=== PATIENT | female | born 1940 | race Caucasian/White ===

== ENCOUNTER → 2023-06-25 13:58 | Outpatient (REF) | payer OTHER, SELFPAY | LOC: WOUND 13:58 | PROVIDERS: ATTENDING PHYSICIAN Surgery; REFERRING PHYSICIAN Family Medicine | DX: L97.822 Non-pressure chronic ulcer of other part of left lower leg with fat layer exposed (principal); S81.812A Laceration without foreign body, left lower leg, initial encounter; Z79.52 Long term (current) use of systemic steroids; J45.40 Moderate persistent asthma, uncomplicated; N20.0 Calculus of kidney; N13.2 Hydronephrosis with renal and ureteral calculous obstruction; X58.XXXA Exposure to other specified factors, initial encounter | CPT/HCPCS: 11042; 99213 ==

== ENCOUNTER → 2023-07-10 13:32 | Outpatient (REF) | payer OTHER, SELFPAY | LOC: WOUND 13:32 | PROVIDERS: ATTENDING PHYSICIAN Surgery; REFERRING PHYSICIAN Internal Medicine Geriatric Medicine | DX: S81.812A Laceration without foreign body, left lower leg, initial encounter (principal); L97.822 Non-pressure chronic ulcer of other part of left lower leg with fat layer exposed; Z79.52 Long term (current) use of systemic steroids; J45.40 Moderate persistent asthma, uncomplicated; N13.2 Hydronephrosis with renal and ureteral calculous obstruction; X58.XXXA Exposure to other specified factors, initial encounter | CPT/HCPCS: 11042 ==

== ENCOUNTER → 2023-07-16 15:08 | Outpatient (REF) | payer OTHER, SELFPAY | LOC: WOUND 15:08 | PROVIDERS: ATTENDING PHYSICIAN Surgery; REFERRING PHYSICIAN Family Medicine | DX: S81.812A Laceration without foreign body, left lower leg, initial encounter (principal); L97.822 Non-pressure chronic ulcer of other part of left lower leg with fat layer exposed; Z79.52 Long term (current) use of systemic steroids; J45.40 Moderate persistent asthma, uncomplicated; N20.0 Calculus of kidney; N13.2 Hydronephrosis with renal and ureteral calculous obstruction; X58.XXXA Exposure to other specified factors, initial encounter | CPT/HCPCS: 11042 ==

== ENCOUNTER → 2023-07-27 13:58 | Outpatient (REF) | payer OTHER, SELFPAY | LOC: WOUND 13:58 | PROVIDERS: ATTENDING PHYSICIAN Surgery; FAMILY PHYSICIAN Family Medicine | DX: S81.812A Laceration without foreign body, left lower leg, initial encounter (principal); L97.822 Non-pressure chronic ulcer of other part of left lower leg with fat layer exposed; Z79.52 Long term (current) use of systemic steroids; J45.40 Moderate persistent asthma, uncomplicated; N13.2 Hydronephrosis with renal and ureteral calculous obstruction | CPT/HCPCS: 11042; 97607 ==

== ENCOUNTER 2023-07-28 07:08 | Inpatient (IN) | payer OTHER, SELFPAY ==
[2023-07-28] VITALS (8 sets, daily range): BP systolic 99–166; BP diastolic 43–64
[2023-07-28 02:59] LABS: % Basophils 0.3 % (0-2); % Eosinophils 0.9 % (0-6); % Immature Granulocytes 0.7 % (0-0.5); % Lymphocytes 5.5 % (20.5-51.1); % Monocytes 1.5 % (1.7-9.3); % Neutrophils 91.1 % (42.2-75.2); Absolute Eosinophils 0.1 10^3/uL (0-0.7); Absolute Immature Granulocytes 0.1 10^3/uL (0-0.05); Absolute Lymphocytes 0.7 10^3/uL (1.2-3.4); Absolute Monocytes 0.2 10^3/uL (0.1-0.6); Hemoglobin 12.2 g/dL (12.0-16.0); Mean Corpuscular Hgb 29.3 pg (27.0-31.0); Mean Corpuscular Volume 88.9 fL (81.0-99.0); Mean Platelet Volume 9.2 fL (7.4-10.4); Nucleated Red Blood Cells % 0 %; Platelet Count 248 10^3/uL (130-400); Red Blood Cell Count 4.16 10^6/uL (4.20-5.40); Red Cell Dist. Width 15.8 % (11.5-14.5); White Blood Cell Count 12.1 10^3/uL (4.8-10.8)
[2023-07-28 03:13] LABS: ALT (SGPT) 20 U/L (0-35); AST (SGOT) 29 U/L (14-36); Albumin 3.9 g/dl (3.5-5.0); Alkaline Phosphatase 70 U/L (38-126); Blood Urea Nitrogen 38 mg/dl (7-17); Calcium 9.2 mg/dl (8.4-10.2); Carbon Dioxide 27 mmol/L (22-30); Chloride 109 mmol/L (98-107); Estimated Creatinine Clearance 49 ml/min; Glucose 107 mg/dl (70-99); Potassium 3.4 mmol/L (3.5-5.1); Sodium 144 mmol/L (135-145); Total Bilirubin 0.6 mg/dl (0.2-1.3); Total Protein 6.6 g/dl (6.3-8.2); eGFR > 60.00
--- NOTE | 2023-07-28 04:01 | ED.GENMED ---
History of Present Illness
<JASMIN Beal - Last Filed: 07/28/23 05:16>
General
Chief Complaint: Back Pain
Source: patient and family
Exam Limitations: none
Time Seen by Provider: 07/28/23 03:47
Nursing documentation reviewed up to this point in time: agreed with
Travel History
Have you had any contact with someone who has COVID-19?: No
Do you have any symptoms of coronavirus? Fever > 100 degrees, chills, cough, shortness of breath, sore throat, loss of taste or smell, muscle aches, or headache?: No
History of Present Illness
History of Present Illness:
This is an 82 year old female, with a PMH of HTN, DVT, cellulitis right lower extremity and chronic wounds on bilateral lower extremity, who presents to the ED c/o back pain x 2 hours. Pt states she awoke with sudden onset lower back pain that has
been worsening. She states she has had kidney stones twice in the past and this pain feels very similar to that. Pt's daughter took her temperature and it was 100.6F. Pt is also having associated nausea but has not vomited. Pt also saw her wound
care doctor this morning where her left leg was debrided and a wound vac was put into place. Since the appointment, she has had increasing warmth and redness to her right upper leg. She denies any CP, SOB, dysuria, urinary frequency, or abdominal
pain.
Past History
<JASMIN Beal - Last Filed: 07/28/23 05:16>
Past History
ED Past Medical History: Asthma, Cancer (Squamous cell CA), HTN, Hypercholesterolemia, Other (Kidney stones, recurrent UTI, Cellulitis, DVT) and Other (kidney stone)
ED Past Surgical History: Tonsilectomy, Urological (Renal stent) and Other (Sinus surgery)
Social History
Tobacco: Smoker
Alcohol: None
Personal:
Living: with family
Family History
Family History: Other (Noncontributory)
Review of Systems
<Liliy[place]ill JASMIN Kamara - Last Filed: 07/28/23 05:16>
Review of Systems
Allergies reviewed?: Yes
Other source history: family
All Other Systems: ROS reviewed and negative except as documented in HPI and ROS
Constitutional: Reports fever
EENT: Reports no symptoms
Respiratory: Reports no symptoms; Denies trouble breathing
Cardiac: Reports no symptoms; Denies chest pain
ABD/GI: Reports nausea; Denies abdominal pain or vomiting
: Reports flank pain; Denies dysuria or frequency
Musculoskeletal: Reports back pain
Skin: Reports no symptoms
Neurological: Reports no symptoms
Psychiatric: Reports no symptoms
Phy Exam
<JASMIN Beal - Last Filed: 07/28/23 05:16>
General Physical Exam
General Presentation: moderate distress (uncomfortable)
General age: appears stated age
General Skin: warm and dry
General Habitus: elderly
General Mental: alert
General Hydration: appears well hydrated
ENT Exam
ENT Exam: EOMI, neck supple, normocephalic and swallowing well
Eye Exam
Eye Exam: PERRL and EOMI
Cardiovascular Exam
Cardiovascular Exam: regular rate/rhythm, no murmur and normal peripheral pulses
Pulmonary Exam
Pulmonary Exam: lungs clear, no respiratory distress, no rales, no crackles, no rhonchi and no wheezing
Gastrointestinal Exam
Gastrointestinal Exam: normal bowel sounds, non tender, soft, non distended and other (unable to assess CVA tenderness due to pt's condition)
Neurological Exam
Neurological Exam: alert and oriented x3
Musculoskeletal Exam
Musculoskeletal Exam: back pain and edema (RLE > LLE)
Skin Exam
Skin Exam: erythema, warmth and other (right leg edema and erythema. tenderness along right calf and thigh. left leg in wound vac)
Psychiatric Exam
Psychiatric Exam: normal mood/affect
Course
<JASMIN Beal - Last Filed: 07/28/23 05:16>
Orders/Labs/Results
Orders:
Orders
07/28/23 02:52
CMP [Comprehensive Metabolic Panel] Urgent
Complete Blood Count/With Diff Urgent
07/28/23 04:17
HYDROmorphone [Dilaudid] 0.5 mg IV NOW STA
Ketorolac [Toradol] 30 mg IV NOW STA
US Periph Venous LOWER Ext RT Urgent
Comment:
Reason For Exam: R leg swelling
07/28/23 04:18
CT Abd/pel Without Iv Or Oral Urgent
Comment:
Reason For Exam: R flank pain
07/28/23 04:40
Urinalysis Reflex To Culture Urgent
Date Specimen was Collected: 07/28/23
Time Specimen was Collected: 04:38
Urine Microscopic Reflex Cult Urgent
07/28/23 04:59
Vancomycin [Vancocin] 1,500 mg 0.9% Sodium Chloride [Nss] 20 ml 0.9% Sodium Chloride 250 ml [Nss] 250 ml IV NOW
Abnormal Lab Results
07/28/23 07/28/23
02:52 04:40
WBC 12.1 H 10^3/uL
(4.8-10.8)
RBC 4.16 L 10^6/uL
(4.20-5.40)
RDW 15.8 H %
(11.5-14.5)
Abs Immat Gran (auto) 0.1 H 10^3/uL
(0-0.05)
Absolute Neuts (auto) 11.0 H 10^3/uL
(1.4-6.5)
Absolute Lymphs (auto) 0.7 L 10^3/uL
(1.2-3.4)
Immature Gran % 0.7 H %
(0-0.5)
Neutrophils % 91.1 H %
(42.2-75.2)
Lymphocytes % 5.5 L %
(20.5-51.1)
Monocytes % 1.5 L %
(1.7-9.3)
Potassium 3.4 L mmol/L
(3.5-5.1)
Chloride 109 H mmol/L
(98-107)
BUN 38 H mg/dl
(7-17)
Glucose 107 H mg/dl
(70-99)
Ur Occult Blood Reflex 1+ A
(Negative)
Leukocyte Esterase Rfl Trace A
(Negative)
Urine RBC 16-20 A /HPF
(0-2)
07/28/23 02:52
07/28/23 02:52
Vital Signs
Initial and Last Documented VS:
Initial Vital Signs
Pulse Resp Pulse Ox
84 20 96
07/28/23 02:30 07/28/23 02:30 07/28/23 02:30
Last Documented Vital Signs
Temp Pulse Resp BP Pulse Ox
98.7 F 80 18 134/43 95
07/28/23 02:33 07/28/23 03:45 07/28/23 03:45 07/28/23 03:00 07/28/23 03:30
<Joshua Anne, DO - Last Filed: 07/28/23 05:57>
Orders/Labs/Results
Orders:
Orders
07/28/23 02:52
CMP [Comprehensive Metabolic Panel] Urgent
Complete Blood Count/With Diff Urgent
07/28/23 04:17
HYDROmorphone [Dilaudid] 0.5 mg IV NOW STA
Ketorolac [Toradol] 30 mg IV NOW STA
US Periph Venous LOWER Ext RT Urgent
Comment:
Reason For Exam: R leg swelling
07/28/23 04:18
CT Abd/pel Without Iv Or Oral Urgent
Comment:
Reason For Exam: R flank pain
07/28/23 04:40
Urinalysis Reflex To Culture Urgent
Date Specimen was Collected: 07/28/23
Time Specimen was Collected: 04:38
Urine Microscopic Reflex Cult Urgent
07/28/23 04:59
Vancomycin [Vancocin] 1,500 mg 0.9% Sodium Chloride [Nss] 20 ml 0.9% Sodium Chloride 250 ml [Nss] 250 ml IV NOW
Abnormal Lab Results
07/28/23 07/28/23
02:52 04:40
WBC 12.1 H 10^3/uL
(4.8-10.8)
RBC 4.16 L 10^6/uL
(4.20-5.40)
RDW 15.8 H %
(11.5-14.5)
Abs Immat Gran (auto) 0.1 H 10^3/uL
(0-0.05)
Absolute Neuts (auto) 11.0 H 10^3/uL
(1.4-6.5)
Absolute Lymphs (auto) 0.7 L 10^3/uL
(1.2-3.4)
Immature Gran % 0.7 H %
(0-0.5)
Neutrophils % 91.1 H %
(42.2-75.2)
Lymphocytes % 5.5 L %
(20.5-51.1)
Monocytes % 1.5 L %
(1.7-9.3)
Potassium 3.4 L mmol/L
(3.5-5.1)
Chloride 109 H mmol/L
(98-107)
BUN 38 H mg/dl
(7-17)
Glucose 107 H mg/dl
(70-99)
Ur Occult Blood Reflex 1+ A
(Negative)
Leukocyte Esterase Rfl Trace A
(Negative)
Urine RBC 16-20 A /HPF
(0-2)
07/28/23 02:52
07/28/23 02:52
Vital Signs
Initial and Last Documented VS:
Initial Vital Signs
Pulse Resp Pulse Ox
84 20 96
07/28/23 02:30 07/28/23 02:30 07/28/23 02:30
Last Documented Vital Signs
Temp Pulse Resp BP Pulse Ox
98.7 F 80 18 134/43 95
07/28/23 02:33 07/28/23 03:45 07/28/23 03:45 07/28/23 03:00 07/28/23 03:30
<JASMIN Beal - Last Filed: 07/28/23 05:16>
*Critical Care Note
Total Time (30-74mins, 75-104mins- exclusive of procedures): Not Applicable
ED Attending Note
<JASMIN Beal - Last Filed: 07/28/23 05:16>
-
Portions of this chart may have been created with voice recognition software.� Occasional wrong word or��sound alike� substitutions may have occurred due to the inherent limitations of voice recognition software.
<Joshua Anne DO - Last Filed: 07/28/23 05:57>
ED Attending Note
Patient seen and examined by attending physician: Yes
I performed the substantive portion of visit, reviewed & personally made and approve the management plan that is documented in note by myself or SHAUNA.: Yes
ED Attending Note:
I have seen and evaluated the patient with a [id number] encounter. I have spoken to the advance practicer provider and involved in the medical history, the physical exam, medical decision making.
Evaluation and management service: agree unless noted differently below.
Results interpretation: agree unless noted differently below.
Focused HPI: 82-year-old female presenting with daughter for evaluation of right flank pain and worsening right leg swelling and redness. Patient has chronic leg wounds and she has a wound VAC on her left leg. Daughter noticed that the right leg
became swollen, red and tender over the past 24 hours. She has a history of cellulitis requiring IV antibiotics and history of DVT. Patient also can and has a history of kidney stones. Daughter states that she is admitted to the hospital when her
leg looks like this
Physical exam: Patient uncomfortable. Mild right CVA tenderness. Right leg edema and erythema. Tenderness to calf and thigh. Left leg is wrapped with wound VAC.
Medical Decision Making: Given her red and swollen leg, will obtain ultrasound to rule out DVT. Will empirically start vancomycin given concern for cellulitis with evidence of leukocytosis and fevers described at home. Given the flank pain, will
obtain CT to rule out kidney stone pathology and will obtain urinalysis. Will ultimately admit
Update 5:55 AM: CT negative for kidney stone. There is evidence of questionable cellulitis on CT findings of the thigh which correlate to physical exam
Discharge Plan
Departure
Patient Disposition: Admit
Date of Disposition: 07/28/23
Time of Disposition: 05:57
Admit to: Med/Surg
Presentation/result/management discussed w/ accepting MD/DO: Hospitalist
Discharge Problem:
Bilateral cellulitis of lower leg
Prescriptions:
No Action
methylprednisolone 4 MG tablet
4 mg PO DAILY
cranberry extract [Ellura] 200 mg Capsule
36 mg PO DAILY Qty: 0
carvedilol 12.5 MG tablet
12.5 mg PO BID
albuterol sulfate 2.5 mg /3 mL (0.083 %) Solution For Nebulization
2.5 mg INHALATION R Q4HPRN PRN (Reason: sob)
therapeutic multivitamin Tablet
1 tab PO DAILY
olmesartan-hydrochlorothiazide [Benicar HCT] 40-25 mg Tablet
1 tab PO DAILY
amlodipine 5 mg tablet
5 mg PO DAILY Qty: 30 0RF
fluticasone propion-salmeterol [Wixela Inhub] 500-50 mcg/dose Blister With Device
1 inh INHALATION R BID
acetaminophen [Tylenol] 325 mg Tablet
650 mg PO Q4HPRN PRN (Reason: mild pain)
linezolid 600 mg Tablet
600 mg PO BID Qty: 9 0RF
Referrals:
Roberto Carlos Almanza, DO [Family Provider] -
Interventions
Interventions:
*Risk Screen - Suicide Last Done: 07/28/23 02:24
*General Assessment Last Done: 07/28/23 02:24
*Neglect/Abuse Screening Last Done: 07/28/23 02:24
ED- Fall Risk Assessment Last Done: 07/28/23 02:28
*ED COVID-19 Vaccine History Last Done: 07/28/23 02:24
ED-Musculoskeletal Assessment Last Done: 07/28/23 02:31
[2023-07-28] MEDS: DILAUDID 0.5 MG IV (04:23)
[2023-07-28] MEDS: TORADOL 30 MG IV (04:23)
[2023-07-28 05:07] LABS: Urine Albumin Negative (Neg - Trace); Urine Bilirubin Negative (Negative); Urine Character Clear (Clear); Urine Color Yellow; Urine Glucose Negative (Negative); Urine Ketone Negative (Negative); Urine Leukocyte Trace (Negative); Urine Nitrite Negative (Negative); Urine Occult Blood 1+ (Negative); Urine Urobilinogen Negative (Neg - 1+)
[2023-07-28] MEDS: VANCOCIN 300 ML IV (05:14)
[2023-07-28] MEDS: VANCOCIN 300 MG IV (05:14)
[2023-07-28 05:35] LABS: Urine Squamous Cell >30 /LPF (Few)
[2023-07-28 05:36] LABS: Urine Red Blood Cell 16-20 /HPF (0-2)
--- NOTE | 2023-07-28 06:54 | HPS.HSE ---
Family Physician
-
Family Physician: Roberto Carlos Almanza
Chief Complaint
-
Back Pain
History of Present Illness
Patient is an 82y F with PMH significant for PAD, chronic LE skin changes / cellulitis, prior DVT and squamous cell skin cancer who presents to ED complaining of back pain and hip pain. Patient states that she had some lower back discomfort last
PM when going to bed. She slpet poorly and noted worsening low back and bilateral hip pain overnight. Early this AM, she called her daughter for assistance and noted that she was unable to get out of bed due to her pain. Patient denies any N/V,
chills, diaphoresis, etc. She denies any recent injury, fall or trauma.
Patient [facility] and on 07/27 she underwent debridement and wound vac change to the E. Wound Vac has been in place overall since June.
Patient presented to the ED this AM concerned that she might have a kidney stone. She has had these in the past and symptoms seemed similar. CT scan in the ED revealed no ureteral / obstructing stones.
Patient was noted to have redness and swelling of the RLE > LLE in the ED and was referred for admission for recurrent RLE cellulitis.
US done in the ED was negative for DVT.
Medical History
Past Medical History
Past Medical History: Reports Other
Additional Past Medical History:
Asthma
GERD
Hypertension
Chronic bilateral lower extremity wounds
History of DVT
Squamous cell carcinoma (LLE)
Actinic Keratoses
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
Past Surgical History: Reports Other
Additional Past Surgical History:
Skin Cancer Excision / Skin Grafting LLE
Tonsillectomy
Sinus surgery
Social History
Tobacco: Former Smoker (Quit smoking 40 years ago.)
Alcohol: None
Drug: Marijuana
Personal: Single
Living: With Family
Family History
Family History: Not pertinent
Allergies / Home Medications
Allergies reflects when Allergies were last updated in [facility].
Home Medications with original date entered in [facility]
Allergy/Medication List:
Allergies
Allergy/AdvReac Type Severity Reaction Status Date / Time
doxycycline Allergy Unknown Verified 07/28/23 02:34
morphine Allergy Unknown Verified 07/28/23 02:34
ofloxacin [From Floxin] Allergy TOLERATED Verified 07/28/23 02:34
CIPRO
oxycodone Allergy Nausea / Verified 07/28/23 02:34
Vomiting
sulfamethoxazole Allergy Swelling Verified 07/28/23 02:34
[From Bactrim]
trimethoprim [From Bactrim] Allergy Swelling Verified 07/28/23 02:34
Home Medications
methylprednisolone 4 mg tablet 4 mg PO DAILY inflammation 03/18/20
carvedilol 12.5 mg tablet 12.5 mg PO BID Blood pressure 05/10/22
cranberry extract 200 mg capsule (Ellura) 36 mg PO DAILY Supplement ##0 05/10/22
albuterol sulfate 2.5 mg/3 mL (0.083 %) solution for nebulization 2.5 mg inhalation R Q4HPRN PRN sob 10/31/22
olmesartan 40 mg-hydrochlorothiazide 25 mg tablet (Benicar HCT) 1 tab PO DAILY Blood Pressure 10/31/22
therapeutic multivitamin 1 tab PO DAILY Supplement 10/31/22
amlodipine 5 mg tablet 5 mg PO DAILY Blood pressure #30 tabs 11/03/22
fluticasone 500 mcg-salmeterol 50 mcg/dose blistr powdr for inhalation (Wixela Inhub) 1 inh inhalation R BID Lung/Breathing Issues 03/03/23
acetaminophen 325 mg tablet (Tylenol) 650 mg PO Q4HPRN PRN mild pain 03/31/23
Review of Systems
-
History Source: Patient
A 12 point ROS was completed and negative except as noted: Yes
Constitutional: Reports Fever and Fatigue; Denies Chills
EENT: Denies Sore Throat
Respiratory: Denies Cough or Trouble Breathing
Cardiac: Denies Chest Pain or Palpitations
Abdomen/GI: Denies Abdominal Pain, Nausea, Vomiting or Diarrhea
: Reports Flank Pain; Denies Dysuria or Frequency
Musculoskeletal: Reports Joint Pain and Edema
Skin: Reports Other (Redness)
Neurological: Denies Dizzy or Headache
Physical Exam
Vital Signs
Vital Signs
Temp Pulse Resp BP Pulse Ox
98.7 F 82 21 114/46 99
07/28/23 02:33 07/28/23 06:30 07/28/23 06:30 07/28/23 06:28 07/28/23 06:30
Physical Exam
General: Other (82y F in no acute distress.)
HEENT: Moist mucous membranes and PERRLA
Respiratory: Clear; No Wheezes, Rales or Rhonchi
Cardiac: S1/S2 and Regular Rhythm; No Murmur
GI: Soft, Non Tender, Non Distended and Normal Bowel Sounds
Musculoskeletal: Other (Lacy erythema R medial thigh with more confluent erythema and associated tenderness in the lower leg. Small superficial laceration superior to the R knee without discharge. Wound Vac in place L lower leg.)
Skin: Other (Scattered actinic keratoses / chronic skin changes.)
Neuro: AO x 3
Laboratory Results
-
07/28/23 02:52
07/28/23 02:52
Laboratory Results
Total Bilirubin 0.6 mg/dl (0.2-1.3) 07/28/23 02:52
AST 29 U/L (14-36) 07/28/23 02:52
ALT 20 U/L (0-35) 07/28/23 02:52
Alkaline Phosphatase 70 U/L (38-126) 07/28/23 02:52
Impression/Plan
-
A/P: Patient is an 82y F with PMH significant for ASCVD / PAD, chronic LE wounds and squamous cell skin cancer who presents to ED complaining of low back pain / hip pain / leg pain.
Back Pain
Cellulitis
- Admit for further evaluation and treatment.
- Back pain is now resolved - ? related to RLE cellulitis - though not certain how this would correlate with her area of complaint.
- Increased swelling, pain and redness in the RLE per patient. Recent incidental skin puncture / laceration (with her fingernail) may be source.
- IV abx with Vanco for now.
- Wound Care evaluation for RLE as well as chronic / LLE wound vac management.
- Follow for clinical improvement.
- PT / OT evaluations.
- Monitor for any new / recurrent symptoms.
- Consider spine imaging in this chronically immunocompromised patient if back pain recurs.
ASCVD / PAD
- Established LE PAD. Non-invasive studies done during prior admission (04/2023).
- Follow-up with Vascular Surgery as an outpatient.
Benign Hypertension
- Stable. Continue outpatient regimen with holding parameters.
Possible Adrenal Insufficiency
- Continue chronic methylprednisolone with no changes.
Asthma without Acute Exacerbation
- Stable. Follow for any new dyspna, wheezing, etc.
- Albuterol PRN.
History of DVT
DVT Prophylaxis
- US today is negative for DVT
- Subcut Heparin
Code Status: Full
--- NOTE | 2023-07-28 08:00 | W.PN.HOSP.TC ---
Today's Communication/Plan
-
see A/P
Assessment / Plan
Assessment / Plan
82y F with PMH significant for PAD, chronic LE skin changes / cellulitis, prior DVT and squamous cell skin cancer who presented to ED complaining of back pain and hip pain.�Patient stated that she had some lower back discomfort when going to
bed.� She slept poorly and noted worsening low back and bilateral hip pain overnight.�Early in the morning, she called her daughter for assistance and noted that she was unable to get out of bed due to her pain.�Patient denies any N/V, chills,
diaphoresis, etc.� She denies any recent injury, fall or trauma.
Patient is followed by [facility] and on 07/27 she underwent debridement and wound vac change to the LLE.� Wound Vac has been in place overall since June.
Patient presented to the ED with concern that she might have a kidney stone.� She has had these in the past and symptoms seemed similar.�
CT scan in the ED revealed no ureteral / obstructing stones.
Patient was noted to have redness and swelling of the RLE > LLE in the ED and was referred for admission for recurrent RLE cellulitis.
US done in the ED was negative for DVT.
A/P:
# Back Pain- resolved
# Possible cellulitis
Back pain is now resolved - ? related to RLE cellulitis - though not certain how this would correlate with her area of complaint.
Increased swelling, pain and redness in the RLE per patient.�Recent incidental skin puncture / laceration (with her fingernail) may be source.
Unclear if pt is on linezolid at home or not (pt states that she is not, linezolid is currently unverified). She was started with IV abx Vanco.
Wound Care evaluation for RLE as well as chronic / LLE wound vac management.
ID CS
Follow for clinical improvement.
PT / OT evaluations.
Consider spine imaging in this chronically immunocompromised patient if back pain recurs.
# ASCVD / PAD
Established LE PAD.�Non-invasive studies done during prior admission (04/2023).
Follow-up with Vascular Surgery as an outpatient.
# Benign Hypertension- Stable.�
Continue outpatient regimen with holding parameters.
# Possible Adrenal Insufficiency
Continue chronic methylprednisolone with no changes.
# Asthma without Acute Exacerbation- Stable.�
Follow for any new dyspna, wheezing, etc.
Albuterol PRN.
# History of DVT
US on admission negative for DVT
# Hypokalemia
Replete K
DVT Prophylaxis: Lovenox SQ
Code Status:� Full
Pending proper med recc
updated daughter on the phone
Anticipated Discharge: 24 - 48 hours
Subjective/Interval History
-
Date of Service: July 28, 2023
Objective Data
-
Labs:
Laboratory Results
07/28/23
02:52
WBC 12.1 H
Hgb 12.2
Hct 37.0
Plt Count 248
Sodium 144
Potassium 3.4 L
Chloride 109 H
Carbon Dioxide 27
BUN 38 H
Creatinine 0.8
Glucose 107 H
Calcium 9.2
Total Bilirubin 0.6
AST 29
ALT 20
Alkaline Phosphatase 70
Vital Signs:
Vital Signs
Temp Pulse Resp BP Pulse Ox
37.4 C 78 22 99/64 99
07/28/23 07:51 07/28/23 07:51 07/28/23 07:51 07/28/23 07:51 07/28/23 07:51
Review of Systems
-
All other systems: Reviewed and negative
Physical Exam
-
General: Well Developed, Well Nourished, Comfortable and Appears Chronically Ill
HEENT: Normocephalic
Respiratory: Clear to Auscultation and Non Labored Respirations; Negative Accessory Resp Muscle Use
Cardiac: Regular Rhythm and S1/S2
GI: Soft and Nontender
Skin: Other (R leg with wound vac )
Neuro: Awake and Alert
Psych: Calm and Intact Judgement/Insight
Data Reviewed
-
Ultrasound: Report Reviewed by me
Labs: Labs Reviewed by me
[2023-07-28] MEDS: KCL 40 MEQ PO (08:22)
--- NOTE | 2023-07-28 10:57 | PHA.VAN.IN ---
Assessment
- Assessment
Renal Function: Appears similar to baseline
Renal Function may be Overestimated due to: age
Historical Micro: History of MRSA infection
- Previous Dosing Experience
Previous Regimen: 1000mg q24h
Date of Regimen: 04/2023
Provided Trough of: 9.6
Patient's SCR is: Similar to previous dosing experience
Patient's weight is: Elevated compared to previous dosing experience (69kg now vs 59kg (04/2023))
AUC Dosing Plan
- Dosing Variables
Dosing Weight (kg): 69
Dosing CrCl (ml/min): 49
Vd coefficient (L/kg): 0.7
- Empiric Dosing
Initial / Loading Dose: 1500mg
Maintenance Regimen: 1000mg q24h
Estimated AUC (mcg*h/mL): 470
Estimated Peak (mcg*h/mL): 31.3
Estimated Trough (mcg/ml): 11.1
Estimated Half Life (H): 15.4
- Monitoring
No levels ordered at this time: consider at steady state
Pharmacokinetics Vancomycin I
- -
Patient Age: 82
Patient Sex: Female
Vancomycin Day #: 1
Indication: Skin And Soft Tissue
Requesting Provider: Dr. Terrell
Pertinent Antimicrobial Allergies:
doxycycline=unknown
bactrim=swelling
Height / Weight:
Height 5 ft 2 in
Actual Weight 69 kg
IBW in k.1
- Vital Signs / Lab Results
Temp Pulse Resp BP Pulse Ox
99.4 F 78 22 99/64 99
07/28/23 07:51 07/28/23 07:51 07/28/23 07:51 07/28/23 07:51 07/28/23 07:51
Lab Results - Hematology
07/28/23
02:52
WBC 12.1 H
Lab Results - Chemistry
07/28/23
02:52
BUN 38 H
Creatinine 0.8
Estimated Creat Clear 49
Albumin 3.9
Lab Results - Urine
07/28/23
04:40
Urine Nitrite (Reflex) Negative
Leukocyte Esterase Rfl Trace A
Urine WBC (Reflex) 6-10
Ur Squamous Epith Cells >30
[2023-07-28] MEDS: NORVASC 5 MG PO (12:18)
[2023-07-28] MEDS: MEDROL 4 MG PO (12:18)
[2023-07-28] MEDS: THERAGRAN 1 TABLET PO (12:18)
--- NOTE | 2023-07-28 13:17 | CON.ID ---
Consultation
-
Date/Time Consultation Requested: 07/28/21 8:22
Date/Time Consultation Performed: 07/28/23 13:17
Requesting Provider: Dr Romero
Performing Provider: Dr Lemon
Reason for Consultation: cellulitis
Chief Complaint / Past History
Chief Complaint
back pain
History of Present Illness
Ms Teixeira is an 82 year old female with history of PAD, SCC of the LEFT LE, chronic wound on the LEFT distal lateral leg who presented here today for back and hip pain x24 hours and 24 hours of RIGHT leg redness, tenderness swelling. Hip pain is
bilateral and progressed over the day to the point that she couldnt get out of bed. No nasuea, vomiting chills, sweats, injury to the area. On 07/27 she underwent debridement and wound vac change of the LLE. A photo is available in the ecw wound
care note and was without erythema, warmth, tenderness or drainage. There was concern for renal stone per patient and she has a history of renal stones
Since arrival here tmax 100.5 orally, bp stable, wbc 12, hgb 12, plt 248, a L shift is noted, cr 0.8, CT a/p: possible ileus, severe DJD lumbar spine, severe right lateral recess stenosis, possible cellulitis vs scarring prox L fischer. She is
currently on vancomycin. ID is consulted for assistance with management.
Past History
Additional Past Medical History:
Asthma
GERD
Hypertension
Chronic bilateral lower extremity wounds
History of DVT
Squamous cell carcinoma (LLE)
Actinic Keratoses
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
Additional Past Surgical History:
Skin Cancer Excision / Skin Grafting LLE
Tonsillectomy
Sinus surgery
Allergy History:
doxycycline Allergy (Verified 07/28/23 02:34)
Unknown
morphine Allergy (Verified 07/28/23 02:34)
Unknown
ofloxacin [From Floxin] Allergy (Verified 07/28/23 02:34)
TOLERATED CIPRO
oxycodone Allergy (Verified 07/28/23 02:34)
Nausea / Vomiting
sulfamethoxazole [From Bactrim] Allergy (Verified 07/28/23 02:34)
Swelling
trimethoprim [From Bactrim] Allergy (Verified 07/28/23 02:34)
Swelling
Medications Reviewed: Yes
Social History
Tobacco: Former Smoker
Alcohol: None
Drug: Marijuana
Family History
Family History: Not Pertinent
Review of Systems
Review of Systems
General: Fever
All systems: All other systems were reviewed and were negative
Vital Signs
Temp Pulse Resp BP Pulse Ox
100.5 F H 86 16 114/54 99
07/28/23 12:17 07/28/23 12:18 07/28/23 12:17 07/28/23 12:18 07/28/23 12:17
Physical Exam
Physical Exam
Constitutional: No Acute Distress
Cardiovascular: Regular Rate and S1/S2; Negative Murmur or Rub
Pulmonary: Clear and Symmetric; Negative Wheezes, Rales or Rhonchi
Gastrointestinal: Soft, Non Tender, Non Distended and Normal Bowel Sounds
Extremities: Other (R LE: red, swollen, hot tender, LLE: wound vac in place, functional)
Skin: Warm and Dry; Negative Rash or Jaundice
Lab / Diagnostic Study Results
07/28/23 02:52
07/28/23 02:52
Abs Immat Gran (auto) 0.1 10^3/uL (0-0.05) H 07/28/23 02:52
Absolute Neuts (auto) 11.0 10^3/uL (1.4-6.5) H 07/28/23 02:52
Absolute Lymphs (auto) 0.7 10^3/uL (1.2-3.4) L 07/28/23 02:52
Absolute Monos (auto) 0.2 10^3/uL (0.1-0.6) 07/28/23 02:52
Absolute Basos (auto) 0.0 10^3/uL (0-0.2) 07/28/23 02:52
Immature Gran % 0.7 % (0-0.5) H 07/28/23 02:52
Neutrophils % 91.1 % (42.2-75.2) H 07/28/23 02:52
Lymphocytes % 5.5 % (20.5-51.1) L 07/28/23 02:52
Monocytes % 1.5 % (1.7-9.3) L 07/28/23 02:52
Eosinophils % 0.9 % (0-6) 07/28/23 02:52
Basophils % 0.3 % (0-2) 07/28/23 02:52
Ur Squamous Epith Cells >30 /LPF (Few) 07/28/23 04:40
Microbiology Results
Micro:
07/28/23 12:27 Blood Culture - Pending
Blood/Venous
07/28/23 12:27 Blood Culture - Pending
Blood/Venous
Assessment / Plan
RIGHT Lower Extremity Nonpurulent Cellulitis
Chronic Wound of the Left lower extremity with wound vac
SCC of the L lower extremity
- blood cultures x2
- start cefazolin stop vancomycin
- too tender for compression
- elevate at tolerated
- follow clinically
[2023-07-28 13:26] LABS: TSH Reflex To Free T4 2.77 uIU/ml (0.47-4.68)
[2023-07-28] MEDS: ANCEF 10 IV (16:17)
[2023-07-28] MEDS: TORADOL 15 MG IV (16:24)
--- NOTE | 2023-07-28 17:39 | PTCARENOTE ---
Pt. received from ED around 1400. Pt. was a pulling unit floorhand from the stretcher to the bed. VS taken, wounds assessed, and pt. oriented to room. Pt. daughter given update about medicine and plan of care. Will continue to maintain a safe environment and
call stewart within reach.
[2023-07-28] MEDS: ADVAIR HFA 230/21 MCG INHALER 2 PUFF INH (19:38)
[2023-07-28] MEDS: COREG 12.5 MG PO (22:01)
[2023-07-29] MEDS: ANCEF 10 IV ×3 (00:05→16:48)
[2023-07-29] MEDS: FLUSH (NSS) 1 FLUSH IV (00:07)
[2023-07-29 05:28] VITALS: BMI 26.2
[2023-07-29 06:32] LABS: Hematocrit 30.3 % (37.0-47.0); Hemoglobin 9.9 g/dL (12.0-16.0); Mean Corp Hgb Conc. 32.7 g/dL (33.0-37.0); Mean Corpuscular Hgb 29.1 pg (27.0-31.0); Mean Corpuscular Volume 89.1 fL (81.0-99.0); Mean Platelet Volume 9.6 fL (7.4-10.4); Platelet Count 187 10^3/uL (130-400); Red Cell Dist. Width 15.9 % (11.5-14.5); White Blood Cell Count 18.7 10^3/uL (4.8-10.8)
[2023-07-29 06:52] LABS: Blood Urea Nitrogen 33 mg/dl (7-17); Calcium 8.4 mg/dl (8.4-10.2); Carbon Dioxide 28 mmol/L (22-30); Chloride 107 mmol/L (98-107); Estimated Creatinine Clearance 38 ml/min; Glucose 84 mg/dl (70-99); Magnesium 2.1 mg/dl (1.6-2.3); Sodium 136 mmol/L (135-145); eGFR > 60.00
[2023-07-29] MEDS: ADVAIR HFA 230/21 MCG INHALER 2 PUFF INH ×2 (08:03→19:54)
[2023-07-29 08:05] VITALS: BP 125/48
[2023-07-29] MEDS: COREG 12.5 MG PO ×2 (08:41→20:34)
[2023-07-29] MEDS: THERAGRAN 1 TABLET PO (08:43)
[2023-07-29] MEDS: NORVASC 5 MG PO (08:44)
[2023-07-29] MEDS: MEDROL 4 MG PO (08:44)
[2023-07-29] MEDS: TORADOL 15 MG IV (08:50)
--- NOTE | 2023-07-29 10:15 | CM ---
CM following re: discharge planning.
Reviewed pt's chart, met with pt.
Pt is an 82 year old female, admitted with primary dx of Cellulitis.
Pt reports she lives with daughter in a 2SH, 3 steps to enter, has 3 supportive children. Pt reports she ambulates with a walker, has a wheelchair and uses it for a long distance. Pt reports she is known VN. Pt reports she was at [facility] and
[facility] in the past. Pt reports she is enrolled in [facility] waiver community based services, receives 3-5 hours of home health aide provided by [facility]. Pt stated she did not like going to a SNF and she preferred to return
back home at discharge with VN and caregiver services.
PT and OT will evaluate the pt to determine a level of care at discharge.
PCP: Roberto Carlos Almanza
pharmacy: [facility]
D/C plan: per pt's request, home with VN, resumptions of caregiver services and family support.
CM will follow with discharge plan updates as hospitalization progresses
--- NOTE | 2023-07-29 10:32 | W.PN.ID1 ---
Date of Service
Date of Service: July 29, 2023
Today's Communication
continue cefazolin
Assessment / Plan
RIGHT Lower Extremity Nonpurulent Cellulitis
Chronic Wound of the Left lower extremity with wound vac
SCC of the L lower extremity
Leukocytosis on steroids
On chronic steroids outpatient
- increasing leukocytosis on steroids - clinical exam is much better
- blood cultures x2 no growth to date
- continue cefazolin
- still too tender for compression
- elevate at tolerated
- follow clinically
Chief Complaint
-: Cellulitis
Subjective / Review of Systems
tmax 100.5
bp stable
increasing leukocytosis on steroids
leg much less red
is on medrol at home for asthma
Vital Signs / Physical Exam
Vital Signs
Vital Signs
Temp Pulse Resp BP Pulse Ox
99.6 F 71 19 125/48 95
07/29/23 08:05 07/29/23 08:07 07/29/23 08:07 07/29/23 08:05 07/29/23 08:07
Physical Exam
Constitutional: No Acute Distress
Cardiovascular: Regular Rate and S1/S2; Negative Murmur or Rub
Pulmonary: Clear and Symmetric; Negative Wheezes or Rales
Gastrointestinal: Soft, Non Tender, Non Distended and Normal Bowel Sounds
Skin: Warm, Dry and Rash (much less erythema of the left leg, remains quite ); Negative Jaundice
Objective Data
Lab Data
Lab Results
07/29/23 06:17
07/29/23 06:17
Estimated Creat Clear 38 ml/min 07/29/23 06:17
Total Bilirubin 0.6 mg/dl (0.2-1.3) 07/28/23 02:52
AST 29 U/L (14-36) 07/28/23 02:52
ALT 20 U/L (0-35) 07/28/23 02:52
Alkaline Phosphatase 70 U/L (38-126) 07/28/23 02:52
Most recent labs reviewed.
Micro Results:
07/28/23 12:27 Blood Culture - Pending
Blood/Venous
07/28/23 12:27 Blood Culture - Pending
Blood/Venous
--- NOTE | 2023-07-29 11:12 | PTCARENOTE ---
stated she had not moved her bowels since , her normal is EOD. At home she would take a senna and or a ducolox. notified. Pt appears dehydrated to me with poor tenting on arms and chest, yet pitting edema in BLE. Yest H/H and BUn
Creat was 12.2/37 and 38/0.8 and today was 9.9 30.3 and 33. 0.9 respectively. She is drinking great and ate 100% of her breakfast. aware. Pt found on 1.5 liers 95%. Pt placed on room air and i will re check and monitor over next half hour.
continuous pulse ox is on. at 955 on room air
[2023-07-29] MEDS: SENOKOT-S 1 TABLET PO ×2 (12:24→20:35)
--- NOTE | 2023-07-29 13:06 | W.PN.HOSP.TC ---
Today's Communication/Plan
-
see A/P
Assessment / Plan
Assessment / Plan
82y F with PMH significant for PAD, chronic LE skin changes / cellulitis, prior DVT and squamous cell skin cancer who presented to ED complaining of back pain and hip pain.�Patient stated that she had some lower back discomfort when going to
bed.� She slept poorly and noted worsening low back and bilateral hip pain overnight.�Early in the morning, she called her daughter for assistance and noted that she was unable to get out of bed due to her pain.�Patient denies any N/V, chills,
diaphoresis, etc.� She denies any recent injury, fall or trauma.
[facility] and on 07/27 she underwent debridement and wound vac change to the LLE.� Wound Vac has been in place overall since June.
Patient presented to the ED with concern that she might have a kidney stone.� She has had these in the past and symptoms seemed similar.�
CT scan in the ED revealed no ureteral / obstructing stones.
Patient was noted to have redness and swelling of the RLE > LLE in the ED and was referred for admission for recurrent RLE cellulitis.
US done in the ED was negative for DVT.
A/P:
# Back Pain- resolved
# RLE cellulitis
Back pain is now resolved. Consider spine imaging if back pain recurs.
Increased swelling, pain and redness in the RLE per patient.�Recent incidental skin puncture / laceration (with her fingernail) may be source.
ID on board, started cefazolin off vancomycin
Wound Care evaluation for RLE as well as chronic / LLE wound vac management.
Follow for clinical improvement.
PT / OT recc home PT vs SNF
# ASCVD / PAD
Established LE PAD.�Non-invasive studies done during prior admission (04/2023).
Follow-up with Vascular Surgery as an outpatient.
# Benign Hypertension- Stable.�
Continue outpatient Coreg
DCed Norvasc due to leg swelling
monitor BP and consider adding a second agent if BP starts to increase
# Possible Adrenal Insufficiency
Continue chronic methylprednisolone with no changes.
# Asthma without Acute Exacerbation- Stable.�
Follow for any new dyspna, wheezing, etc.
Albuterol PRN.
# History of DVT
US on admission negative for DVT
# Hypokalemia
Replete K
DVT Prophylaxis: Lovenox SQ
Code Status:� Full
Anticipated Discharge: 24 - 48 hours
Subjective/Interval History
-
Date of Service: July 29, 2023
Objective Data
-
Labs:
Laboratory Results
07/29/23
06:17
WBC 18.7 H
Hgb 9.9 L
Hct 30.3 L
Plt Count 187 D
Sodium 136 D
Potassium 4.0
Chloride 107
Carbon Dioxide 28
BUN 33 H
Creatinine 0.9
Glucose 84
Calcium 8.4
Vital Signs:
Vital Signs
Temp Pulse Resp BP Pulse Ox
37.6 C 71 19 125/48 95
07/29/23 08:05 07/29/23 08:07 07/29/23 08:07 07/29/23 08:05 07/29/23 08:07
I&O
07/28/23 07/29/23 07/30/23
06:59 06:59 06:59
Intake Total 980 / 980
Output Total 150 / 150
Balance 830 / 830
Review of Systems
-
All other systems: Reviewed and negative
Physical Exam
-
General: Well Developed, Well Nourished, Comfortable and Appears Chronically Ill
HEENT: Normocephalic and Oxygen (2L NC)
Respiratory: Clear to Auscultation and Non Labored Respirations; Negative Accessory Resp Muscle Use
Cardiac: Regular Rhythm and S1/S2
GI: Soft and Nontender
Skin: Other (R leg with wound vac )
Neuro: Awake and Alert
Psych: Calm
Data Reviewed
-
Ultrasound: Report Reviewed by me
Labs: Labs Reviewed by me
[2023-07-29 13:09] VITALS: BP 103/37; PULSE 78; O2SAT 96
[2023-07-29 15:00] VITALS: BP 115/61
[2023-07-30] MEDS: ANCEF 10 IV ×4 (00:16→23:05)
[2023-07-30 00:22] VITALS: BP 131/45
[2023-07-30 05:59] LABS: Hematocrit 30.6 % (37.0-47.0); Hemoglobin 9.8 g/dL (12.0-16.0); Mean Corpuscular Hgb 29.4 pg (27.0-31.0); Mean Corpuscular Volume 91.9 fL (81.0-99.0); Mean Platelet Volume 10.2 fL (7.4-10.4); Platelet Count 192 10^3/uL (130-400); Red Blood Cell Count 3.33 10^6/uL (4.20-5.40); Red Cell Dist. Width 15.4 % (11.5-14.5); White Blood Cell Count 18.7 10^3/uL (4.8-10.8)
[2023-07-30 06:00] VITALS: BMI 26.0
[2023-07-30 06:27] LABS: Blood Urea Nitrogen 32 mg/dl (7-17); Calcium 8.6 mg/dl (8.4-10.2); Carbon Dioxide 29 mmol/L (22-30); Chloride 103 mmol/L (98-107); Estimated Creatinine Clearance 37 ml/min; Glucose 91 mg/dl (70-99); Sodium 138 mmol/L (135-145); eGFR > 60.00
[2023-07-30] MEDS: SENOKOT-S 1 TABLET PO ×2 (07:45→20:16)
[2023-07-30] MEDS: THERAGRAN 1 TABLET PO (07:45)
[2023-07-30] MEDS: MEDROL 4 MG PO (07:45)
[2023-07-30] MEDS: COREG 12.5 MG PO ×2 (07:45→20:16)
[2023-07-30 07:46] VITALS: BP 139/51
[2023-07-30] MEDS: ADVAIR HFA 230/21 MCG INHALER 2 PUFF INH ×2 (07:55→19:45)
--- NOTE | 2023-07-30 10:22 | W.PN.HOSP.TC ---
Today's Communication/Plan
-
see A/P
Assessment / Plan
Assessment / Plan
82y F with PMH significant for PAD, chronic LE skin changes / cellulitis, prior DVT and squamous cell skin cancer who presented to ED complaining of back pain and hip pain.�Patient stated that she had some lower back discomfort when going to
bed.� She slept poorly and noted worsening low back and bilateral hip pain overnight.�Early in the morning, she called her daughter for assistance and noted that she was unable to get out of bed due to her pain.�Patient denies any N/V, chills,
diaphoresis, etc.� She denies any recent injury, fall or trauma.
[facility] and on 07/27 she underwent debridement and wound vac change to the LLE.� Wound Vac has been in place overall since June.
Patient presented to the ED with concern that she might have a kidney stone.� She has had these in the past and symptoms seemed similar.�
CT scan in the ED revealed no ureteral / obstructing stones.
Patient was noted to have redness and swelling of the RLE > LLE in the ED and was referred for admission for recurrent RLE cellulitis.
US done in the ED was negative for DVT.
A/P:
# Back Pain- resolved
# RLE cellulitis
Back pain has resolved. Consider spine imaging if back pain recurs.
Increased swelling, pain and redness in the RLE per patient.�Recent incidental skin puncture / laceration (with her fingernail) may be source.
ID on board, started cefazolin off vancomycin
Wound Care evaluation for RLE as well as chronic / LLE wound vac management.
Follow for clinical improvement.
PT / OT recc home PT vs SNF
# ASCVD / PAD
Established LE PAD.�Non-invasive studies done during prior admission (04/2023).
Follow-up with Vascular Surgery as an outpatient.
# Benign Hypertension- Stable.�
Continue outpatient Coreg
DCed Norvasc due to leg swelling
monitor BP and consider adding a second agent if BP starts to increase
# Possible Adrenal Insufficiency
Continue chronic methylprednisolone with no changes.
# Asthma without Acute Exacerbation- Stable.�
Follow for any new dyspna, wheezing, etc.
Albuterol PRN.
# History of DVT
US on admission negative for DVT
# Hypokalemia
Repleted K
DVT Prophylaxis: Lovenox SQ
Code Status:� Full
DW RN
Anticipated Discharge: Within 24 hours
Subjective/Interval History
-
Date of Service: July 30, 2023
Objective Data
-
Labs:
Laboratory Results
07/30/23
05:29
WBC 18.7 H
Hgb 9.8 L
Hct 30.6 L
Plt Count 192
Sodium 138
Potassium 4.0
Chloride 103
Carbon Dioxide 29
BUN 32 H
Creatinine 0.9
Glucose 91
Calcium 8.6
Vital Signs:
Vital Signs
Temp Pulse Resp BP Pulse Ox
36.6 C 74 16 139/51 95
07/30/23 07:46 07/30/23 07:58 07/30/23 07:58 07/30/23 07:46 07/30/23 07:58
I&O
07/29/23 07/30/23 07/31/23
06:59 06:59 06:59
Intake Total 980 / 980 2400 / 2400
Output Total 150 / 150 350 / 350
Balance 830 / 830 2049
Review of Systems
-
All other systems: Reviewed and negative
Physical Exam
-
General: Well Developed, Well Nourished, Comfortable and Appears Chronically Ill
HEENT: Normocephalic and Oxygen (1L NC)
Respiratory: Clear to Auscultation and Non Labored Respirations; Negative Accessory Resp Muscle Use
Cardiac: Regular Rhythm and S1/S2
GI: Soft and Nontender
Skin: Other (left leg with wound vac )
Neuro: Awake and Alert
Psych: Calm
Data Reviewed
-
Ultrasound: Report Reviewed by me
Labs: Labs Reviewed by me
--- NOTE | 2023-07-30 12:29 | WOUNDNOTE ---
R ANKLE L MEDIAL ANKLE
--- NOTE | 2023-07-30 12:31 | WOUNDNOTE ---
WON RN note: Patient admitted with cellulitis of legs. Patient lives with her daughter and is current with VN. She follows [facility].
See H&P for complete history.
PMH: squamous cell ca LLE with XRT, recent biopsy L medial ankle she is following [facility] (next appt 04/17/23), skin tear from getting a CT scan 03/03/23 as per patient, asthma, nephrolithiasis, UTI's, LE cellulitis, PAD seen by Dr.
Helms, DVT R femoral vein 01/2022, venous stasis, back pain.L leg trauma wound I&D vac unit applied 07/23/23.
Wound Location and type/assessment: Patient known to service last seen 04/02/23. Most recently has been going to [facility] for L lateral leg trauma wound, banged leg on w/c. Spoke with Dr. Roberts who confirmed can remove Medela wound vac and apply
saline WTD dressing, marcus wraps for compression. legs with Chronic lymphedema/ bruising and chronic scattered hyperkeratotic raised areas of skin. RLE venous Doppler negative for DVT. Arterial Doppler done last admission, R toe pressure .44, L toe
pressure .67. L sacrum with healed PI, now pink and intact.
Asked patient to have daughter take home vac unit home when visits today.
Appetite: poor. Ate 25% of breakfast today.
Pressure redistribution devices in place: [employer] Accumax. Patient turns to side with minimal assistance. She is able to lift heels off bed, needs assist with lifting R leg. Pillow placed under calves.
Plan: LLE dressing changed. Silicone border foam change on sacrum. Heels off bed with pillow. Instructed patient importance of eating for wound healing and pressure injury prevention measures. Patient stated she wears knee high Marcus wraps at home.
B/L Marcus wraps applied and tolerating.
Will confirm orders with hospitalist and discussed with RIO Carreno.
Care plan to be updated and will follow as needed. Patient to follow up with [facility] as scheduled.
--- NOTE | 2023-07-30 14:05 | VNURNOTE ---
Patient is current with [facility] since 06/26 w/SN, will monitor progress and plan at discharge.
--- NOTE | 2023-07-30 14:22 | W.PN.ID1 ---
Date of Service
Date of Service: July 30, 2023
Today's Communication
follow clinically on cefazolin another day
Assessment / Plan
RIGHT Lower Extremity Nonpurulent Cellulitis
Chronic Wound of the Left lower extremity with wound vac
SCC of the L lower extremity
Leukocytosis on steroids
On chronic steroids outpatient
- much less erythema of the RLE but still markedly tender which is different from her baseline - continue IV therapy at this time
- blood cultures x2 no growth to date
- continue cefazolin another day
- elevate at tolerated, continue compression
- follow clinically
Chief Complaint
-: Cellulitis
Subjective / Review of Systems
today is patients birthday
afebrile
bp stable
much less erythema of the RLE but still markedly tender which is different from her baseline
stable leukocytosis, cr stable, blood cultures no growth
Vital Signs / Physical Exam
Vital Signs
Vital Signs
Temp Pulse Resp BP Pulse Ox
97.9 F 74 16 139/51 95
07/30/23 07:46 07/30/23 07:58 07/30/23 07:58 07/30/23 07:46 07/30/23 07:58
Physical Exam
Constitutional: No Acute Distress
Cardiovascular: Regular Rate and S1/S2; Negative Murmur or Rub
Pulmonary: Clear and Symmetric; Negative Wheezes or Rales
Gastrointestinal: Soft, Non Tender, Non Distended and Normal Bowel Sounds
Extremities: Other (minimal erythema of the RLE, still markedly tender, no purulence)
Skin: Warm and Dry; Negative Rash or Jaundice
Objective Data
Lab Data
Lab Results
07/30/23 05:29
07/30/23 05:29
Estimated Creat Clear 37 ml/min 07/30/23 05:29
Total Bilirubin 0.6 mg/dl (0.2-1.3) 07/28/23 02:52
AST 29 U/L (14-36) 07/28/23 02:52
ALT 20 U/L (0-35) 07/28/23 02:52
Alkaline Phosphatase 70 U/L (38-126) 07/28/23 02:52
Most recent labs reviewed.
Micro Results:
07/28/23 12:27 Blood Culture - Preliminary
Blood/Venous No Growth in 48 hours- Final report to follow
07/28/23 12:27 Blood Culture - Preliminary
Blood/Venous No Growth in 48 hours- Final report to follow
[2023-07-30 15:39] VITALS: BP 136/59
[2023-07-30 16:35] VITALS: BP 136/59; PULSE 71; O2SAT 95
[2023-07-30 16:46] LABS: Urine Albumin Trace (Neg - Trace); Urine Bilirubin Negative (Negative); Urine Character Clear (Clear); Urine Color Yellow; Urine Glucose Negative (Negative); Urine Ketone Negative (Negative); Urine Leukocyte Trace (Negative); Urine Nitrite Negative (Negative); Urine Occult Blood Negative (Negative); Urine Urobilinogen Negative (Neg - 1+)
[2023-07-30 17:01] LABS: Urine Red Blood Cell None Seen /HPF (0-2); Urine Squamous Cell >30 /LPF (Few)
[2023-07-30 17:02] LABS: Urine Yeast Few (Negative)
[2023-07-30] MEDS: DULCOLAX 10 MG PO (18:16)
[2023-07-30 23:00] VITALS: BP 132/50
[2023-07-30] MEDS: FLUSH (NSS) 2 FLUSH IV (23:05)
[2023-07-31 06:00] VITALS: BMI 25.7
[2023-07-31 07:00] VITALS: BP 148/59
[2023-07-31] MEDS: ADVAIR HFA 230/21 MCG INHALER 2 PUFF INH ×2 (07:46→19:19)
[2023-07-31] MEDS: MEDROL 4 MG PO (07:50)
[2023-07-31] MEDS: SENOKOT-S 1 TABLET PO ×2 (07:50→21:28)
[2023-07-31] MEDS: THERAGRAN 1 TABLET PO (07:50)
[2023-07-31] MEDS: ANCEF 10 IV ×2 (07:50→16:40)
[2023-07-31] MEDS: COREG 12.5 MG PO ×2 (07:52→21:28)
--- NOTE | 2023-07-31 12:31 | W.PN.HOSP.TC ---
Today's Communication/Plan
-
see A/P
Assessment / Plan
Assessment / Plan
82y F with PMH significant for PAD, chronic LE skin changes / cellulitis, prior DVT and squamous cell skin cancer who presented to ED complaining of back pain and hip pain.�Patient stated that she had some lower back discomfort when going to
bed.� She slept poorly and noted worsening low back and bilateral hip pain overnight.�Early in the morning, she called her daughter for assistance and noted that she was unable to get out of bed due to her pain.�Patient denies any N/V, chills,
diaphoresis, etc.� She denies any recent injury, fall or trauma.
[facility] is [facility] and on 07/27 she underwent debridement and wound vac change to the LLE.� Wound Vac has been in place overall since June.
Patient presented to the ED with concern that she might have a kidney stone.� She has had these in the past and symptoms seemed similar.�
CT scan in the ED revealed no ureteral / obstructing stones.
Patient was noted to have redness and swelling of the RLE > LLE in the ED and was referred for admission for recurrent RLE cellulitis.
US done in the ED was negative for DVT.
A/P:
# Back Pain- resolved
# RLE cellulitis
Back pain has resolved. Consider spine imaging if back pain recurs.
Increased swelling, pain and redness in the RLE per patient.�Recent incidental skin puncture / laceration (with her fingernail) may be source.
ID on board, started cefazolin, off vancomycin
Wound Care on board for RLE as well as chronic LLE wound vac management.
Follow for clinical improvement.
PT / OT recc SNF. Pt declined SNF.
# ASCVD / PAD
Established LE PAD.�Non-invasive studies done during prior admission (04/2023).
Follow-up with Vascular Surgery as an outpatient.
# Benign Hypertension- Stable.�
Continue outpatient Coreg
resumed [employer] Benicar
DCed Norvasc due to leg swelling
monitor BP and consider adding an additional agent if BP starts to increase
# Possible Adrenal Insufficiency
Continue chronic methylprednisolone with no changes.
# Asthma without Acute Exacerbation- Stable.�
Follow for any new dyspna, wheezing, etc.
Albuterol PRN.
# History of DVT
US on admission negative for DVT
# Hypokalemia
Repleted K
DVT Prophylaxis: Lovenox SQ
Code Status:�Full
updated daughter on the phone.
Anticipated Discharge: Within 24 hours
Subjective/Interval History
-
Date of Service: July 31, 2023
Objective Data
-
Vital Signs:
Vital Signs
Temp Pulse Resp BP Pulse Ox
36.9 C 68 16 148/59 95
07/31/23 07:00 07/31/23 07:52 07/31/23 07:50 07/31/23 07:52 07/31/23 07:50
I&O
07/30/23 07/31/23 08/01/23
06:59 06:59 06:59
Intake Total 2400 / 2400 1320 / 1320
Output Total 350 / 350
Balance 2049 1320 / 1320
Review of Systems
-
All other systems: Reviewed and negative
Physical Exam
-
General: Well Developed, Well Nourished, Comfortable and Appears Chronically Ill
HEENT: Normocephalic
Respiratory: Clear to Auscultation and Non Labored Respirations; Negative Accessory Resp Muscle Use
Cardiac: Regular Rhythm and S1/S2
GI: Soft and Nontender
Skin: Other (left leg wound vac removed )
Neuro: Awake and Alert
Psych: Calm and Intact Judgement/Insight
Data Reviewed
-
Ultrasound: Report Reviewed by me
Labs: Labs Reviewed by me
[2023-07-31] MEDS: BENICAR 40 MG PO (12:51)
[2023-07-31] MEDS: ORETIC 25 MG PO (12:52)
--- NOTE | 2023-07-31 14:37 | PN.CDI ---
CDI
- -
CDI:
Physician Documentation Request
Admit Date: 07/28/23 07:08
Dear Doctor Nick,
Please review the following and provide your response in the progress notes.
Clinical Indicators:
Pt admitted with RLE cellulitis on cefazolin per ID
On admit Tmax 100.5, HR 93, RR 27, WBC 12.1
WBC 07/29 & 07/30,' WBC 18.7
Please clarify which of the following most accurately describes the status of the patient's infection:
Sepsis-POA
- Systemic manifestations of infection, with 2 or more SIRS criteria which include:
- Fever >100.4 degrees F or hypothermia < 96.8 degrees F
- Leukocytosis - WBC > 12,000 or leukopenia - WBC < 4,000 or > 10% bands
- Tachycardia > 90 beats per minute
- Tachypnea - RR > 20 breaths per minute or PaCO2 , 32mmHg
Source: Merck Manual 2013
RLE cellulitis , Without Systemic Illness
Other
Use of terms such as suspected, likely, concern for, or probable (associated with a specific diagnosis that is being evaluated, monitored, or treated as if it exists) are acceptable and can be coded in the inpatient setting, when documented at the
time of discharge.
Thank you,
Margarita Marcos RN
CDI Specialist
[facility]
Please use your independent medical judgment in providing your response.
[2023-07-31 15:00] VITALS: BP 135/57
--- NOTE | 2023-07-31 15:26 | W.PN.ID1 ---
Date of Service
Date of Service: July 31, 2023
Today's Communication
continue cefazolin today, switch to keflex in the AM to complete 7 more days of keflex
Assessment / Plan
RIGHT Lower Extremity Nonpurulent Cellulitis
Chronic Wound of the Left lower extremity with wound vac
SCC of the L lower extremity
Leukocytosis on steroids
On chronic steroids outpatient
- continue cefazolin today, switch to keflex in the AM to complete 7 more days of keflex
- elevate at tolerated, continue compression PRN
- follow up with PCP
Chief Complaint
-: Cellulitis
Subjective / Review of Systems
afebrile
bp stable
UA with minimal pyuria
much less erythema and tenderness
edema persists
Vital Signs / Physical Exam
Vital Signs
Vital Signs
Temp Pulse Resp BP Pulse Ox
98.4 F 70 16 128/51 95
07/31/23 07:00 07/31/23 12:52 07/31/23 07:50 07/31/23 12:52 07/31/23 07:50
Physical Exam
Constitutional: No Acute Distress
Cardiovascular: Regular Rate and S1/S2; Negative Murmur or Rub
Pulmonary: Clear and Symmetric; Negative Wheezes or Rales
Gastrointestinal: Soft, Non Tender, Non Distended and Normal Bowel Sounds
Skin: Warm, Dry and Rash (much less tenderness and erythema); Negative Jaundice
Objective Data
Lab Data
Lab Results
07/30/23 05:29
07/30/23 05:29
Estimated Creat Clear 37 ml/min 07/30/23 05:29
Total Bilirubin 0.6 mg/dl (0.2-1.3) 07/28/23 02:52
AST 29 U/L (14-36) 07/28/23 02:52
ALT 20 U/L (0-35) 07/28/23 02:52
Alkaline Phosphatase 70 U/L (38-126) 07/28/23 02:52
Most recent labs reviewed.
Micro Results:
07/28/23 12:27 Blood Culture - Preliminary
Blood/Venous No Growth in 72 hours- Final report to follow
07/28/23 12:27 Blood Culture - Preliminary
Blood/Venous No Growth in 72 hours- Final report to follow
--- NOTE | 2023-07-31 15:56 | CM ---
manager laundry reviewed patient's chart and physical therapy are recommending skilled placement however patient wants home with [facility], [facility] liaison contacted.
Plan; Home when stable, with [facility].
[2023-07-31 23:40] VITALS: BP 148/61
[2023-08-01 06:00] VITALS: BMI 25.1
[2023-08-01 06:16] LABS: Hematocrit 32.2 % (37.0-47.0); Hemoglobin 10.5 g/dL (12.0-16.0); Mean Corp Hgb Conc. 32.6 g/dL (33.0-37.0); Mean Corpuscular Hgb 28.7 pg (27.0-31.0); Mean Platelet Volume 9.6 fL (7.4-10.4); Platelet Count 260 10^3/uL (130-400); Red Blood Cell Count 3.66 10^6/uL (4.20-5.40); Red Cell Dist. Width 14.8 % (11.5-14.5); White Blood Cell Count 10.7 10^3/uL (4.8-10.8)
[2023-08-01 06:38] LABS: Blood Urea Nitrogen 27 mg/dl (7-17); Calcium 8.5 mg/dl (8.4-10.2); Carbon Dioxide 30 mmol/L (22-30); Chloride 104 mmol/L (98-107); Estimated Creatinine Clearance 48 ml/min; Glucose 77 mg/dl (70-99); Potassium 4.1 mmol/L (3.5-5.1); Sodium 136 mmol/L (135-145); eGFR > 60.00
[2023-08-01 07:00] VITALS: BP 149/64
[2023-08-01] MEDS: SENOKOT-S 1 TABLET PO (07:44)
[2023-08-01] MEDS: THERAGRAN 1 TABLET PO (07:44)
[2023-08-01] MEDS: COREG 12.5 MG PO (07:45)
[2023-08-01] MEDS: KEFLEX 500 MG PO ×2 (07:45→12:08)
[2023-08-01] MEDS: ORETIC 25 MG PO (07:45)
[2023-08-01] MEDS: MEDROL 4 MG PO (07:45)
[2023-08-01] MEDS: BENICAR 40 MG PO (07:45)
[2023-08-01] MEDS: ADVAIR HFA 230/21 MCG INHALER 2 PUFF INH (08:05)
--- NOTE | 2023-08-01 10:47 | W.PN.HOSP.TC ---
Addendum entered and electronically signed by Tara Romero MD 08/06/23 14:25:
# Sepsis-POA
Original Note:
Today's Communication/Plan
-
Monitor vitals
See plan
Discharge today on p.o. Keflex
Patient refusing SNF
Time of discharge 36 minutes
Assessment / Plan
Assessment / Plan
82y F with PMH significant for PAD, chronic LE skin changes / cellulitis, prior DVT and squamous cell skin cancer who presented to ED complaining of back pain and hip pain.�Patient stated that she had some lower back discomfort when going to
bed.� She slept poorly and noted worsening low back and bilateral hip pain overnight.�Early in the morning, she called her daughter for assistance and noted that she was unable to get out of bed due to her pain.�Patient denies any N/V, chills,
diaphoresis, etc.� She denies any recent injury, fall or trauma.
Patient is followed by [facility] and on 07/27 she underwent debridement and wound vac change to the LLE.� Wound Vac has been in place overall since June.
Patient presented to the ED with concern that she might have a kidney stone.� She has had these in the past and symptoms seemed similar.�
CT scan in the ED revealed no ureteral / obstructing stones.
Patient was noted to have redness and swelling of the RLE > LLE in the ED and was referred for admission for recurrent RLE cellulitis.
US done in the ED was negative for DVT.
A/P:
# Back Pain- resolved
# RLE cellulitis
Back pain has resolved. Consider spine imaging if back pain recurs.
Increased swelling, pain and redness in the RLE per patient.�Recent incidental skin puncture / laceration (with her fingernail) may be source.
ID on board, now on p.o. Keflex
Wound Care on board for RLE as well as chronic LLE wound vac management.
Follow for clinical improvement.
PT / OT recc SNF. Pt declined SNF.
# ASCVD / PAD
Established LE PAD.�Non-invasive studies done during prior admission (04/2023).
Follow-up with Vascular Surgery as an outpatient.
# Benign Hypertension- Stable.�
Continue outpatient Coreg
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
DCed Norvasc due to leg swelling
monitor BP and consider adding an additional agent if BP starts to increase
# Possible Adrenal Insufficiency
Continue chronic methylprednisolone with no changes.
# Asthma without Acute Exacerbation- Stable.�
Follow for any new dyspna, wheezing, etc.
Albuterol PRN.
# History of DVT
US on admission negative for DVT
# Hypokalemia
Repleted K
DVT Prophylaxis: Lovenox SQ
Code Status:�Full
updated daughter on the phone.
General: Well Developed, Well Nourished
HEENT: Normocephalic
Respiratory: Clear to Auscultation and Non Labored Respirations
Cardiac: Regular Rhythm and S1/S2
GI: Soft and Nontender
Skin: Other (left leg wound vac removed )
Neuro: Awake and Alert
Psych: Calm and Intact Judgement/Insight
Anticipated Discharge: Today
Subjective/Interval History
-
Date of Service: August 01, 2023
Denies pain
Objective Data
-
Labs:
Laboratory Results
08/01/23
05:34
WBC 10.7
Hgb 10.5 L
Hct 32.2 L
Plt Count 260 D
Sodium 136
Potassium 4.1
Chloride 104
Carbon Dioxide 30
BUN 27 H
Creatinine 0.7
Glucose 77
Calcium 8.5
Vital Signs:
Vital Signs
Temp Pulse Resp BP Pulse Ox
98.6 F 71 18 149/64 95
08/01/23 07:00 08/01/23 08:06 08/01/23 08:06 08/01/23 07:45 08/01/23 08:06
I&O
07/31/23 08/01/23 08/02/23
06:59 06:59 06:59
Intake Total 1320 / 1320 960 / 960
Balance 1320 / 1320 960 / 960
--- NOTE | 2023-08-01 10:51 | W.DCSUMMARY ---
Discharge Summary
Discharge Data
Date of Admission: 07/28/23
Date of Discharge: 08/01/23
-
Pending Results: No
Hospital Course
82-year-old female with past medical history of PAD, chronic lower extremity skin changes/cellulitis, prior DVT, squamous cell skin cancer, hypertension, possible adrenal insufficiency came to the hospital with back pain and hip pain. Over time
patient pain improved on its own. Patient was also seen at wound care center on 07/27 and she underwent debridement and wound VAC change on left lower extremity. Given patient lower extremity redness and swelling patient was admitted for
cellulitis. Ultrasound was done which was negative for DVT. Patient was seen by infectious disease throughout hospitalization and was initially on IV antibiotics which were later transitioned to oral antibiotics prior to the discharge. Patient
was also seen by physical therapy who recommended SNF however patient declined SNF. On this hospitalization patient Norvasc was stopped due to lower extremity swelling. Once patient symptoms improved, she was then discharged home with instructions
to follow-up with all her physicians outpatient.
Discharge Plan
-
Patient Disposition: Home with Home Care
Discharge Diagnosis/Procedures: Cellulitis
Essential hypertension
Diet: As tolerated
Activity: With assistance and As tolerated
Driving Restrictions: Not until seen by your Dr
Bathing Restrictions: None
Stop these medications:: Amlodipine
Activity Restrictions/Additional Instructions:
Wound Care Instructions
L lateral leg: clean with saline, skin prep periwound, saline moistened 2x2 gauze packing, leave tail end out, cover with silicone foam or dry dressing, change daily and prn drainage.
Marcus wraps to both legs as tolerated, can remove at bedtime
leg elevation when sitting
Follow up at wound care center call for an appointment.
Referrals:
Roberto Carlos Almanza, [Family Provider] - in less than 1 week
Randee Lemon MD [Active] -
Prescriptions:
New
sennosides-docusate sodium [Stool Softener-Stimulant Laxat] 8.6-50 mg Tablet
1 tab PO BID Qty: 60 0RF
cephalexin 500 mg Capsule
500 mg PO QID 7 Days Qty: 28 0RF
Continued
methylprednisolone 4 MG tablet
4 mg PO DAILY
cranberry extract [Ellura] 200 mg Capsule
36 mg PO DAILY Qty: 0
carvedilol 12.5 MG tablet
12.5 mg PO BID
albuterol sulfate 2.5 mg /3 mL (0.083 %) Solution For Nebulization
2.5 mg INHALATION R Q4HPRN PRN (Reason: sob)
therapeutic multivitamin Tablet
1 tab PO DAILY
olmesartan-hydrochlorothiazide [Benicar HCT] 40-25 mg Tablet
1 tab PO DAILY
fluticasone propion-salmeterol [Wixela Inhub] 500-50 mcg/dose Blister With Device
1 inh INHALATION R BID
acetaminophen [Tylenol] 325 mg Tablet
650 mg PO Q4HPRN PRN (Reason: mild pain)
garlic 300 mg Capsule
300 mg PO DAILY
Discontinued
amlodipine 5 mg tablet
5 mg PO DAILY Qty: 30 0RF
Discharge Orders:
Discharge Patient (As Directed); Ordered 08/01/23
Ordered By: Chalo mEerson
--- NOTE | 2023-08-01 12:12 | CM ---
Chart reviewed and patient to return to home home today, daughter to transport.
Plan; Home with daughter and [facility].
--- NOTE | 2023-08-01 13:05 | W.PN.ID1 ---
Date of Service
Date of Service: August 01, 2023
Today's Communication
- continue keflex in the AM to complete 7 more days
Assessment / Plan
RIGHT Lower Extremity Nonpurulent Cellulitis
Chronic Wound of the Left lower extremity with wound vac
SCC of the L lower extremity
Leukocytosis on steroids
On chronic steroids outpatient
- continue keflex in the AM to complete 7 more days
- elevate at tolerated, continue compression PRN
- follow up with PCP
Chief Complaint
-: Cellulitis
Subjective / Review of Systems
afebrile
bp stable
resolved leukocytosis
cr stable
blood cultures no growth to date
complaining of urinary frequency - had negative ua yesterday, no suprapubic tenderness; for bladder scan
Vital Signs / Physical Exam
Vital Signs
Vital Signs
Temp Pulse Resp BP Pulse Ox
98.6 F 71 18 149/64 95
08/01/23 07:00 08/01/23 08:06 08/01/23 08:06 08/01/23 07:45 08/01/23 08:06
Physical Exam
Constitutional: No Acute Distress
Cardiovascular: Regular Rate and S1/S2; Negative Murmur or Rub
Pulmonary: Clear and Symmetric; Negative Wheezes or Rales
Gastrointestinal: Soft, Non Tender, Non Distended and Normal Bowel Sounds
Genito-Urinary: Negative Suprapubic Tenderness
Skin: Warm and Dry; Negative Rash or Jaundice
Objective Data
Lab Data
Lab Results
08/01/23 05:34
08/01/23 05:34
Estimated Creat Clear 48 ml/min 08/01/23 05:34
Total Bilirubin 0.6 mg/dl (0.2-1.3) 07/28/23 02:52
AST 29 U/L (14-36) 07/28/23 02:52
ALT 20 U/L (0-35) 07/28/23 02:52
Alkaline Phosphatase 70 U/L (38-126) 07/28/23 02:52
Most recent labs reviewed.
Micro Results:
07/28/23 12:27 Blood Culture - Preliminary
Blood/Venous No Growth in 4 days- Final report to follow
07/28/23 12:27 Blood Culture - Preliminary
Blood/Venous No Growth in 4 days- Final report to follow
--- NOTE | 2023-08-01 16:05 | VNURNOTE ---
[facility] resumption of care completed in [facility] after review of chart and discussion with patient. Patient confirmed having [facility] contact number.
== END 2023-08-01 15:54 | disposition home health service (06) | DRG 872 ==
LOC: 3 WEST ACU 07:08
PROVIDERS: Emergency Medicine; Internal Medicine; ADMITTING PHYSICIAN Hospitalist; ATTENDING PHYSICIAN Internal Medicine; CONSULT PHYSICIAN Student in an Organized Health Care Education/Training Program; EMERGENCY PHYSICIAN Student in an Organized Health Care Education/Training Program; FAMILY PHYSICIAN Family Medicine
DX: A41.9 Sepsis, unspecified organism (principal); L03.115 Cellulitis of right lower limb; D84.9 Immunodeficiency, unspecified; E27.40 Unspecified adrenocortical insufficiency; L97.929 Non-pressure chronic ulcer of unspecified part of left lower leg with unspecified severity; I73.9 Peripheral vascular disease, unspecified; M54.9 Dorsalgia, unspecified; I10 Essential (primary) hypertension; F17.200 Nicotine dependence, unspecified, uncomplicated; C44.92 Squamous cell carcinoma of skin, unspecified; M25.551 Pain in right hip; M25.552 Pain in left hip; K21.9 Gastro-esophageal reflux disease without esophagitis; I25.10 Atherosclerotic heart disease of native coronary artery without angina pectoris; E87.6 Hypokalemia; R35.0 Frequency of micturition; E78.00 Pure hypercholesterolemia, unspecified; J45.909 Unspecified asthma, uncomplicated; Z86.718 Personal history of other venous thrombosis and embolism; Z87.442 Personal history of urinary calculi; Z87.440 Personal history of urinary (tract) infections; Z79.51 Long term (current) use of inhaled steroids; Z88.1 Allergy status to other antibiotic agents; Z88.5 Allergy status to narcotic agent; Z88.2 Allergy status to sulfonamides; Z79.52 Long term (current) use of systemic steroids
CPT/HCPCS: 74176; 80048; 80053; 81003; 81015; 83735; 84443; 85025; 85027; 87040; 93971; 94640; 96365; 96375; 97162; 97167; 97530; 99285

== ENCOUNTER → 2023-08-10 11:11 | Outpatient (REF) | payer OTHER, SELFPAY | LOC: WOUND 11:11 | PROVIDERS: ATTENDING PHYSICIAN Surgery; FAMILY PHYSICIAN Family Medicine | DX: S81.812A Laceration without foreign body, left lower leg, initial encounter (principal); L97.822 Non-pressure chronic ulcer of other part of left lower leg with fat layer exposed; J45.40 Moderate persistent asthma, uncomplicated; N13.2 Hydronephrosis with renal and ureteral calculous obstruction; W22.8XXA Striking against or struck by other objects, initial encounter; Z79.52 Long term (current) use of systemic steroids | CPT/HCPCS: 11042 ==

== ENCOUNTER → 2023-08-16 11:27 | Outpatient (REF) | payer OTHER, SELFPAY | LOC: WOUND 11:27 | PROVIDERS: ATTENDING PHYSICIAN Surgery; FAMILY PHYSICIAN Family Medicine | DX: L97.822 Non-pressure chronic ulcer of other part of left lower leg with fat layer exposed (principal); S81.812A Laceration without foreign body, left lower leg, initial encounter; Z79.52 Long term (current) use of systemic steroids; J45.40 Moderate persistent asthma, uncomplicated; N13.2 Hydronephrosis with renal and ureteral calculous obstruction; W22.8XXA Striking against or struck by other objects, initial encounter | CPT/HCPCS: 11042 ==

== ENCOUNTER → 2023-08-30 14:29 | Outpatient (REF) | payer OTHER, SELFPAY | LOC: WOUND 14:29 | PROVIDERS: ATTENDING PHYSICIAN Surgery; FAMILY PHYSICIAN Family Medicine | DX: S81.812A Laceration without foreign body, left lower leg, initial encounter (principal); L97.822 Non-pressure chronic ulcer of other part of left lower leg with fat layer exposed; N13.2 Hydronephrosis with renal and ureteral calculous obstruction; J45.40 Moderate persistent asthma, uncomplicated; Z79.52 Long term (current) use of systemic steroids; W22.8XXA Striking against or struck by other objects, initial encounter | CPT/HCPCS: 11042 ==

== ENCOUNTER → 2023-10-16 12:42 | Outpatient (REF) | payer OTHER, SELFPAY | LOC: RAD 12:42 | PROVIDERS: ATTENDING PHYSICIAN Physician Assistant; FAMILY PHYSICIAN Family Medicine | DX: I73.9 Peripheral vascular disease, unspecified (principal) | CPT/HCPCS: 93922; 93925 ==

== ENCOUNTER 2024-02-12 18:11 | Emergency (ER) | payer OTHER, SELFPAY ==
[2024-02-12 19:29] VITALS: BP 188/52
[2024-02-12 20:00] VITALS: BP 182/58
[2024-02-12 21:00] VITALS: BP 152/40
--- NOTE | 2024-02-12 21:29 | ED.MUSCINJ ---
HPI-Injury
General
Chief Complaint: Musculo-Skeletal Complaint
Source: patient and family
Exam Limitations: none
Time Seen by Provider: 02/12/24 19:28
Nursing documentation reviewed up to this point in time: agreed with
History of Present Illness-Injury
Is this injury a work related problem?: No
Is pt an associate of [facility]/[place]?: No
Initial Injury comments:
Patient was walking up steps and hear a loud pop from left knee. Now with pain, unable to ambulate due to pain. Brought to ED by daughter for eval.
Past History
Past History
ED Past Medical History: Asthma, Cancer (Squamous cell CA), HTN, Hypercholesterolemia, Other (Kidney stones, recurrent UTI, Cellulitis, DVT) and Other (kidney stone)
ED Past Surgical History: Tonsilectomy, Urological (Renal stent) and Other (Sinus surgery)
Social History
Tobacco: Smoker
Alcohol: None
Personal:
Living: with family
Family History
Family History: Other (Noncontributory)
Review of Systems
Review of Systems
Allergies reviewed?: Yes
All Other Systems: ROS reviewed and negative except as documented in HPI and ROS
Constitutional: Reports no symptoms
Musculoskeletal: Reports joint pain (left knee pain)
Skin: Reports no symptoms
Neurological: Reports no symptoms
Psychiatric: Reports no symptoms
Musculoskeletal Injury Exam
Musculoskeletal Injury Exam
Left Knee:
Pain with Movement?: Moderate
Tender to palpation?: None
Soft tissue swelling?: None
External deformity and angulation?: None
Joint effusion?: None
Contusion?: None
Hematoma-local bleeding into tissue?: None
Strain- Sprain- Tear (Connective tissue injury)?: Moderate
Crepitus with movement?: No
Joint instability?: No
Malalignment/deformity?: No
Range of motion: Limited
Distal skin color and temperature: normal-warm & good color
Capillary Refill: normal
Normal distal neurovascular exam?: Yes
Peripheral Pulses: posterior tibial (left): 3+ and dorsalis pedis (left): 3+
Phy Exam
General Physical Exam
General Presentation: moderate distress
General age: appears stated age
General Skin: warm and dry
General Habitus: normal
General Mental: alert
General Hydration: appears well hydrated
Musculoskeletal Exam
Musculoskeletal Exam: neuro vasc intact
Skin Exam
Skin Exam: normal color, warm/dry and no rash
Psychiatric Exam
Psychiatric Exam: normal mood/affect
Injury Course
Orders/Labs/Results
Orders:
Orders
02/12/24 20:02
Knee, Left 4 or More Views [CR Knee - Left 4 Or More View*] Urgent
Comment:
Reason For Exam: pain
02/12/24 21:43
Knee Immobilizer Left-Treatmen ONCE
02/12/24 21:44
Tramadol HCl [Ultram] 25 mg PO NOW STA
*Radiology
Radiology exam reviewed: radiology read reviewed
*Pulse Oximetry
Patient hypoxic: no
*Critical Care Note
Total Time (30-74mins, 75-104mins- exclusive of procedures): Not Applicable
ED Attending Note
-
Portions of this chart may have been created with voice recognition software.� Occasional wrong word or��sound alike� substitutions may have occurred due to the inherent limitations of voice recognition software.
Discharge Plan
Departure
Patient Disposition: Home (Routine Discharge)
Date of Disposition: 02/12/24
Time of Disposition: 21:45
Patient with high blood pressure during this ER visit?: No
Condition: Good
Covid-19: Not Applicable
Discharge Problem:
Knee sprain
Instructions: Knee Immobilizer (DC), Knee Sprain (DC), Using Cold for Pain
Prescriptions:
New
tramadol 25 mg tablet
25 mg PO Q6H PRN (Reason: Pain) Qty: 10 0RF
No Action
methylprednisolone 4 MG tablet
4 mg PO DAILY
cranberry extract [Ellura] 200 mg Capsule
36 mg PO DAILY Qty: 0
carvedilol 12.5 MG tablet
12.5 mg PO BID
albuterol sulfate 2.5 mg /3 mL (0.083 %) Solution For Nebulization
2.5 mg INHALATION R Q4HPRN PRN (Reason: sob)
therapeutic multivitamin Tablet
1 tab PO DAILY
olmesartan-hydrochlorothiazide [Benicar HCT] 40-25 mg Tablet
1 tab PO DAILY
fluticasone propion-salmeterol [Wixela Inhub] 500-50 mcg/dose Blister With Device
1 inh INHALATION R BID
acetaminophen [Tylenol] 325 mg Tablet
650 mg PO Q4HPRN PRN (Reason: mild pain)
garlic 300 mg Capsule
300 mg PO DAILY
sennosides-docusate sodium [Stool Softener-Stimulant Laxat] 8.6-50 mg Tablet
1 tab PO BID Qty: 60 0RF
cephalexin 500 mg Capsule
500 mg PO QID 7 Days Qty: 28 0RF
Referrals:
Justin Rudolph MD [Active] - Call in 1-3 days for appt
Roberto Carlos Almanza DO [Family Provider] -
Interventions
Interventions:
*Risk Screen - Suicide Last Done: 02/12/24 19:31
*General Assessment Last Done: 02/12/24 19:31
*Neglect/Abuse Screening Last Done: 02/12/24 19:31
ED- Fall Risk Assessment Last Done: 02/12/24 19:30
*ED COVID-19 Vaccine History Last Done: 02/12/24 19:31
*Nursing Disposition Last Done: 02/12/24 22:38
ED-Musculoskeletal Assessment Last Done: 02/12/24 19:30
Discharge Date and Time
Discharge Date/Time: 02/12/24 22:35
Print Language: TELUGU
[2024-02-12 21:47] VITALS: BP 165/51
[2024-02-12] MEDS: ULTRAM 25 MG PO (21:50)
== END 2024-02-12 22:35 | disposition home or self-care (01) ==
LOC: EMR 18:11
PROVIDERS: EMERGENCY PHYSICIAN Emergency Medicine; FAMILY PHYSICIAN Family Medicine
DX: S83.92XA Sprain of unspecified site of left knee, initial encounter (principal); X50.1XXA Overexertion from prolonged static or awkward postures, initial encounter
CPT/HCPCS: 99283; 29505; 73564; 99284

== ENCOUNTER 2024-03-02 02:53 | Inpatient (IN) | payer OTHER, SELFPAY ==
[2024-03-02] VITALS (21 sets, daily range): BP systolic 113–203; BP diastolic 37–69; BMI 24.3; BMI 24.6
[2024-03-02 01:04] LABS: % Basophils 0.3 % (0-2); % Eosinophils 0.1 % (0-6); % Immature Granulocytes 1.3 % (0-0.5); % Lymphocytes 9.8 % (20.5-51.1); % Monocytes 11.2 % (1.7-9.3); % Neutrophils 77.3 % (42.2-75.2); Absolute Basophils 0.1 10^3/uL (0-0.2); Absolute Immature Granulocytes 0.2 10^3/uL (0-0.05); Absolute Lymphocytes 1.7 10^3/uL (1.2-3.4); Absolute Neutrophils 13.7 10^3/uL (1.4-6.5); Hematocrit 37.7 % (37.0-47.0); Hemoglobin 12.6 g/dL (12.0-16.0); Mean Corp Hgb Conc. 33.4 g/dL (33.0-37.0); Mean Corpuscular Hgb 30.3 pg (27.0-31.0); Mean Corpuscular Volume 90.6 fL (81.0-99.0); Mean Platelet Volume 8.5 fL (7.4-10.4); Nucleated Red Blood Cells % 0 %; Platelet Count 246 10^3/uL (130-400); Red Blood Cell Count 4.16 10^6/uL (4.20-5.40); Red Cell Dist. Width 15.5 % (11.5-14.5); White Blood Cell Count 17.7 10^3/uL (4.8-10.8)
[2024-03-02 01:19] LABS: Lactic Acid 1.5 mmol/L (0.7-2.0)
[2024-03-02 01:26] LABS: ALT (SGPT) 20 U/L (0-35); AST (SGOT) 24 U/L (14-36); Albumin 3.9 g/dl (3.5-5.0); Alkaline Phosphatase 62 U/L (38-126); Blood Urea Nitrogen 35 mg/dl (7-17); Carbon Dioxide 28 mmol/L (22-30); Chloride 103 mmol/L (98-107); Estimated Creatinine Clearance 39 ml/min; Glucose 117 mg/dl (70-99); Potassium 3.7 mmol/L (3.5-5.1); Sodium 144 mmol/L (135-145); Total Bilirubin 0.5 mg/dl (0.2-1.3); Total Protein 6.2 g/dl (6.3-8.2); eGFR > 60.00
--- NOTE | 2024-03-02 01:38 | ED.GENMED ---
History of Present Illness
<Mars Diaz MD, Resident - Last Filed: 03/02/24 02:52>
General
Chief Complaint: Skin Problem
Source: patient and family
Time Seen by Provider: 03/02/24 00:46
Travel History
Have you traveled to any high risk areas for coronavirus over the past 14 days?: No
Have you had any contact with someone who has COVID-19?: No
Do you have any symptoms of coronavirus? Fever > 100 degrees, chills, cough, shortness of breath, sore throat, loss of taste or smell, muscle aches, or headache?: No
History of Present Illness
History of Present Illness:
Jocelynn Teixeira, age 83, is here with fevers, chills and left knee abscess. She felt a 'pop' in her left knee earlier this month and had been in a brace since then. She noticed increased pain and noticed that she had developed a rash a few days ago,
which subsequently turned into an abscess. She has been experiencing restricted range of motion due to tenderness from the abscess. A few hours before coming to the emergency, the abscess 'popped open' and drained clear fluid at home, per the
patient. An I&D was performed in the ED with pus drainage sent for culture.
Past History
<Mars Diaz MD, Resident - Last Filed: 03/02/24 02:52>
Past History
ED Past Medical History: Asthma, Cancer (Squamous cell CA), HTN, Hypercholesterolemia, Other (Kidney stones, recurrent UTI, Cellulitis, DVT) and Other (kidney stone)
ED Past Surgical History: Tonsilectomy, Urological (Renal stent) and Other (Sinus surgery)
Social History
Tobacco: Smoker
Alcohol: None
Personal:
Living: with family
Family History
Family History: Other (Noncontributory)
Review of Systems
<Mars Diaz MD, Resident - Last Filed: 03/02/24 02:52>
Review of Systems
All Other Systems: Not applicable
Constitutional: Reports fever and chills
EENT: Reports no symptoms
Respiratory: Reports no symptoms
Cardiac: Reports no symptoms
ABD/GI: Reports no symptoms
: Reports no symptoms
Musculoskeletal: Reports joint pain and joint swelling
Skin: Reports no symptoms
Neurological: Reports no symptoms
Endocrine: Reports no symptoms
Hematologic/Lymphatic: Reports no symptoms
Psychiatric: Reports no symptoms
Phy Exam
<Mars Diaz MD, Resident - Last Filed: 03/02/24 02:52>
General Physical Exam
General Presentation: well appearing and no apparent distress
General Skin: warm and dry
General Habitus: normal
General Mental: alert
General Hydration: appears well hydrated
ENT Exam
ENT Exam: EOMI, pharynx normal, neck supple and normocephalic
Eye Exam
Eye Exam: PERRL, cornea clear and conjunctiva normal
Cardiovascular Exam
Cardiovascular Exam: regular rate/rhythm, no edema, no murmur and normal peripheral pulses
Pulmonary Exam
Pulmonary Exam: lungs clear, no respiratory distress, no rales, no crackles, no rhonchi, no stridor, no wheezing and no cough
Gastrointestinal Exam
Gastrointestinal Exam: normal bowel sounds, non tender, soft, no organomegaly, no pulsatile mass and non distended
Neurological Exam
Neurological Exam: alert, oriented x3, no motor deficits and speech normal
Musculoskeletal Exam
Musculoskeletal Exam: other (erythema, tenderness, swelling and warmth over the LEFT knee; restricted range of motion)
Skin Exam
Skin Exam: normal color, warm/dry, no rash and no petechia
Psychiatric Exam
Psychiatric Exam: normal mood/affect
Sepsis
<Mars Diaz MD, Resident - Last Filed: 03/02/24 02:52>
Sepsis Screening
Sepsis Assessment: Sepsis
Sepsis Screen
Sepsis Screen: Sepsis
Date: 03/02/24
Time: 02:52
Course
<Mars Diaz MD, Resident - Last Filed: 03/02/24 02:52>
Orders/Labs/Results
Orders:
Orders
03/02/24
Wound Culture [Wound/Abscess/Other Culture] Urgent
MELINDA Source: Abscess
Specimen Description:
Date Specimen was Collected: 03/02/24
Time Specimen was Collected: 01:58
Comment: LEFT knee abscess
03/02/24 00:52
Cardiac Monitoring- Treatment ONCE
IV Insert/Care/Rem.- Treatment PRN
O2 Therapy [RESP] Urgent
Titrate/Wean O2 to maintain O2 sat greater than (%): 93
Special Instructions: TO MAINTAIN CONTINUOUS O2 SATS > OR = 93%
Pulse Ox/cont/shift [RESP] Urgent
Quantity: 1
Special Instructions: CONTINUOUS
03/02/24 00:56
Complete Blood Count/With Diff Urgent
Comprehensive Metabolic Panel Urgent
Lactic Acid Q4H
Comment: ON ICE, CANCEL 2ND ORDER IF FIRST LACTIC ACID LEVEL <2
03/02/24 01:34
0.9% Sodium Chloride 1000 ml [Nss] 1,900 ml IV NOW STA
Acetaminophen [Tylenol] 650 mg PO NOW STA
Piperacillin/Tazo 4.5 Gram [Zosyn] 4.5 gram in 100 ml IV NOW
03/02/24 01:49
Vancomycin 1 Gram/200 ml [Vancocin] 1 gram in 200 ml IV NOW
03/02/24 01:51
Blood Culture Urgent
MELINDA Source: Blood/Venous
Specimen Description:
03/02/24 02:00
Labetalol HCl [Trandate] 10 mg IV NOW STA
03/02/24 02:20
Albuterol Nebs [Ventolin Nebules] 2.5 mg INH R Q4HPRN PRN
03/02/24 02:22
Admit/Transfer Patient As Directed
Co-Sign Provider:
Level of Care: Inpatient admission
Assign to:: Medical/Surgical
Physician / Group: hospitalist
Diagnosis: purulent cellulitis
Reason for Hospitalization: severe cellulitis
Expected length of stay greater than two midnights?: Yes
ELOS- Estimated Length of Stay in days: 2
I certify the patient meets the requirements for IP care: Yes
PRN Pain Medication Management As Directed
May give lesser potent ordered pain med per pt: Yes
preference::
Protocol:: Medication orders for pain may be administered in a
manner that supports deferring to patient preference
when the pt is:
- Requesting an ordered lesser potent pain medication.
Least to most potent pain medications are defined
as: acetaminophen < NSAID < tramadol < opioids
(morphine, oxycodone, hydromorphone).
- Requesting a lesser dose of the same medication IF
ORDERED.
- Requesting a less intrusive route of administration
if both routes are prescribed by the provider (PO <
IV).
03/02/24 02:23
Code Status As Directed
Resuscitation Status: Limited DNR
Limited DNR: -No CPR
03/02/24 03:00
Flush (0.9% Sodium Chloride) [Flush (Nss)] See Dose Instructions IV PER PROTOCOL
03/02/24 05:00
Lactic Acid Q4H
Comment: ON ICE, CANCEL 2ND ORDER IF FIRST LACTIC ACID LEVEL <2
03/02/24 08:00
Carvedilol [Coreg] 6.25 mg PO BID
Fluticasone/Salmeterol 230/21 [Advair Hfa 230/21 Mcg Inhaler] 2 puff INH R BID
Hydrochlorothiazide [Oretic] 25 mg PO DAILY
MethylPREDNISolone [Medrol] 4 mg PO DAILY
Olmesartan Medoxomil [Benicar] 40 mg PO DAILY
Abnormal Lab Results
03/02/24
00:56
WBC 17.7 H 10^3/uL
(4.8-10.8)
RBC 4.16 L 10^6/uL
(4.20-5.40)
RDW 15.5 H %
(11.5-14.5)
Abs Immat Gran (auto) 0.2 H 10^3/uL
(0-0.05)
Absolute Neuts (auto) 13.7 H 10^3/uL
(1.4-6.5)
Absolute Monos (auto) 2.0 H 10^3/uL
(0.1-0.6)
Immature Gran % 1.3 H %
(0-0.5)
Neutrophils % 77.3 H %
(42.2-75.2)
Lymphocytes % 9.8 L %
(20.5-51.1)
Monocytes % 11.2 H %
(1.7-9.3)
BUN 35 H mg/dl
(7-17)
Glucose 117 H mg/dl
(70-99)
Total Protein 6.2 L g/dl
(6.3-8.2)
03/02/24 00:56
03/02/24 00:56
Vital Signs
Initial and Last Documented VS:
Initial Vital Signs
Temp
100.5 F H
03/02/24 00:47
Last Documented Vital Signs
Temp Pulse Resp BP Pulse Ox
100.5 F H 75 24 142/50 92
03/02/24 00:47 03/02/24 02:45 03/02/24 02:45 03/02/24 02:20 03/02/24 02:45
<Jeff Alexander DO - Last Filed: 03/02/24 01:51>
Orders/Labs/Results
Orders:
Orders
03/02/24
Wound Culture [Wound/Abscess/Other Culture] Urgent
MELINDA Source: Abscess
Specimen Description:
Date Specimen was Collected: 03/02/24
Time Specimen was Collected: 01:58
Comment: LEFT knee abscess
03/02/24 00:52
Cardiac Monitoring- Treatment ONCE
IV Insert/Care/Rem.- Treatment PRN
O2 Therapy [RESP] Urgent
Titrate/Wean O2 to maintain O2 sat greater than (%): 93
Special Instructions: TO MAINTAIN CONTINUOUS O2 SATS > OR = 93%
Pulse Ox/cont/shift [RESP] Urgent
Quantity: 1
Special Instructions: CONTINUOUS
03/02/24 00:56
Complete Blood Count/With Diff Urgent
Comprehensive Metabolic Panel Urgent
Lactic Acid Q4H
Comment: ON ICE, CANCEL 2ND ORDER IF FIRST LACTIC ACID LEVEL <2
03/02/24 01:34
0.9% Sodium Chloride 1000 ml [Nss] 1,900 ml IV NOW STA
Acetaminophen [Tylenol] 650 mg PO NOW STA
Piperacillin/Tazo 4.5 Gram [Zosyn] 4.5 gram in 100 ml IV NOW
03/02/24 01:49
Vancomycin 1 Gram/200 ml [Vancocin] 1 gram in 200 ml IV NOW
03/02/24 01:51
Blood Culture Urgent
MELINDA Source: Blood/Venous
Specimen Description:
03/02/24 02:00
Labetalol HCl [Trandate] 10 mg IV NOW STA
03/02/24 02:20
Albuterol Nebs [Ventolin Nebules] 2.5 mg INH R Q4HPRN PRN
03/02/24 02:22
Admit/Transfer Patient As Directed
Co-Sign Provider:
Level of Care: Inpatient admission
Assign to:: Medical/Surgical
Physician / Group: hospitalist
Diagnosis: purulent cellulitis
Reason for Hospitalization: severe cellulitis
Expected length of stay greater than two midnights?: Yes
ELOS- Estimated Length of Stay in days: 2
I certify the patient meets the requirements for IP care: Yes
PRN Pain Medication Management As Directed
May give lesser potent ordered pain med per pt: Yes
preference::
Protocol:: Medication orders for pain may be administered in a
manner that supports deferring to patient preference
when the pt is:
- Requesting an ordered lesser potent pain medication.
Least to most potent pain medications are defined
as: acetaminophen < NSAID < tramadol < opioids
(morphine, oxycodone, hydromorphone).
- Requesting a lesser dose of the same medication IF
ORDERED.
- Requesting a less intrusive route of administration
if both routes are prescribed by the provider (PO <
IV).
03/02/24 02:23
Code Status As Directed
Resuscitation Status: Limited DNR
Limited DNR: -No CPR
03/02/24 03:00
Flush (0.9% Sodium Chloride) [Flush (Nss)] See Dose Instructions IV PER PROTOCOL
03/02/24 05:00
Lactic Acid Q4H
Comment: ON ICE, CANCEL 2ND ORDER IF FIRST LACTIC ACID LEVEL <2
03/02/24 08:00
Carvedilol [Coreg] 6.25 mg PO BID
Fluticasone/Salmeterol 230/21 [Advair Hfa 230/21 Mcg Inhaler] 2 puff INH R BID
Hydrochlorothiazide [Oretic] 25 mg PO DAILY
MethylPREDNISolone [Medrol] 4 mg PO DAILY
Olmesartan Medoxomil [Benicar] 40 mg PO DAILY
Abnormal Lab Results
03/02/24
00:56
WBC 17.7 H 10^3/uL
(4.8-10.8)
RBC 4.16 L 10^6/uL
(4.20-5.40)
RDW 15.5 H %
(11.5-14.5)
Abs Immat Gran (auto) 0.2 H 10^3/uL
(0-0.05)
Absolute Neuts (auto) 13.7 H 10^3/uL
(1.4-6.5)
Absolute Monos (auto) 2.0 H 10^3/uL
(0.1-0.6)
Immature Gran % 1.3 H %
(0-0.5)
Neutrophils % 77.3 H %
(42.2-75.2)
Lymphocytes % 9.8 L %
(20.5-51.1)
Monocytes % 11.2 H %
(1.7-9.3)
BUN 35 H mg/dl
(7-17)
Glucose 117 H mg/dl
(70-99)
Total Protein 6.2 L g/dl
(6.3-8.2)
03/02/24 00:56
03/02/24 00:56
Vital Signs
Initial and Last Documented VS:
Initial Vital Signs
Temp
100.5 F H
03/02/24 00:47
Last Documented Vital Signs
Temp Pulse Resp BP Pulse Ox
100.5 F H 75 24 142/50 92
03/02/24 00:47 03/02/24 02:45 03/02/24 02:45 03/02/24 02:20 03/02/24 02:45
Procedures
<Jeff Alexander DO - Last Filed: 03/02/24 01:51>
Incision/Drainage/Joint Aspiration
Right Anterior Knee:
Anethesia: 1% Lidocaine with Epi and Added Na bicarb to local
Preparation: cleaned with Betadine
Type of procedure: incise and drain
Nature of site: abscess
Description of abscess: less than 3cm
Loculations broken up: Yes
How much fluid was obtained?: small amount
Fluid description: purulent and blood tinged
Treatment: left open for drainage and antibiotics started
<Mras Diaz MD, Resident - Last Filed: 03/02/24 02:52>
*Critical Care Note
Total Time (30-74mins, 75-104mins- exclusive of procedures): Not Applicable
ED Attending Note
<Mars Diaz MD, Resident - Last Filed: 03/02/24 02:52>
-
Portions of this chart may have been created with voice recognition software.� Occasional wrong word or��sound alike� substitutions may have occurred due to the inherent limitations of voice recognition software.
<Jeff Alexander, DO - Last Filed: 03/02/24 01:51>
ED Attending Note
Patient seen and examined by attending physician: Yes
I performed the substantive portion of visit, reviewed & personally made and approve the management plan that is documented in note by myself or SHAUNA.: Yes
ED Attending Note:
Patient 83-year-old female who presents to the emergency department for swelling, redness and pain over the left knee. Patient has a long history of cellulitis and peripheral vascular disease. Patient was noted a fever. Patient's appetite is
diminished. Patient denies any nasal congestion, sore throat or cough. Patient denies shortness of breath. Patient denies any GI or symptoms although she does state that her appetite is diminished. Patient denies any trauma to the leg. This
started spontaneously. On physical exam the patient is mildly uncomfortable secondary to pain and swelling of the left knee. Heart is regular lungs are clear and abdomen soft nontender. Patient has an approximately 3 to 4 cm abscess that is
pointing on the anterior prepatellar region of the left knee. I&D was done with local anesthesia and a wound culture was done. Wound is left open. The skin and tissue are very friable and is difficult to pack the wound. We will admit.
Discharge Plan
Departure
Patient Disposition: Admit
Date of Disposition: 03/02/24
Time of Disposition: 01:56
Presentation/result/management discussed w/ accepting MD/DO: Hospitalist
Discharge Problem:
Abscess of left knee
Prescriptions:
No Action
methylprednisolone 4 MG tablet
4 mg PO DAILY
cranberry extract [Ellura] 200 mg Capsule
36 mg PO DAILY Qty: 0
carvedilol 12.5 MG tablet
12.5 mg PO BID
albuterol sulfate 2.5 mg /3 mL (0.083 %) Solution For Nebulization
2.5 mg INHALATION R Q4HPRN PRN (Reason: sob)
therapeutic multivitamin Tablet
1 tab PO DAILY
olmesartan-hydrochlorothiazide [Benicar HCT] 40-25 mg Tablet
1 tab PO DAILY
fluticasone propion-salmeterol [Wixela Inhub] 500-50 mcg/dose Blister With Device
1 inh INHALATION R BID
acetaminophen [Tylenol] 325 mg Tablet
650 mg PO Q4HPRN PRN (Reason: mild pain)
sennosides-docusate sodium [Stool Softener-Stimulant Laxat] 8.6-50 mg Tablet
1 tab PO BID Qty: 60 0RF
cephalexin 500 mg Capsule
500 mg PO QID 7 Days Qty: 28 0RF
tramadol 25 mg tablet
25 mg PO Q6H PRN (Reason: Pain) Qty: 10 0RF
multivitamin [One A Day Vitamin] Tablet
1 tab PO DAILY
garlic 1,000 mg Capsule
1,000 mg PO DAILY
magnesium 250 mg Tablet
250 mg PO DAILY
Referrals:
Roberot Carlos Almanza, [Family Provider] -
Interventions
Interventions:
*Risk Screen - Suicide Last Done: 03/02/24 00:47
*General Assessment Last Done: 03/02/24 00:47
*Neglect/Abuse Screening Last Done: 03/02/24 00:47
*ED COVID-19 Vaccine History Last Done: 03/02/24 00:47
ED-Skin Assessment Last Done: 03/02/24 01:13
Discharge Date and Time
Print Language: BULGARIAN
[2024-03-02] MEDS: ZOSYN 100 IV (01:53)
[2024-03-02] MEDS: TYLENOL 650 MG PO (01:55)
[2024-03-02] MEDS: VANCOCIN 200 IV (02:25)
--- NOTE | 2024-03-02 02:30 | HPS.HSE ---
Family Physician
-
Family Physician: Roberto Carlos Almanza
Chief Complaint
-
Left knee pain redness and swelling
History of Present Illness
This is an 83-year-old female with past medical history of recurrent cellulitis and abscess, chronic stasis dermatitis, hypertension, asthma on standing steroids, presenting to the emergency department with left knee swelling redness and pain.
Patient reported that she was seen in the emergency department on February 11 following injury to her left knee at home. At the time she had an x-ray and braces were applied. She followed up with orthopedics and they noted that she developed skin
changes over the braces. This then developed into blisters. Nurses have been coming to the home to evaluate the blisters for some time. The wound appears to be clearing and she has been asymptomatic up until the day of admission today. She
suddenly had redness and pain in that knee today. She could not bend the knee and she was brought to the emergency department.
In the ED she was febrile to 1.5, she was hypertensive initially 2-3/60 pulse was 81 with oxygen saturation 93% on room air. She had a white count of 17,000 with normal hemoglobin and platelets. Chemistries were normal with a BUN of 35. She is
status post I&D with purulent drainage which was sent for cultures.
Medical History
Past Medical History
Past Medical History: Reports Asthma, GERD and HTN
Additional Past Medical History:
DVT
Nephrolithiasis
Venous Insufficiency
Past Surgical History: Reports Tonsilectomy
Social History
Tobacco: Non-smoker
Alcohol: None
Drug: None
Personal: Single
Living: With Family
Employment: Retired
Family History
Family History: Not pertinent
Allergies / Home Medications
Allergies reflects when Allergies were last updated in [facility].
Home Medications with original date entered in [facility]
Allergy/Medication List:
Allergies
Allergy/AdvReac Type Severity Reaction Status Date / Time
doxycycline Allergy Unknown Verified 03/02/24 00:46
morphine Allergy Unknown Verified 03/02/24 00:46
ofloxacin [From Floxin] Allergy TOLERATED Verified 03/02/24 00:46
CIPRO
oxycodone Allergy Nausea / Verified 03/02/24 00:46
Vomiting
sulfamethoxazole Allergy Swelling Verified 03/02/24 00:46
[From Bactrim]
trimethoprim [From Bactrim] Allergy Swelling Verified 03/02/24 00:46
Home Medications
methylprednisolone 4 mg tablet 4 mg PO DAILY inflammation 03/18/20
carvedilol 12.5 mg tablet 12.5 mg PO BID Blood pressure 05/10/22
cranberry extract 200 mg capsule (Ellura) 36 mg PO DAILY Supplement ##0 05/10/22
albuterol sulfate 2.5 mg/3 mL (0.083 %) solution for nebulization 2.5 mg inhalation R Q4HPRN PRN sob 10/31/22
olmesartan 40 mg-hydrochlorothiazide 25 mg tablet (Benicar HCT) 1 tab PO DAILY Blood Pressure 10/31/22
therapeutic multivitamin 1 tab PO DAILY Supplement 10/31/22
fluticasone 500 mcg-salmeterol 50 mcg/dose blistr powdr for inhalation (Wixela Inhub) 1 inh inhalation R BID Lung/Breathing Issues 03/03/23
acetaminophen 325 mg tablet (Tylenol) 650 mg PO Q4HPRN PRN mild pain 03/31/23
cephalexin 500 mg capsule 500 mg PO QID 7 days #28 caps 08/01/23
sennosides 8.6 mg-docusate sodium 50 mg tablet (Stool Softener-Stimulant Laxative) 1 tab PO BID #60 tabs 08/01/23
tramadol 25 mg tablet 25 mg PO Q6H PRN Pain #10 tabs 02/12/24
garlic 1,000 mg capsule 1,000 mg PO DAILY 03/02/24
magnesium 250 mg tablet 250 mg PO DAILY 03/02/24
multivitamin 1 tab PO DAILY 03/02/24
Review of Systems
-
History Source: Patient and Family
Constitutional: Reports No Symptoms
EENT: Reports No Symptoms
Respiratory: Reports No Symptoms
Cardiac: Reports No Symptoms
Abdomen/GI: Reports No Symptoms
: Reports No Symptoms
Musculoskeletal: Reports Joint Pain and Joint Swelling
Skin: Reports Rash
Neurological: Reports No Symptoms
Endocrine: Reports No Symptoms
Hematologic/Lymphatic: Reports No Symptoms
Psych: Reports No Symptoms
Physical Exam
Vital Signs
Vital Signs
Temp Pulse Resp BP Pulse Ox
100.5 F H 80 13 144/50 93
03/02/24 00:47 03/02/24 02:00 03/02/24 01:10 03/02/24 02:00 03/02/24 00:56
Physical Exam
General: Appears in Distress and Pain
HEENT: NormoCephalic, Anicteric, Moist mucous membranes and Atraumatic
Respiratory: Clear
Cardiac: S1/S2 and Regular Rhythm
Breast: Deferred by me
GI: Soft, Non Tender, Non Distended and Normal Bowel Sounds
Rectal: Deferred by Provider
Genito-urinary: Deferred by me
Musculoskeletal: No Clubbing, No Cyanosis, Edema, Left Lower Extremity and Edema, Right Lower Extremity
Skin: Other (Erythema and tenderness over the left knee. Induration noted. s/P I&D and still draining )
Neuro: AO x 3 and Nonfocal/grossly intact
Hematologic/Lymphatic: No Lymphadenopathy
Psych: Calm
Laboratory Results
-
03/02/24 00:56
03/02/24 00:56
Laboratory Results
Lactic Acid 1.5 mmol/L (0.7-2.0) 03/02/24 00:56
Total Bilirubin 0.5 mg/dl (0.2-1.3) 09/29/24 00:56
AST 24 U/L (14-36) 03/02/24 00:56
ALT 20 U/L (0-35) 03/02/24 00:56
Alkaline Phosphatase 62 U/L (38-126) 03/02/24 00:56
Data Reviewed
-
Lab Data: Labs Reviewed by me
Old Records: Reviewed
Impression/Plan
-
IMPRESSION:
Patient was history of recurrent cellulitis in the past presents to the emergency department with left knee erythema, tenderness and swelling in the setting of previous skin irritation consistent with skin abscess. She is febrile with leukocytosis
suggestive of systemic inflammation. She is hemodynamically stable. Electrolytes and bicarb are within normal limits.
PLAN:
1. Cellulitis -patient with purulent cellulitis status post I&D. She does have systemic findings. 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 On Keflex PPX for skin infections at home and
chronic prednisone. High risk for systemic infection and decompensation.
- admit to med/surg
- wound culture sent, blood culture sent
- will continue Vancomycin given MRSA colonization
- continue Zosyn given pseudomonas skin infection/abscess in the recent past
- Infectious disease consult
- pain control, continue drainage.
2. Asthma - No acute exacerbation
- continue ICS/LABA
- continue methylprednisolone 4mg po daily chronic med
- prn albuterol
3. HTN - Transiently hypertensive in ED. Improved with one dose of labetolol
- continue carvedilol 6.25 bid
- HCTZ 25 and ARB
DVT PPx - Lovenox
Code Status - Partial DNR, NO CPR, INTUBATION for respiratory distress ok
[2024-03-02] MEDS: FLUSH (NSS) 1 FLUSH IV (03:52)
[2024-03-02 05:36] LABS: Hematocrit 35.3 % (37.0-47.0); Hemoglobin 11.5 g/dL (12.0-16.0); Mean Corp Hgb Conc. 32.6 g/dL (33.0-37.0); Mean Corpuscular Hgb 29.9 pg (27.0-31.0); Mean Corpuscular Volume 91.7 fL (81.0-99.0); Mean Platelet Volume 9.1 fL (7.4-10.4); Platelet Count 218 10^3/uL (130-400); Red Blood Cell Count 3.85 10^6/uL (4.20-5.40); Red Cell Dist. Width 15.6 % (11.5-14.5)
[2024-03-02 06:02] LABS: Blood Urea Nitrogen 34 mg/dl (7-17); Calcium 9.6 mg/dl (8.4-10.2); Carbon Dioxide 27 mmol/L (22-30); Chloride 103 mmol/L (98-107); Estimated Creatinine Clearance 39 ml/min; Glucose 102 mg/dl (70-99); Magnesium 1.8 mg/dl (1.6-2.3); Potassium 3.4 mmol/L (3.5-5.1); Sodium 143 mmol/L (135-145); eGFR > 60.00
[2024-03-02] MEDS: COREG 6.25 MG PO ×2 (09:17→20:35)
[2024-03-02] MEDS: ORETIC 25 MG PO (09:17)
[2024-03-02] MEDS: BENICAR 40 MG PO (09:18)
[2024-03-02] MEDS: MEDROL 4 MG PO (09:18)
[2024-03-02] MEDS: ZOSYN 50 IV ×3 (09:19→20:36)
[2024-03-02] MEDS: ADVAIR HFA 230/21 MCG INHALER 2 PUFF INH ×2 (09:45→19:56)
--- NOTE | 2024-03-02 10:09 | PHA.VAN.IN ---
Assessment
- Assessment
Renal Function: Appears elevated from baseline (0.7 on 08/01/23)
Maximum Temperature: 100.5 03/02/24 at 00:47
Minimum Temperature: 99.7 03/02/24 at 04:57
Concomitant Antimicrobials: Piperacillin-tazobactam (anti-pseudomonal dosing)
Historical Micro: History of MRSA infection (Left leg wound culture 03/31/23)
Pseudomonas-Left leg wound culture 03/31/23
- Previous Dosing Experience
Previous Regimen: Vancomycin 750mg IV daily which was changed to 1gm IV daily after levels
Date of Regimen: 03/31/23
Provided Trough of: 9.6 (actual), estimated this admission: 11.1
Provided AUC of: 440
Patient's SCR is: Elevated compared to previous dosing experience (Scr 0.8)
Patient's weight is: Elevated compared to previous dosing experience (59.5)
Patient dose on previous regimen 04/04/23 vancomycin dose was adjusted to 1gm IV daily. Renal function improved with crcl=57, trough using linear kinetics 12.8
AUC Dosing Plan
- Dosing Variables
Dosing Weight (kg): 63.1
Dosing CrCl (ml/min): 39
Vd coefficient (L/kg): 0.7
- Empiric Dosing
Initial / Loading Dose: Vancomycin 1000mg IV given 03/02/24 at 02:14
Maintenance Regimen: Vancomycin 750mg IV daily administration pending ~10:30am
Estimated AUC (mcg*h/mL): 470
Estimated Peak (mcg*h/mL): 29
Estimated Trough (mcg/ml): 12
Estimated Half Life (H): 18.8
- Monitoring
No levels ordered at this time: Will order levels according to vancomycin dosing protocol
Pharmacokinetics Vancomycin I
- -
Patient Age: 83
Patient Sex: Female
Vancomycin Day #: 1
Indication: Bone And Joint
Requesting Provider: Dr. Baljit Echols
Pertinent Antimicrobial Allergies:
Doxycycline-Unknown reaction
Bactrim (sulfamethoxazole, trimethoprim)-swelling
Ofloxacin- unknown reaction. tolerates cipro
Height / Weight:
Height 5 ft 3 in
Actual Weight 63.1 kg
IBW in k.4
Adjusted BW in k.7
Pertinent Past Medical History: Recurrent cellulitis/abscess on proph keflex, chronic steriods
- Vital Signs / Lab Results
Temp Pulse Resp BP Pulse Ox
99.7 F 78 19 157/48 98
03/02/24 04:53 03/02/24 09:48 03/02/24 09:48 03/02/24 09:00 03/02/24 09:48
Lab Results - Hematology
03/02/24 03/02/24
00:56 05:25
WBC 17.7 H 20.0 H
Lab Results - Chemistry
03/02/24 03/02/24
00:56 05:25
BUN 35 H 34 H
Creatinine 0.9 0.9
Estimated Creat Clear 39 39
Albumin 3.9
03/02/24 03/02/24
00:56 05:00
Lactic Acid 1.5 Cancelled
[2024-03-02] MEDS: ZOFRAN 4 MG IV (10:10)
--- NOTE | 2024-03-02 12:50 | W.PN.UPDATE ---
Addendum entered and electronically signed by Jeff Fortune MD 03/02/24 13:00:
If no improvement to consider left lower extremity imaging either CT versus MRI.
Original Note:
Update Note
Progress Note Update
Seen and examined independent of overnight physician. Nonbillable note.
Patient states of decreased appetite and weakness. States of left knee pain.
General: Appears in Distress and Pain
HEENT: NormoCephalic, Anicteric, Moist mucous membranes and Atraumatic
Respiratory: Clear
Cardiac: S1/S2 and Regular Rhythm
GI: Soft, Non Tender, Non Distended and Normal Bowel Sounds
Musculoskeletal: No Clubbing, No Cyanosis, Edema, Left Lower Extremity and Edema, Right Lower Extremity
Skin: Erythema and tenderness over the left knee. Induration noted. s/P I&D -new dressing not much drainage.
Neuro: AO x 3 and Nonfocal/grossly intact
Hematologic/Lymphatic: No Lymphadenopathy
Psych: Calm
Patient was history of recurrent cellulitis in the past presents to the emergency department with left knee erythema, tenderness and swelling in the setting of previous skin irritation consistent with skin abscess. She is febrile with leukocytosis
suggestive of systemic inflammation. She is hemodynamically stable. Electrolytes and bicarb are within normal limits.
PLAN:
Cellulitis -patient with purulent cellulitis status post I&D. On Keflex PPX for skin infections at home and chronic prednisone.
- wound culture sent, blood culture sent
- will continue Vancomycin given MRSA colonization
- continue Zosyn given pseudomonas skin infection/abscess in the recent past
- Infectious disease consult
- pain control, continue drainage.
Asthma - No acute exacerbation
- continue ICS/LABA
- continue methylprednisolone 4mg po daily chronic med
- prn albuterol
HTN Primary
- continue carvedilol 6.25 bid
- HCTZ 25 and ARB
Urinary retention s/p cath
-bladder scan protocol
DVT PPx - Lovenox
Code Status - Partial DNR, NO CPR, INTUBATION for respiratory distress ok
Discussed with family at bedside in detail
[2024-03-02] MEDS: VANCOCIN 150 IV (13:02)
[2024-03-02] MEDS: KCL 260 MEQ IV (13:51)
--- NOTE | 2024-03-02 14:02 | CON.ID ---
Consultation
-
Date/Time Consultation Requested: 03/02/24 02:59
Date/Time Consultation Performed: 03/02/24 14:04
Requesting Provider: Dr Echols
Performing Provider: Dr Lemon
Reason for Consultation: purulent LE cellulitis with sirs, h/o pseudomonas and mrsa abscesses/cellul
Chief Complaint / Past History
Chief Complaint
Left knee pain redness and swelling
History of Present Illness
Ms Teixeira is an 83 year old female known to me for recurrent cellulitis (suppressive keflex), SCC of the L lower extremity, chronic steroid use who presents here last night for redness, swelling, tenderness and extremely limited range of motion.
Reports symptoms began with a fall and injury to the left knee at home, she was placed in a brace but developed a blister at the site of the brace, she has trever getting wound care but on the day of arrival she developed the redness, pain and welling.
In the ER febrile to 100.5, bp stable, wbc 20, hgb 11.5, plt 218, cr 0.9, t bili 0.5, ast 24, alt 20, alk pohs 62, no imaging done thus far
Past History
Additional Past Medical History:
Asthma, GERD and HTN
DVT
Nephrolithiasis
Venous Insufficiency
Past Surgical History: Tonsilectomy
Allergy History:
doxycycline Allergy (Verified 03/02/24 00:46)
Unknown
morphine Allergy (Verified 03/02/24 00:46)
Unknown
ofloxacin [From Floxin] Allergy (Verified 03/02/24 00:46)
TOLERATED CIPRO
oxycodone Allergy (Verified 03/02/24 00:46)
Nausea / Vomiting
sulfamethoxazole [From Bactrim] Allergy (Verified 03/02/24 00:46)
Swelling
trimethoprim [From Bactrim] Allergy (Verified 03/02/24 00:46)
Swelling
Medications Reviewed: Yes
Social History
Tobacco: Non-Smoker
Alcohol: None
Drug: None
Family History
Family History: Not Pertinent
Review of Systems
Review of Systems
General: Fever; Negative Chills
All systems: All other systems were reviewed and were negative
Vital Signs
Temp Pulse Resp BP Pulse Ox
98.6 F 66 30 153/51 94
03/02/24 13:14 03/02/24 13:15 03/02/24 13:15 03/02/24 13:00 03/02/24 13:15
Physical Exam
Physical Exam
Constitutional: No Acute Distress
Cardiovascular: Regular Rate and S1/S2; Negative Murmur or Rub
Pulmonary: Clear and Symmetric; Negative Wheezes, Rales or Rhonchi
Gastrointestinal: Soft, Non Tender, Non Distended and Normal Bowel Sounds
Extremities: Other (L knee redness, swelling, tenderness and very limited range of motion (perhaps 10 degrees))
Skin: Warm and Dry; Negative Rash or Jaundice
Lab / Diagnostic Study Results
03/02/24 05:25
03/02/24 05:25
Abs Immat Gran (auto) 0.2 10^3/uL (0-0.05) H 03/02/24 00:56
Absolute Neuts (auto) 13.7 10^3/uL (1.4-6.5) H 03/02/24 00:56
Absolute Lymphs (auto) 1.7 10^3/uL (1.2-3.4) 03/02/24 00:56
Absolute Monos (auto) 2.0 10^3/uL (0.1-0.6) H 03/02/24 00:56
Absolute Basos (auto) 0.1 10^3/uL (0-0.2) 03/02/24 00:56
Immature Gran % 1.3 % (0-0.5) H 03/02/24 00:56
Neutrophils % 77.3 % (42.2-75.2) H 03/02/24 00:56
Lymphocytes % 9.8 % (20.5-51.1) L 03/02/24 00:56
Monocytes % 11.2 % (1.7-9.3) H 03/02/24 00:56
Eosinophils % 0.1 % (0-6) 03/02/24 00:56
Basophils % 0.3 % (0-2) 03/02/24 00:56
Lactic Acid Cancelled 03/02/24 05:00
Microbiology Results
Micro:
03/02/24 Unknown Wound Culture - Pending
Abscess Gram Stain - Pending
03/02/24 01:51 Blood Culture - Pending
Blood/Venous
Assessment / Plan
Suspected Septic L knee Joint
Prepatellar bursitis
Chronic steroid use
H/o multiple drug allergies
- blood cultures x2 recommended for suspected [place] septic joint - ordered
- CT L knee with IV contrast
- s/p I&D of the prepatellar bursae with culture in progress
- consulted orthopedics with concern for possible septic joint, suggest arthrocentesis and washout if suspicions confirmed
- continue vancomycin and zosyn
- follow clinically
Care Review
Plan reviewed with: Physician (Dr Michael - consult, suspected septic joint)
[2024-03-02] MEDS: LOVENOX 40 MG SC (18:06)
[2024-03-02] MEDS: ULTRAM 50 MG PO (21:02)
[2024-03-03] MEDS: ZOSYN 50 IV ×3 (02:28→13:12)
[2024-03-03] MEDS: VANCOCIN 150 IV (05:47)
--- NOTE | 2024-03-03 06:35 | W.PN.UPDATE ---
Update Note
Progress Note Update
Full orthopedic consult dictated:
Dx: Left knee septic prepatellar bursitis, left knee sprain 02/11, chronic bilateral lower extremity cellulitis Dr Lemon, PAD followed by Dr Helms, history of chronic bilateral leg wounds followed by Dr. Roberts, bilateral lower extremity
squamous cell carcinoma currently being treated by dermatology
Plan: Patient has left knee septic prepatellar bursitis and I was able to express moderate amount of purulent drainage this morning. A new nonadherent dressing and bulky dressing was applied. Continue with IV antibiotics per ID. Agree with
wound care consult with multiple skin issues bilateral lower extremities. On exam she does not appear to have effusion. At the moment I will defer arthrocentesis for concerns of introducing infection. She is scheduled for an MRI today and we will
await completion of the study to determine further treatment options from orthopedic standpoint. Orthopedics to follow-up once MRI completed.
[2024-03-03 06:44] LABS: % Basophils 0.3 % (0-2); % Eosinophils 0.5 % (0-6); % Immature Granulocytes 1.6 % (0-0.5); % Lymphocytes 9.4 % (20.5-51.1); % Neutrophils 78.2 % (42.2-75.2); Absolute Basophils 0.1 10^3/uL (0-0.2); Absolute Eosinophils 0.1 10^3/uL (0-0.7); Absolute Immature Granulocytes 0.3 10^3/uL (0-0.05); Absolute Lymphocytes 1.7 10^3/uL (1.2-3.4); Absolute Monocytes 1.8 10^3/uL (0.1-0.6); Absolute Neutrophils 14.4 10^3/uL (1.4-6.5); Hematocrit 31.9 % (37.0-47.0); Hemoglobin 10.3 g/dL (12.0-16.0); Mean Corp Hgb Conc. 32.3 g/dL (33.0-37.0); Mean Corpuscular Hgb 29.8 pg (27.0-31.0); Mean Corpuscular Volume 92.2 fL (81.0-99.0); Mean Platelet Volume 9.2 fL (7.4-10.4); Nucleated Red Blood Cells % 0 %; Platelet Count 211 10^3/uL (130-400); Red Blood Cell Count 3.46 10^6/uL (4.20-5.40); Red Cell Dist. Width 15.8 % (11.5-14.5); White Blood Cell Count 18.4 10^3/uL (4.8-10.8)
--- NOTE | 2024-03-03 06:49 | W.PN.HOSP.TC ---
Today's Communication/Plan
-
cont abx as per ID
follow cultures
pending Lt knee MRI
wound care
Assessment / Plan
Assessment / Plan
Physical Exam
General: No acute distress appears comfortable at rest
HEENT: NormoCephalic, Anicteric, Moist mucous membranes and Atraumatic
Respiratory: Clear
Cardiac: S1/S2 and Regular Rhythm
GI: Soft, Non Tender, Non Distended and Normal Bowel Sounds
Musculoskeletal: No Clubbing, No Cyanosis, Edema, Left Lower Extremity and Edema, Right Lower Extremity
Skin: Dressing left knee clean dry intact
Neuro: AO x 3
Psych: Calm
83F spinal stenosis history of recurrent cellulitis in the past presents to the emergency department with left knee erythema, tenderness and swelling in the setting of previous skin irritation consistent with skin abscess. She is febrile with
leukocytosis suggestive of systemic inflammation. She is hemodynamically stable. Electrolytes and bicarb are within normal limits.
PLAN:
Cellulitis -patient with purulent cellulitis status post I&D. On Keflex PPX for skin infections at home and chronic prednisone.
Sepsis prepatellar bursitis (leukocytosis fever)
- wound culture sent, blood culture sent
- MRSA colonization
- treated empirically with vanc zosyn
- Infectious disease consult appreciated, cont with vanc, zosyn discontinued
- pain control, wound care
-Ortho eval appreciated
-pending MRI left knee eval possible septic Lt knee
Asthma - No acute exacerbation
- continue ICS/LABA
- continue methylprednisolone 4mg po daily chronic med
- prn albuterol
HTN Primary
- continue carvedilol 6.25 bid
- HCTZ 25 and ARB
Urinary retention s/p cath
-bladder scan protocol
DVT PPx - Lovenox
Code Status - Partial DNR, NO CPR, INTUBATION for respiratory distress ok
I spent a total of 50 minutes with the patient or on the floor. More than 50% of this time involved counseling and coordination of care.
Anticipated Discharge: 24 - 48 hours
Subjective/Interval History
-
Date of Service: March 03, 2024
Reports improvement in pain swelling left knee, mobility remains limited.
Objective Data
-
Labs:
Laboratory Results
03/03/24
05:20
WBC 18.4 H
Hgb 10.3 L
Hct 31.9 L
Plt Count 211
Sodium Pending
Potassium Pending
Chloride Pending
Carbon Dioxide Pending
BUN Pending
Creatinine Pending
Glucose Pending
Calcium Pending
Vital Signs:
Vital Signs
Temp Pulse Resp BP Pulse Ox
98.4 F 76 18 116/44 97
03/02/24 23:37 03/02/24 23:37 03/02/24 23:37 03/02/24 23:37 03/02/24 23:37
I&O
03/01/24 03/02/24 03/03/24
06:59 06:59 06:59
Intake Total 730 / 730
Output Total 750 / 750
Balance -20 / -20
[2024-03-03 06:58] VITALS: BP 118/49
[2024-03-03 07:31] LABS: Blood Urea Nitrogen 26 mg/dl (7-17); Calcium 8.6 mg/dl (8.4-10.2); Carbon Dioxide 24 mmol/L (22-30); Chloride 101 mmol/L (98-107); Estimated Creatinine Clearance 35 ml/min; Glucose 81 mg/dl (70-99); Potassium 3.7 mmol/L (3.5-5.1); Sodium 138 mmol/L (135-145)
[2024-03-03] MEDS: COREG 6.25 MG PO ×2 (08:05→19:51)
[2024-03-03] MEDS: ORETIC 25 MG PO (08:06)
[2024-03-03] MEDS: BENICAR 40 MG PO (08:06)
[2024-03-03] MEDS: MEDROL 4 MG PO (08:06)
--- NOTE | 2024-03-03 08:08 | PHA.VAN.FU ---
Vancomycin Assessment / Plan
- Assessment
Renal Function: Stable
Concomitant Antimicrobials: piperacillin/tazobactam
- Dosing Plan
Continue: Vanc 750mg Q24H
- Monitoring Plan
No level(s) ordered at this time: consider levels in next few days
- Follow Up
Pharmacy will continue to follow.
Vancomycin Follow UP
- -
Patient Age: 83
Patient Sex: Female
Vancomycin Day #: 2
Indication: Bone And Joint
Requesting Provider: Dr. Baljit Echols / [facility]
Pertinent Antimicrobial Allergies:
Doxycycline-Unknown reaction
Bactrim (sulfamethoxazole, trimethoprim)-swelling
Ofloxacin- unknown reaction. tolerates cipro
Height / Weight:
Height 5 ft 3 in
Actual Weight 63.1 kg
IBW in k.4
Adjusted BW in k.7
Pertinent Past Medical History: Recurrent cellulitis (chronic cephalexin), Asthma (chronic methylpred)
- Vital Signs / Lab Results
Temp Pulse Resp BP Pulse Ox
98.2 F 71 18 118/49 95
03/03/24 06:58 03/03/24 06:58 03/03/24 06:58 03/03/24 06:58 03/03/24 06:58
Lab Results - Hematology
03/02/24 03/02/24 03/03/24
00:56 05:25 05:20
WBC 17.7 H 20.0 H 18.4 H
Lab Results - Chemistry
03/02/24 03/02/24 03/03/24
00:56 05:25 05:20
BUN 35 H 34 H 26 H
Creatinine 0.9 0.9 1.0
Estimated Creat Clear 39 39 35
Albumin 3.9
03/02/24 03/02/24
00:56 05:00
Lactic Acid 1.5 Cancelled
Microbiology Results
03/02/24 01:51 Blood Culture - Preliminary
Blood/Venous No Growth in 24 hours- Final report to follow
03/02/24 Unknown Gram Stain - Preliminary
Abscess
[2024-03-03] MEDS: ADVAIR HFA 230/21 MCG INHALER 2 PUFF INH ×2 (08:49→19:31)
[2024-03-03 08:54] LABS: Erythrocyte Sed Rate 57 mm/hour (0-20)
--- NOTE | 2024-03-03 09:11 | VNURNOTE ---
Chart reviewed. [facility] and [facility]. Will continue to follow hospital course and DC plans.
[2024-03-03 09:37] LABS: C-Reactive Protein > 270.00 mg/L (0.0-10.00)
--- NOTE | 2024-03-03 10:45 | CM ---
Patient seen at bedside
IA completed. Current with [facility]
Referral in [facility] for [facility]
Patient lives at home with her daughter in a 2 story home with 3 steps to enter.
She states she resides on the 1st floor.
PLOF: Independent with rollator walker
DME in home: transport w/c, raised toilet seat, shower chair.
PCP: Dr. Roberto Carlos Glaser
Pharmacy: [facility]
PLAN: Discharge when medically stable, FEDE with [facility]
[2024-03-03] MEDS: ULTRAM 50 MG PO ×2 (13:33→19:51)
[2024-03-03 15:05] VITALS: BP 129/48
--- NOTE | 2024-03-03 15:40 | W.PN.ID1 ---
Date of Service
Date of Service: March 03, 2024
Today's Communication
continue vancomycin
Assessment / Plan
Suspected Septic L knee Joint
Prepatellar bursitis
Chronic steroid use
H/o multiple drug allergies
- I do suspect that the prepatellar bursitis is now complicating the knee joint itself, patient with markedly limited range of motion due to pain, suspected joint effusion on my exam. Medical staff was notified that MRI machine is down and results
may be delayed. I did speak with attending would be delayed
- blood cultures x2 recommended for suspected [place] septic joint - ordered
- MRI knee preferred by Dr Michael orthopedics - pending
- s/p I&D of the prepatellar bursae
- wound culture s aureus
- consulted orthopedics with concern for possible septic joint, suggest arthrocentesis and washout if suspicions confirmed
- continue vancomycin; stopped zosyn
- follow clinically
Chief Complaint
-: Other (suspected septic joint)
Subjective / Review of Systems
afebrile
bp stable
no events overnight
seen by orthopedics PA, I have requested that an attending orthopedist evaluate her as well. I am concerned by the decreased range of motion of the joint. Discussion via tiger text including my physical exam findings with Dr Michael on 03/02.
Today I tiger texted with Dr Rudolph today who referred me back to Dr Michael. I left message requesting discussion with attending today with Dr Michael.
Vital Signs / Physical Exam
Vital Signs
Vital Signs
Temp Pulse Resp BP Pulse Ox
98.2 F 65 16 118/49 95
03/03/24 06:58 03/03/24 08:50 03/03/24 08:50 03/03/24 08:05 03/03/24 08:50
Physical Exam
Constitutional: No Acute Distress
Cardiovascular: Regular Rate and S1/S2; Negative Murmur or Rub
Pulmonary: Clear and Symmetric; Negative Wheezes or Rales
Gastrointestinal: Soft, Non Tender, Non Distended and Normal Bowel Sounds
Musculoskeletal: Other (L knee limited range of motion, marked swelling, I appreciate fullness lateral to the patella c/w joint effusion; I&D site over prepatellar burase with purulent appearing drainage)
Skin: Warm and Dry; Negative Rash or Jaundice
Objective Data
Lab Data
Lab Results
03/03/24 05:20
03/03/24 05:20
ESR Cancelled 03/03/24 07:35
Estimated Creat Clear 35 ml/min 03/03/24 05:20
Lactic Acid Cancelled 03/02/24 05:00
Total Bilirubin 0.5 mg/dl (0.2-1.3) 03/02/24 00:56
AST 24 U/L (14-36) 03/02/24 00:56
ALT 20 U/L (0-35) 03/02/24 00:56
Alkaline Phosphatase 62 U/L (38-126) 03/02/24 00:56
C-Reactive Protein Cancelled 03/03/24 07:35
Most recent labs reviewed.
Micro Results:
03/02/24 Unknown Wound Culture - Preliminary
Abscess Staphylococcus aureus
Gram Stain - Preliminary
03/02/24 01:51 Blood Culture - Preliminary
Blood/Venous No Growth in 24 hours- Final report to follow
03/02/24 15:54 Blood Culture - Pending
Blood/Venous
[2024-03-03] MEDS: LOVENOX 40 MG SC (17:11)
[2024-03-03 23:42] VITALS: BP 125/56
[2024-03-04] MEDS: VANCOCIN 150 IV (06:11)
[2024-03-04 06:43] LABS: Hematocrit 30.9 % (37.0-47.0); Mean Corp Hgb Conc. 32.4 g/dL (33.0-37.0); Mean Corpuscular Hgb 30.7 pg (27.0-31.0); Mean Corpuscular Volume 94.8 fL (81.0-99.0); Mean Platelet Volume 9.2 fL (7.4-10.4); Platelet Count 196 10^3/uL (130-400); Red Blood Cell Count 3.26 10^6/uL (4.20-5.40); Red Cell Dist. Width 15.4 % (11.5-14.5); White Blood Cell Count 14.3 10^3/uL (4.8-10.8)
[2024-03-04 07:00] VITALS: BP 160/71
[2024-03-04 07:07] LABS: Blood Urea Nitrogen 28 mg/dl (7-17); Calcium 8.3 mg/dl (8.4-10.2); Carbon Dioxide 27 mmol/L (22-30); Chloride 101 mmol/L (98-107); Estimated Creatinine Clearance 39 ml/min; Glucose 83 mg/dl (70-99); Potassium 3.7 mmol/L (3.5-5.1); Sodium 139 mmol/L (135-145); eGFR > 60.00
[2024-03-04] MEDS: ADVAIR HFA 230/21 MCG INHALER 2 PUFF INH ×2 (07:14→20:13)
--- NOTE | 2024-03-04 07:47 | W.PN.HOSP.TC ---
Addendum entered and electronically signed by Artemio Edwards MD 03/05/24 05:01:
stage 2 sacral pressure injury POA
-cont local wound care
Original Note:
Today's Communication/Plan
-
cont abx
bowel regimen
npo after midnight for possible I&D w/ Orthopedic
Assessment / Plan
Assessment / Plan
Physical Exam
General: No acute distress appears comfortable at rest
HEENT: NormoCephalic, Anicteric, Moist mucous membranes and Atraumatic
Respiratory: Clear
Cardiac: S1/S2 and Regular Rhythm
GI: Soft, Non Tender, Non Distended and Normal Bowel Sounds
Musculoskeletal: No Clubbing, No Cyanosis, Edema, Left Lower Extremity and Edema, Right Lower Extremity
Skin: Dressing left knee clean dry intact
Neuro: AO x 3
Psych: Calm
83F spinal stenosis history of recurrent cellulitis in the past presents to the emergency department with left knee erythema, tenderness and swelling in the setting of previous skin irritation consistent with skin abscess. She is febrile with
leukocytosis suggestive of systemic inflammation. She is hemodynamically stable. Electrolytes and bicarb are within normal limits.
PLAN:
Cellulitis -patient with purulent cellulitis status post I&D. On Keflex PPX for skin infections at home and chronic prednisone.
Sepsis prepatellar bursitis (leukocytosis fever)
- wound culture sent, blood culture sent
- MRSA colonization
- treated empirically with vanc zosyn
- Infectious disease consult appreciated, cont with vanc, zosyn discontinued
- pain control, wound care
-Ortho eval appreciated bedside arthrocentesis performed, tentatively planned for OR tomorrow possible I & D
-MRI left knee appreciated
Asthma - No acute exacerbation
- continue ICS/LABA
- continue methylprednisolone 4mg po daily chronic med
- prn albuterol
HTN Primary
- continue carvedilol 6.25 bid
- HCTZ 25 and ARB
Urinary retention s/p cath
-bladder scan protocol
Constipation
bowel regimen
PO dulcolax once
DVT PPx - Lovenox
Code Status - Partial DNR, NO CPR, INTUBATION ok
Discussed with patient and patient's daughter Anabelle
I spent a total of 50 minutes with the patient or on the floor. More than 50% of this time involved counseling and coordination of care.
Anticipated Discharge: > 48 hours
Subjective/Interval History
-
Date of Service: March 04, 2024
Reports constipation otherwise overall patient reports feeling well, Left knee continues to improve per patient.
Objective Data
-
Labs:
Laboratory Results
03/04/24
05:26
WBC 14.3 H
Hgb 10.0 L
Hct 30.9 L
Plt Count 196
Sodium 139
Potassium 3.7
Chloride 101
Carbon Dioxide 27
BUN 28 H
Creatinine 0.9
Glucose 83
Calcium 8.3 L
Vital Signs:
Vital Signs
Temp Pulse Resp BP Pulse Ox
98.6 F 70 16 125/56 92
03/03/24 23:42 03/04/24 07:16 03/04/24 07:16 03/03/24 23:42 03/03/24 23:42
I&O
03/03/24 03/04/24 03/05/24
06:59 06:59 06:59
Intake Total 730 / 730 1350 / 1350
Output Total 750 / 750
Balance -20 / -20 1350 / 1350
--- NOTE | 2024-03-04 08:21 | PHA.VAN.FU ---
Vancomycin Assessment / Plan
- Assessment
Renal Function: Stable
WBC's are: Trending Down
In the past 24 hrs, patient has been: Afebrile
- Dosing Plan
Continue: Vanc 750mg Q24H
- Monitoring Plan
No level(s) ordered at this time: follow-up OR plans - will consider levels in next few days
- Follow Up
Pharmacy will continue to follow.
Vancomycin Follow UP
- -
Patient Age: 83
Patient Sex: Female
Vancomycin Day #: 3
Indication: Bone And Joint
Requesting Provider: Dr. Baljit Echols / [facility]
Pertinent Antimicrobial Allergies:
Doxycycline-Unknown reaction
Bactrim (sulfamethoxazole, trimethoprim)-swelling
Ofloxacin- unknown reaction. tolerates cipro
Height / Weight:
Height 5 ft 3 in
Actual Weight 63.1 kg
IBW in k.4
Adjusted BW in k.7
Pertinent Past Medical History: Recurrent cellulitis (chronic cephalexin), Asthma (chronic methylpred)
- Vital Signs / Lab Results
Temp Pulse Resp BP Pulse Ox
97.6 F 70 16 160/71 93
03/04/24 07:00 03/04/24 07:16 03/04/24 07:16 03/04/24 07:00 03/04/24 07:00
Lab Results - Hematology
03/02/24 03/02/24 03/03/24
00:56 05:25 05:20
WBC 17.7 H 20.0 H 18.4 H
03/04/24
05:26
WBC 14.3 H
Lab Results - Chemistry
03/02/24 03/02/24 03/03/24
00:56 05:25 05:20
BUN 35 H 34 H 26 H
Creatinine 0.9 0.9 1.0
Estimated Creat Clear 39 39 35
Albumin 3.9
03/04/24
05:26
BUN 28 H
Creatinine 0.9
Estimated Creat Clear 39
Albumin
03/02/24 03/02/24
00:56 05:00
Lactic Acid 1.5 Cancelled
Microbiology Results
03/02/24 Unknown Wound Culture - Preliminary
Abscess Staphylococcus aureus
Gram Stain - Preliminary
03/02/24 01:51 Blood Culture - Preliminary
Blood/Venous No Growth in 48 hours- Final report to follow
03/02/24 15:54 Blood Culture - Preliminary
Blood/Venous No Growth in 24 hours- Final report to follow
--- NOTE | 2024-03-04 08:43 | W.PN.ORTHO ---
Today's Communication / Plan
-
83F left knee septic bursitis, possible septic joint
-pending MRI at this time; ROM and clinical exam improving, however may need to consider aspiration to definitely r/o septic joint
-pending MRI results will provide further recs; likely joint aspiration
-tentatively posted for OR tomorrow for I and D
Assessment
.
Dressing:
Clean, dry and intact.
Plan
.
Activity:
Out of bed.
PT/OT
Subjective
.
.:
Patient resting comfortably. Reports improved symptoms about the left knee.
Vital Signs and Labs
.
Vital Signs and Labs:
Lab Results
03/04/24 05:26
03/04/24 05:26
Temp Pulse Resp BP Pulse Ox
97.6 F 70 16 160/71 93
03/04/24 07:00 03/04/24 07:16 03/04/24 07:16 03/04/24 07:00 03/04/24 07:00
Physical Exam
-
Focused exam of the left lower extremity of the knee shows a vertical incision overlying direct aspect of the anterior knee; with flexion expressed purulence/serous drainage. No significant erythema. Mild to minimal effusion. NVI L3-S1 to baseline.
ROM 0-80 degrees on exam
[2024-03-04] MEDS: MEDROL 4 MG PO (08:51)
[2024-03-04] MEDS: COREG 6.25 MG PO ×2 (08:51→20:56)
[2024-03-04] MEDS: BENICAR 40 MG PO (08:51)
[2024-03-04] MEDS: ORETIC 25 MG PO (08:51)
--- NOTE | 2024-03-04 11:43 | PN.CDI ---
CDI
- -
CDI:
Physician Documentation Request
Admit Date: 03/02/24 02:53
Dear Doctor Grace,
Please review the following and provide your response in the progress notes.
Clinical Indicators:
Pt admitted with cellulitis, possible septic joint.
03/02 RN skin assessment documented stage 2 sacral pressure injury POA.
Physician documentation of the type and location of wounds is required for compliant documentation. Based on the above clinical findings and your assessment, please provide the following in your progress note:
Type (etiology) of ulcer/wound:
Sacral stage pressure injury POA
Sacral non-pressure injury POA
Other
Use of terms such as suspected, likely, concern for, or probable (associated with a specific diagnosis that is being evaluated, monitored, or treated as if it exists) are acceptable and can be coded in the inpatient setting, when documented at the
time of discharge.
Thank you,
Adilene Finnegan RN, BSN
CDI Specialist
Available via [employer]
Please use your independent medical judgment in providing your response.
*Source: National Pressure Ulcer Advisory Panel (NPUAP)
--- NOTE | 2024-03-04 13:07 | WOUNDNOTE ---
R LOWER LEG DISTAL
--- NOTE | 2024-03-04 13:08 | WOUNDNOTE ---
R LOWER LEG BELOW KNEE
--- NOTE | 2024-03-04 13:09 | WOUNDNOTE ---
SACRUM AND BUTTOCKS
--- NOTE | 2024-03-04 13:11 | WOUNDNOTE ---
WON RN note: Patient admitted with Abscess of L knee.
Patient lives with her daughter and is current with . She follows [facility].
See H&P for complete history.
PMH: squamous cell ca B/L LE - XRT, asthma, nephrolithiasis, UTI's, LE cellulitis, PAD seen by Dr. Helms, DVT R femoral vein 01/2022, venous stasis, back pain.L leg trauma wound, Sacral PI, L knee sprain-recent leg brace used.
Wound Location and type/assessment: Patient known to service last seen 07/30/23. Has chronic skin cancer ulcers both lower legs. Stopped going to [facility]. Went to see Dr. Flores who recommended Dr. Fraser for Moh's procedure, not
done yet. Currently using adaptic and dry dressing both legs and marcus wraps for compression. L knee with draining abscess, reviewed ortho and I&D notes, + staph. Patient states she got abscess from brace rubbing on area. Able to lift leg with assist.
Patient for OR tomorrow for further I&D of abscess. MRI showed full thickness tear of quadriceps tendon. Legs with Chronic lymphedema/ bruising and chronic scattered hyperkeratotic raised areas of skin. Last RLE venous Doppler negative for DVT. +
pulses audible with Doppler, heels intact. L upper buttocks and sacrum with chronic re opened ulcers, stage 2 vs stage 3 PI and shearing suspected. Patient able to turn in bed with assist. Ambulates with rolling walker at home patient confirmed.
Groin skin folds with mild MASD.
Appetite: Good.
Pressure redistribution devices in place: VersaIngenic Accumax. Air chair cushion brought into to use when sitting. Called bed [facility] for [facility] air bed, nurse Maryse aware. Pillow placed under calves. Foams to heels.
Plan: B/L LE dressings changed using adaptic and dry dressing. Marcus wrap applied lightly to R leg knee high, patient states R lower leg ulcer painful if too tight. Applied 2 ABD's then Kerlix to L knee, further orders per Ortho. For buttocks/sacrum
applied dusting of fungal powder then skin prep to jonnathan wounds, adaptic and large Silicone border foam. Heels off bed with pillow, foams applied to protect. Applied A&D ointment to legs, will order mineral oil. Instructed patient importance of
eating for wound healing and pressure injury prevention measures.
Will confirm orders with hospitalist and discussed with RIO Serra.
Care plan to be updated and will follow as needed. Patient to follow up with [facility] as scheduled March 13.
[2024-03-04 14:20] LABS: Body Fluid Granulocytes 91 %; Body Fluid Lymphocytes 7 %; Body Fluid Macrophages 2 %
[2024-03-04 14:24] LABS: Body Fluid Second Tech JMK
[2024-03-04 15:00] VITALS: BP 145/63
--- NOTE | 2024-03-04 15:15 | CM ---
Patient chart reviewed.
cont Vanco, Suspected Septic L knee Joint
Prepatellar bursitis
Current with [facility]
Tentative OR tomorrow for I&D
Await PT/OT recommendations
PLAN: Await PT/OT recommendation
--- NOTE | 2024-03-04 15:31 | W.PN.ID1 ---
Date of Service
Date of Service: March 04, 2024
Today's Communication
continue vancomycin
Assessment / Plan
Suspected Septic L knee Joint
Prepatellar bursitis
Chronic steroid use
H/o multiple drug allergies
- blood cultures x2 recommended for suspected [place] septic joint - ordered
- MRI with suspected synovitis, unlikely to have drainable fluid collection
- s/p I&D of the prepatellar bursae
- wound culture s aureus
- appreciate orthopedics input
- continue vancomycin
- follow clinically
Chief Complaint
-: Other (suspected septic joint)
Subjective / Review of Systems
afebrile
bp stable
improved range of motion
less pain
Vital Signs / Physical Exam
Vital Signs
Vital Signs
Temp Pulse Resp BP Pulse Ox
97.6 F 70 16 160/71 93
03/04/24 07:00 03/04/24 08:51 03/04/24 07:16 03/04/24 08:51 03/04/24 07:00
Physical Exam
Constitutional: No Acute Distress
Cardiovascular: Regular Rate and S1/S2; Negative Murmur or Rub
Pulmonary: Clear and Symmetric; Negative Wheezes or Rales
Gastrointestinal: Soft, Non Tender, Non Distended and Normal Bowel Sounds
Musculoskeletal: Other (deferred dressing take down today at patient request - its painful)
Skin: Warm and Dry; Negative Rash or Jaundice
Objective Data
Lab Data
Lab Results
03/04/24 05:26
03/04/24 05:26
ESR Cancelled 03/03/24 07:35
Estimated Creat Clear 39 ml/min 03/04/24 05:26
Lactic Acid Cancelled 03/02/24 05:00
Total Bilirubin 0.5 mg/dl (0.2-1.3) 03/02/24 00:56
AST 24 U/L (14-36) 03/02/24 00:56
ALT 20 U/L (0-35) 03/02/24 00:56
Alkaline Phosphatase 62 U/L (38-126) 03/02/24 00:56
C-Reactive Protein Cancelled 03/03/24 07:35
Most recent labs reviewed.
Wound/abscess/other Cult Final 03/04/24-1044
Few Staph aureus MRSA
Isolation Precautions Required
Organism 1 Staph aureus MRSA
1. Staph aureus MRSA
M.I.C. RX
--------- ---
Amoxicillin/Potas. Clavulanate <=4/2 R
Ampicillin >8 R
Clindamycin <=0.5 S
Gentamicin >8 R
Erythromycin >4 R
Levofloxacin >4 R
Oxacillin >2 R
Tetracycline <=4 S
Trimethoprim/Sulfamethoxazole <=0.5/9.5 S
Vancomycin 1 S
Micro Results:
03/04/24 13:00 Anaerobic Culture - Pending
Joint Fluid
03/04/24 13:00 Body Fluid Culture - Pending
Joint Fluid Gram Stain - Pending
03/02/24 Unknown Wound Culture - Final
Abscess Staph aureus MRSA
Gram Stain - Final
03/02/24 01:51 Blood Culture - Preliminary
Blood/Venous No Growth in 48 hours- Final report to follow
03/02/24 15:54 Blood Culture - Preliminary
Blood/Venous No Growth in 24 hours- Final report to follow
Care Review
Plan reviewed with: Physician (Dr Michael - mri results)
[2024-03-04] MEDS: DULCOLAX 5 MG PO (16:34)
[2024-03-04] MEDS: DULCOLAX 10 MG PO (16:51)
--- NOTE | 2024-03-04 17:14 | W.PN.UPDATE ---
Update Note
Progress Note Update
PROCEDURE: Left knee Ultrasound Guided Arthrocentesis
MEDICATIONS INJECTED:
Bupivacaine 0.25% without epinephrine 125mg/50mL: 4cc
Ropivacaine 0.5% HCl 5mg/mL: 4cc
PROCEDURE DETAIL:
After verbal consent was obtained and laterality was confirmed, the patient was offered a basket assembler and declined. The left knee underwent a limited non-vascular ultrasound examination; see report. The site of injection was then identified utilizing
a linear transducer. The skin was then sterilized with alcohol and the needle introduced using a direct visualization linear approach. The needle was visible on the screen and placed intra-articular and as much fluid was aspirated as possible. Once
no more aspirate could be obtained, the needle was maintained and syringe removed, and a separate syringe with the above medications was then attached, needle revisualized on screen, and injected intra-articular. There was minimal bleeding. There
were no immediate side effects or adverse events and the patient was at baseline immediately following the procedure.
Appearance of fluid was of a dark brown/yellow murky cloudy with small amount of blood aspirate with 10 cc yielded. There did appear to be a large amount of synovitis inject positioning of the needle more into the lateral gutter for a yield of
fluid. There are multiple hyperechoic areas in the area of the quadricep tendon likely postoperative from remote repair
[2024-03-04] MEDS: LOVENOX 40 MG SC (17:38)
[2024-03-04] MEDS: SENOKOT-S 1 TABLET PO (20:56)
[2024-03-04 23:52] VITALS: BP 154/67
[2024-03-05] MEDS: VANCOCIN 150 IV (05:47)
--- NOTE | 2024-03-05 07:16 | W.PN.HOSP.TC ---
Today's Communication/Plan
-
cont abx as per ID
bowel regimen
eventual PT/OT eval when cleared as per orthopedic
pain control
Assessment / Plan
Assessment / Plan
Physical Exam
General: No acute distress appears comfortable at rest
HEENT: NormoCephalic, Anicteric, Moist mucous membranes and Atraumatic
Respiratory: Clear
Cardiac: S1/S2 and Regular Rhythm
GI: Soft, Non Tender, Non Distended and Normal Bowel Sounds
Musculoskeletal: No Clubbing, No Cyanosis, Edema, Left Lower Extremity and Edema, Right Lower Extremity
Skin: Dressing left knee clean dry intact
Neuro: AO x 3
Psych: Calm
83F spinal stenosis history of recurrent cellulitis in the past presents to the emergency department with left knee erythema, tenderness and swelling in the setting of previous skin irritation consistent with skin abscess. She is febrile with
leukocytosis suggestive of systemic inflammation. She is hemodynamically stable. Electrolytes and bicarb are within normal limits.
PLAN:
Cellulitis -patient with purulent cellulitis status post I&D. On Keflex PPX for skin infections at home and chronic prednisone.
Sepsis prepatellar bursitis (leukocytosis fever)
- wound culture sent, blood culture sent
- MRSA colonization
- treated empirically with vanc zosyn
- Infectious disease consult appreciated, cont with vanc, zosyn discontinued
- pain control, wound care
-Ortho eval appreciated bedside arthrocentesis performed, joint fluid culture ngtd, no plans for OR I&D at this time
-MRI left knee appreciated
Asthma - No acute exacerbation
- continue ICS/LABA
- continue methylprednisolone 4mg po daily chronic med
- prn albuterol
HTN Primary
- continue carvedilol 6.25 bid
- HCTZ 25 and ARB
Urinary retention s/p cath
-bladder scan protocol
Constipation
bowel regimen
DVT PPx - Lovenox
Code Status - Partial DNR, no CPR but Intubation is ok
Discussed with patient and patient's daughter Anabelle
I spent a total of 40 minutes with the patient or on the floor. More than 50% of this time involved counseling and coordination of care.
Anticipated Discharge: 24 - 48 hours
Subjective/Interval History
-
Date of Service: March 05, 2024
No acute distress appears comfortable at this time. Constipation persists but denies nausea vomiting. Endorses flatus
Objective Data
-
Labs:
Laboratory Results
03/05/24
06:00
WBC Pending
Hgb Pending
Hct Pending
Plt Count Pending
Sodium Pending
Potassium Pending
Chloride Pending
Carbon Dioxide Pending
BUN Pending
Creatinine Pending
Glucose Pending
Calcium Pending
Vital Signs:
Vital Signs
Temp Pulse Resp BP Pulse Ox
98.9 F 75 16 154/67 96
03/04/24 23:52 03/04/24 23:52 03/04/24 23:52 03/04/24 23:52 03/05/24 01:26
I&O
03/04/24 03/05/24 03/06/24
06:59 06:59 06:59
Intake Total 1350 / 1350 960 / 960
Output Total 450 / 450
Balance 1350 / 1350 510 / 510
[2024-03-05] MEDS: ADVAIR HFA 230/21 MCG INHALER 2 PUFF INH ×2 (07:18→20:01)
[2024-03-05 07:37] VITALS: BP 167/63
--- NOTE | 2024-03-05 08:26 | W.PN.UPDATE ---
Documented by User: Mary Le PA-C 03/05/24 08:29
Update Note
Progress Note Update
Ms. Teixeira is resting comfortably in bed this morning. She reports the pain in her left knee has been stable, and is improving slightly.
Directed exam of the left knee reveals linear incision over the anterior knee. Hue of erythema about the knee. Tenderness to palpation generally about the anterior knee. Pain with ROM. Calf soft and nontender. Neurovascularly intact distally.
Preliminary gram stain of synovial fluid with many WBC, no organisms.
Labs pending this AM.
83F left knee septic bursitis, possible septic joint
-Pending MRI at this time; ROM and clinical exam improving. Aspiration performed yesterday, cultures pending.
-We will plan to hold off on OR for now to await cultures from knee joint aspiration. I will keep her NPO for now while we await any updates from the lab.
--Pain control per primary.
--Currently on vanco per ID.
--Orthopedics will continue to follow.

Documented by User: Jayro Michael MD 03/05/24 10:39
Update Note
Progress Note Update
Ms. Teixeira is resting comfortably in bed this morning. She reports the pain in her left knee has been stable, and is improving slightly.
Directed exam of the left knee reveals linear incision over the anterior knee. Hue of erythema about the knee. Tenderness to palpation generally about the anterior knee. Pain with ROM. Calf soft and nontender. Neurovascularly intact distally.
Preliminary gram stain of synovial fluid with many WBC, no organisms.
Labs pending this AM.
83F left knee septic bursitis, possible septic joint
-Pending MRI at this time; ROM and clinical exam improving. Aspiration performed yesterday, cultures pending.
-We will plan to hold off on OR for now to await cultures from knee joint aspiration. I will keep her NPO for now while we await any updates from the lab.
--Pain control per primary.
--Currently on vanco per ID.
--Orthopedics will continue to follow.
I have seen and evaluated the patient in conjunction with Mary Le PA-C and agree with the assessment and plan. Jocelynn is clinically making improvements with regards to pain and she reports that overall she is feeling well and not systemically
ill. She is making improvements with her IV antibiotics. She has 2 sources for clinical pain in her knee right now with prepatellar abscess s/p I&D and partial quadriceps tendon tear. On her examination today, she has an intact extensor mechanism
and ROM is 0-70 degrees before moderate discomfort. Intra-articular cultures are currently negative. With multiple medical comorbidities and chronic steroid use which would make wound healing very difficult, I would not recommend operative
intervention on the knee unless cultures return as positive, she stops clinical improvement, or she starts to develop worsening symptoms. Pre-emptive surgery certainly could make her situation much worse. At this time, continued treatment with IV
antibiotics, per ID recommendations and warm soaks TID would be most appropriate course. We will continue to follow the patient clinically and the cultures that are pending. If cultures do return as positive, we will likely have no choice but to
perform I&D of the knee, despite significant risks associated with surgery and postoperative recovery. Hopefully this will not be necessary. Once her I&D site is healed, we will likely set her up with a knee immobilizer and PT.
[2024-03-05] MEDS: ORETIC 25 MG PO (08:30)
[2024-03-05] MEDS: MEDROL 4 MG PO (08:30)
[2024-03-05] MEDS: HYDROPHOR 1 APPLIC TOPICAL (08:31)
[2024-03-05] MEDS: COREG 6.25 MG PO ×2 (08:31→20:16)
[2024-03-05] MEDS: BENICAR 40 MG PO (08:31)
[2024-03-05] MEDS: SENOKOT-S 1 TABLET PO ×2 (08:31→20:16)
[2024-03-05 09:30] LABS: Hematocrit 33.5 % (37.0-47.0); Hemoglobin 10.7 g/dL (12.0-16.0); Mean Corp Hgb Conc. 31.9 g/dL (33.0-37.0); Mean Corpuscular Hgb 29.2 pg (27.0-31.0); Mean Corpuscular Volume 91.3 fL (81.0-99.0); Mean Platelet Volume 8.9 fL (7.4-10.4); Platelet Count 228 10^3/uL (130-400); Red Blood Cell Count 3.67 10^6/uL (4.20-5.40); White Blood Cell Count 11.7 10^3/uL (4.8-10.8)
[2024-03-05 09:41] LABS: Vancomycin Peak 13.7 ug/ml (18-26)
--- NOTE | 2024-03-05 11:39 | CM ---
Patient for I&D today.
Will await PT/OT recommendation
Will need to get authorization if SNF
PLAN: Await PT/OT recommendation post I&D
[2024-03-05 12:11] LABS: Blood Urea Nitrogen 22 mg/dl (7-17); Calcium 8.7 mg/dl (8.4-10.2); Carbon Dioxide 28 mmol/L (22-30); Chloride 100 mmol/L (98-107); Estimated Creatinine Clearance 50 ml/min; Glucose 77 mg/dl (70-99); Potassium 3.6 mmol/L (3.5-5.1); Sodium 140 mmol/L (135-145); eGFR > 60.00
--- NOTE | 2024-03-05 14:58 | PHA.VAN.FU ---
Vancomycin Assessment / Plan
- Assessment
Renal Function: Stable
WBC's are: Trending Down
In the past 24 hrs, patient has been: Afebrile
- Dosing Plan
Continue: Vanc 750mg Q24H
- Monitoring Plan
No level(s) ordered at this time: IV infiltrated this AM and dosing delayed
Monitoring Comments: will hold off on levels for now
- Follow Up
Pharmacy will continue to follow.
Vancomycin Follow UP
- -
Patient Age: 83
Patient Sex: Female
Vancomycin Day #: 4
Indication: Bone And Joint
Requesting Provider: Dr. Baljit Echols / [facility]
Pertinent Antimicrobial Allergies:
Doxycycline-Unknown reaction
Bactrim (sulfamethoxazole, trimethoprim)-swelling
Ofloxacin- unknown reaction. tolerates cipro
Height / Weight:
Height 5 ft 3 in
Actual Weight 63.1 kg
IBW in k.4
Adjusted BW in k.7
Pertinent Past Medical History: Recurrent cellulitis (chronic cephalexin), Asthma (chronic methylpred)
- Vital Signs / Lab Results
Temp Pulse Resp BP Pulse Ox
98.5 F 72 16 167/63 96
03/05/24 07:37 03/05/24 07:37 03/05/24 07:37 03/05/24 07:37 03/05/24 07:37
Lab Results - Hematology
03/03/24 03/04/24 03/05/24
05:20 05:26 09:02
WBC 18.4 H 14.3 H 11.7 H
Lab Results - Chemistry
03/03/24 03/04/24 03/05/24
05:20 05:26 09:02
BUN 26 H 28 H 22 H
Creatinine 1.0 0.9 0.7
Estimated Creat Clear 35 39 50
Microbiology Results
03/04/24 13:00 Body Fluid Culture - Preliminary
Joint Fluid No Growth After 18-24 Hours
Gram Stain - Preliminary
03/04/24 13:00 Anaerobic Culture - Preliminary
Joint Fluid Culture pending. Anaerobic cultures are examined after 3
days incubation. Additional information to follow.
03/02/24 01:51 Blood Culture - Preliminary
Blood/Venous No Growth in 72 hours- Final report to follow
03/02/24 15:54 Blood Culture - Preliminary
Blood/Venous No Growth in 48 hours- Final report to follow
03/02/24 Unknown Wound Culture - Final
Abscess Staph aureus MRSA
Gram Stain - Final
Therapeutic Drug Monitoring
Vancomycin Peak 13.7 ug/ml (18-26) L 03/05/24 09:02
[2024-03-05 15:03] VITALS: BP 138/101
[2024-03-05] MEDS: LOVENOX 40 MG SC (17:04)
--- NOTE | 2024-03-05 17:33 | W.PN.ID1 ---
Date of Service
Date of Service: March 05, 2024
Today's Communication
continue vancomycin
Assessment / Plan
Suspected Septic L knee Joint
Prepatellar bursitis
Chronic steroid use
H/o multiple drug allergies
- blood cultures x2 no growth to date
- MRI with suspected synovitis, unlikely to have drainable fluid collection
- s/p I&D of the prepatellar bursae
- prepatellar wound culture s aureus
- joint fluid no growth to date and cell count was not inflammatory
- appreciate orthopedics input
- continue vancomycin
- follow clinically
Chief Complaint
-: Other (suspected septic joint)
Subjective / Review of Systems
afebrile
bp stable
tolerating current therapies
Vital Signs / Physical Exam
Vital Signs
Vital Signs
Temp Pulse Resp BP Pulse Ox
98.2 F 78 16 138/101 96
03/05/24 15:03 03/05/24 15:03 03/05/24 15:03 03/05/24 15:03 03/05/24 15:03
Physical Exam
Constitutional: No Acute Distress
Cardiovascular: Regular Rate and S1/S2; Negative Murmur or Rub
Pulmonary: Clear and Symmetric; Negative Wheezes or Rales
Gastrointestinal: Soft, Non Tender, Non Distended and Normal Bowel Sounds
Skin: Warm and Dry; Negative Rash or Jaundice
Wound: Other (dressing clean, dry, intact)
Objective Data
Lab Data
Lab Results
03/05/24 09:02
03/05/24 09:02
ESR Cancelled 03/03/24 07:35
Estimated Creat Clear 50 ml/min 03/05/24 09:02
Lactic Acid Cancelled 03/02/24 05:00
Total Bilirubin 0.5 mg/dl (0.2-1.3) 03/02/24 00:56
AST 24 U/L (14-36) 03/02/24 00:56
ALT 20 U/L (0-35) 03/02/24 00:56
Alkaline Phosphatase 62 U/L (38-126) 03/02/24 00:56
C-Reactive Protein Cancelled 03/03/24 07:35
Most recent labs reviewed.
Micro Results:
03/02/24 15:54 Blood Culture - Preliminary
Blood/Venous No Growth in 72 hours- Final report to follow
03/04/24 13:00 Body Fluid Culture - Preliminary
Joint Fluid No Growth After 18-24 Hours
Gram Stain - Preliminary
03/04/24 13:00 Anaerobic Culture - Preliminary
Joint Fluid Culture pending. Anaerobic cultures are examined after 3
days incubation. Additional information to follow.
03/02/24 01:51 Blood Culture - Preliminary
Blood/Venous No Growth in 72 hours- Final report to follow
03/02/24 Unknown Wound Culture - Final
Abscess Staph aureus MRSA
Gram Stain - Final
Care Review
Plan reviewed with: Physician (Dr Michael - not planning surgery unless joint fluid positive)
[2024-03-05 23:17] VITALS: BP 142/65
[2024-03-06] MEDS: VANCOCIN 150 IV (06:25)
[2024-03-06 06:44] LABS: Hematocrit 32.4 % (37.0-47.0); Hemoglobin 10.7 g/dL (12.0-16.0); Mean Corpuscular Hgb 29.8 pg (27.0-31.0); Mean Corpuscular Volume 90.3 fL (81.0-99.0); Mean Platelet Volume 9.1 fL (7.4-10.4); Platelet Count 260 10^3/uL (130-400); Red Blood Cell Count 3.59 10^6/uL (4.20-5.40); Red Cell Dist. Width 14.8 % (11.5-14.5); White Blood Cell Count 13.2 10^3/uL (4.8-10.8)
[2024-03-06 07:15] VITALS: BP 151/65
[2024-03-06 07:17] LABS: Blood Urea Nitrogen 29 mg/dl (7-17); Calcium 8.9 mg/dl (8.4-10.2); Carbon Dioxide 26 mmol/L (22-30); Chloride 102 mmol/L (98-107); Estimated Creatinine Clearance 44 ml/min; Glucose 80 mg/dl (70-99); Potassium 3.6 mmol/L (3.5-5.1); Sodium 141 mmol/L (135-145); eGFR > 60.00
--- NOTE | 2024-03-06 07:18 | W.PN.UPDATE ---
Update Note
Progress Note Update
Patient seen and examined this morning. She relays that her left knee pain seems to be improving. She is afebrile and WBCs are trending down. Nursing has been doing daily dressing changes and wound care has seen her as well. MRI of the left knee
showed cellulitis/prepatellar bursitis (positive cultures for MRSA). There was left knee quadriceps tendon near full-thickness tearing noted. She has had prior left quadriceps tendon repair years ago. Cultures from left knee aspiration are still
pending. Left knee exam shows purulent drainage on the dressing. Minimal erythema and no warmth over the anterior aspect of the knee. No fluid accumulation within the prepatellar bursa. Trace knee effusion noted without pain to palpation.
Passive motion 0 to 90 degrees without significant pain. She is able to straight leg raise. No calf discomfort. Distal neurovascular was intact. Patient does not appear septic today. She is going to continue with antibiotics per ID and the
dressing changes per nursing. I am going to have her utilize knee immobilizer to limit motion across the prepatellar area and protect the quadriceps tendon. Orthopedics will continue to follow patient. If cultures become positive within the knee
joint, I&D might need to be undertaken. For today she can eat but I will make her n.p.o. after midnight and check cultures tomorrow. I was able to talk with her daughter Anabelle and give her an update.
--- NOTE | 2024-03-06 07:27 | W.PN.HOSP.TC ---
Today's Communication/Plan
-
cont abx as per ID
wound care
PT/OT
Assessment / Plan
Assessment / Plan
Physical Exam
General: No acute distress appears comfortable at rest
HEENT: NormoCephalic, Anicteric, Moist mucous membranes and Atraumatic
Respiratory: Clear
Cardiac: S1/S2 and Regular Rhythm
GI: Soft, Non Tender, Non Distended and Normal Bowel Sounds
Musculoskeletal: No Clubbing, No Cyanosis, Edema, Left Lower Extremity and Edema, Right Lower Extremity
Skin: Dressing left knee clean dry intact
Neuro: AO x 3
Psych: Calm
83F spinal stenosis history of recurrent cellulitis in the past presents to the emergency department with left knee erythema, tenderness and swelling in the setting of previous skin irritation consistent with skin abscess. She is febrile with
leukocytosis suggestive of systemic inflammation. She is hemodynamically stable. Electrolytes and bicarb are within normal limits.
PLAN:
Cellulitis -patient with purulent cellulitis status post I&D. On Keflex PPX for skin infections at home and chronic prednisone.
Sepsis prepatellar bursitis (leukocytosis fever)
- wound culture sent, blood culture sent
- MRSA colonization
- treated empirically with vanc zosyn
- Infectious disease consult appreciated, cont with vanc, zosyn discontinued, doxycycline added
- pain control, wound care
-Ortho eval appreciated bedside arthrocentesis performed, joint fluid culture ngtd, no plans for OR I&D at this time
-MRI left knee appreciated
-PT/OT eval
Asthma - No acute exacerbation
- continue ICS/LABA
- continue methylprednisolone 4mg po daily chronic med
- prn albuterol
HTN Primary
- continue carvedilol 6.25 bid
- HCTZ 25 and ARB
Urinary retention s/p cath
-bladder scan protocol
Constipation
bowel regimen
DVT PPx - Lovenox
Code Status - Partial DNR, no CPR but Intubation is ok
Discussed with patient and patient's daughter Anabelle
I spent a total of 40 minutes with the patient or on the floor. More than 50% of this time involved counseling and coordination of care.
Anticipated Discharge: 24 - 48 hours
Subjective/Interval History
-
Date of Service: March 06, 2024
reports resolution of constipation. Overall reports feeling well. Left knee pain swelling improved.
Objective Data
-
Labs:
Laboratory Results
03/06/24
05:53
WBC 13.2 H
Hgb 10.7 L
Hct 32.4 L
Plt Count 260
Sodium 141
Potassium 3.6
Chloride 102
Carbon Dioxide 26
BUN 29 H
Creatinine 0.8
Glucose 80
Calcium 8.9
Vital Signs:
Vital Signs
Temp Pulse Resp BP Pulse Ox
98.8 F 72 16 151/65 98
03/06/24 07:15 03/06/24 07:15 03/06/24 07:15 03/06/24 07:15 03/06/24 07:15
I&O
03/05/24 03/06/24 03/07/24
06:59 06:59 06:59
Intake Total 960 / 960 1360 / 1360
Output Total 450 / 450 100 / 100
Balance 510 / 510 1260 / 1260
[2024-03-06] MEDS: ADVAIR HFA 230/21 MCG INHALER 2 PUFF INH ×2 (07:28→19:58)
[2024-03-06] MEDS: BENICAR 40 MG PO (08:39)
[2024-03-06] MEDS: ORETIC 25 MG PO (08:40)
[2024-03-06] MEDS: SENOKOT-S 1 TABLET PO ×2 (08:40→19:32)
[2024-03-06] MEDS: COREG 6.25 MG PO ×2 (08:41→19:32)
[2024-03-06] MEDS: HYDROPHOR 1 APPLIC TOPICAL (08:42)
[2024-03-06] MEDS: MEDROL 4 MG PO (08:50)
--- NOTE | 2024-03-06 11:50 | WOUNDNOTE ---
L UPPER BUTTOCKS AND LOWER
--- NOTE | 2024-03-06 11:52 | WOUNDNOTE ---
WON RN NOTE: Followed up today with assist from skilled nursing facility counselor. L knee less red and swollen, soft periwound, large drainage, no odor. Dry dressing changed and renita wrap re applied. L upper and lower buttock ulcers dryer and more defined, has
moderate yellow slough at base, will order honey gel. Will confirm with hospitalist and update nurse Silas. Patient remains on air mattress with turning schedule. Patient assists with turning. Called [facility] for honey gel, skilled nursing facility counselor made aware. Will
update care plan and follow as needed.
--- NOTE | 2024-03-06 13:46 | CM ---
Met with patient and spoke to daughter.
I&D on hold today.
Continues on IV Vanco
Patient was current with [facility].
Await PT/OT rec.
Daughter/patient states they would like to resume [facility] and prefer not to go to SNF.
PLAN: Discharge when medically stable, [facility] vs. SNF
--- NOTE | 2024-03-06 14:00 | W.PN.ID1 ---
Date of Service
Date of Service: March 06, 2024
Today's Communication
- add doxycycline - follow clinically for ADR, based on history it seems likely that she may tolerate the drug
- continue vancomycin for today, if no growth in the synovial fluid by tomorrow (72 hours) then would stop vancomycin and continue doxycycline x4 more weeks
- will schedule follow up in my clinic in about 3 weeks
- follow clinically
Assessment / Plan
Suspected Septic L knee Joint
Prepatellar bursitis
Chronic steroid use
H/o multiple drug allergies
- blood cultures x2 no growth to date
- MRI with suspected synovitis, unlikely to have drainable fluid collection
- s/p I&D of the prepatellar bursae cultures with MRSA
- joint fluid no growth to date and cell count was not inflammatory
- appreciate orthopedics input
- add doxycycline - follow clinically for ADR, based on history it seems likely that she may tolerate the drug
- continue vancomycin for today, if no growth in the synovial fluid by tomorrow (72 hours) then would stop vancomycin and continue doxycycline x4 more weeks
- will schedule follow up in my clinic in about 3 weeks
- follow clinically
Chief Complaint
-: Other (prepatellar bursitis due to MRSA)
Subjective / Review of Systems
afebrile
still with expected knee pain
synovial fluid remains no growth
patient recalle the 'doxycycline allergy' states she felt dizzy 'like I was going to have a seizure' it was more than 10 years ago, went to the ER, they held the doxycycline, she didnt require epinephrine, there was no difficulty with lip/tongue
swelling or breathing
she agrees to a trial of doxycycline here where she can be observed
Vital Signs / Physical Exam
Vital Signs
Vital Signs
Temp Pulse Resp BP Pulse Ox
98.8 F 72 16 151/65 94
03/06/24 07:15 03/06/24 08:41 03/06/24 07:32 03/06/24 08:41 03/06/24 07:32
Physical Exam
Constitutional: No Acute Distress
Cardiovascular: Regular Rate and S1/S2; Negative Murmur or Rub
Pulmonary: Clear and Symmetric; Negative Wheezes or Rales
Gastrointestinal: Soft, Non Tender, Non Distended and Normal Bowel Sounds
Musculoskeletal: Other (dressing take down deferred)
Skin: Warm and Dry; Negative Rash or Jaundice
Objective Data
Lab Data
Lab Results
03/06/24 05:53
03/06/24 05:53
ESR Cancelled 03/03/24 07:35
Estimated Creat Clear 44 ml/min 03/06/24 05:53
Lactic Acid Cancelled 03/02/24 05:00
Total Bilirubin 0.5 mg/dl (0.2-1.3) 03/02/24 00:56
AST 24 U/L (14-36) 03/02/24 00:56
ALT 20 U/L (0-35) 03/02/24 00:56
Alkaline Phosphatase 62 U/L (38-126) 03/02/24 00:56
C-Reactive Protein Cancelled 03/03/24 07:35
Most recent labs reviewed.
Micro Results:
03/04/24 13:00 Body Fluid Culture - Preliminary
Joint Fluid No Growth After 48 Hours
Gram Stain - Preliminary
03/04/24 13:00 Anaerobic Culture - Preliminary
Joint Fluid Culture pending. Anaerobic cultures are examined after 3
days incubation. Additional information to follow.
03/02/24 01:51 Blood Culture - Preliminary
Blood/Venous No Growth in 4 days- Final report to follow
03/02/24 15:54 Blood Culture - Preliminary
Blood/Venous No Growth in 72 hours- Final report to follow
03/02/24 Unknown Wound Culture - Final
Abscess Staph aureus MRSA
Gram Stain - Final
[2024-03-06] MEDS: VIBRAMYCIN 100 MG PO ×2 (14:14→22:00)
[2024-03-06 15:11] VITALS: BP 135/60
[2024-03-06 15:14] VITALS: BP 135/60; PULSE 74; O2SAT 92
[2024-03-06 15:15] VITALS: BP 135/60; PULSE 75
--- NOTE | 2024-03-06 15:19 | PHA.VAN.FU ---
Vancomycin Assessment / Plan
- Assessment
Renal Function: Stable
WBC's are: Trending Up
In the past 24 hrs, patient has been: Afebrile
Concomitant Antimicrobials: doxycycline
- Dosing Plan
Continue: Vanc 750mg Q24H
- Monitoring Plan
No level(s) ordered at this time: holding off levels pending duration plans with culture results
- Follow Up
Pharmacy will continue to follow.
Vancomycin Follow UP
- -
Patient Age: 83
Patient Sex: Female
Vancomycin Day #: 5
Indication: Bone And Joint
Requesting Provider: Dr. Baljit Echols / [facility]
Pertinent Antimicrobial Allergies:
Doxycycline-Unknown reaction
Bactrim (sulfamethoxazole, trimethoprim)-swelling
Ofloxacin- unknown reaction. tolerates cipro
Height / Weight:
Height 5 ft 3 in
Actual Weight 63.1 kg
IBW in k.4
Adjusted BW in k.7
Pertinent Past Medical History: Recurrent cellulitis (chronic cephalexin), Asthma (chronic methylpred)
- Vital Signs / Lab Results
Temp Pulse Resp BP Pulse Ox
98.5 F 74 16 135/60 92
03/06/24 15:11 03/06/24 15:11 03/06/24 15:11 03/06/24 15:11 03/06/24 15:11
Lab Results - Hematology
03/04/24 03/05/24 03/06/24
05:26 09:02 05:53
WBC 14.3 H 11.7 H 13.2 H
Lab Results - Chemistry
03/04/24 03/05/24 03/06/24
05:26 09:02 05:53
BUN 28 H 22 H 29 H
Creatinine 0.9 0.7 0.8
Estimated Creat Clear 39 50 44
Microbiology Results
03/04/24 13:00 Body Fluid Culture - Preliminary
Joint Fluid No Growth After 48 Hours
Gram Stain - Preliminary
03/04/24 13:00 Anaerobic Culture - Preliminary
Joint Fluid Culture pending. Anaerobic cultures are examined after 3
days incubation. Additional information to follow.
03/02/24 01:51 Blood Culture - Preliminary
Blood/Venous No Growth in 4 days- Final report to follow
03/02/24 15:54 Blood Culture - Preliminary
Blood/Venous No Growth in 72 hours- Final report to follow
Therapeutic Drug Monitoring
Vancomycin Peak 13.7 ug/ml (18-26) L 03/05/24 09:02
[2024-03-06] MEDS: LOVENOX 40 MG SC (17:11)
[2024-03-06 23:19] VITALS: BP 165/72
[2024-03-07] MEDS: VANCOCIN 150 IV (06:05)
--- NOTE | 2024-03-07 07:30 | W.PN.HOSP.TC ---
Today's Communication/Plan
-
npo after midnigh for or tomorrow w/ orthopedic
cont pain control
PT/OT
abx
wound care
Assessment / Plan
Assessment / Plan
Physical Exam
General: No acute distress appears comfortable at rest
HEENT: NormoCephalic, Anicteric, Moist mucous membranes and Atraumatic
Respiratory: Clear
Cardiac: S1/S2 and Regular Rhythm
GI: Soft, Non Tender, Non Distended and Normal Bowel Sounds
Musculoskeletal: No Clubbing, No Cyanosis, Edema, Left Lower Extremity and Edema, Right Lower Extremity
Skin: Dressing left knee clean dry intact
Neuro: AO x 3
Psych: Calm
83F spinal stenosis history of recurrent cellulitis in the past presents to the emergency department with left knee erythema, tenderness and swelling in the setting of previous skin irritation consistent with skin abscess. She is febrile with
leukocytosis suggestive of systemic inflammation. She is hemodynamically stable. Electrolytes and bicarb are within normal limits.
PLAN:
Cellulitis -patient with purulent cellulitis status post I&D. On Keflex PPX for skin infections at home and chronic prednisone.
Sepsis prepatellar bursitis (leukocytosis fever)
- wound culture sent, blood culture sent
- MRSA colonization
- treated empirically with vanc zosyn
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
- pain control, wound care
-Ortho eval appreciated bedside arthrocentesis performed, joint fluid culture +S aureus, plans for OR tomorrow Left Knee arthroscopic vs open I&D, npo after midnight
-Patient is at risk surgical complication but risk is not prohibitive.
-MRI left knee appreciated
-PT/OT eval appreciated SNF rehab
Asthma - No acute exacerbation
- continue ICS/LABA
- continue methylprednisolone 4mg po daily chronic med
- prn albuterol
HTN Primary
- continue carvedilol 6.25 bid
- HCTZ 25 and ARB
Urinary retention s/p cath
-bladder scan protocol
Constipation
bowel regimen
DVT PPx - Lovenox
Code Status - Partial DNR, no CPR but Intubation is ok
Discussed with patient and patient's daughter Anabelle
I spent a total of 40 minutes with the patient or on the floor. More than 50% of this time involved counseling and coordination of care.
Anticipated Discharge: 24 - 48 hours
Subjective/Interval History
-
Date of Service: March 07, 2024
No acute distress appears comfortable at this time.
Objective Data
-
Labs:
Laboratory Results
03/07/24
06:04
WBC Pending
Hgb Pending
Hct Pending
Plt Count Pending
Sodium Pending
Potassium Pending
Chloride Pending
Carbon Dioxide Pending
BUN Pending
Creatinine Pending
Glucose Pending
Calcium Pending
Vital Signs:
Vital Signs
Temp Pulse Resp BP Pulse Ox
98.5 F 70 16 165/72 94
03/06/24 23:19 03/06/24 23:19 03/06/24 23:19 03/06/24 23:19 03/07/24 01:48
I&O
03/06/24 03/07/24 03/08/24
06:59 06:59 06:59
Intake Total 1360 / 1360 1620 / 1620
Output Total 100 / 100 200 / 200
Balance 1260 / 1260 1420 / 1420
[2024-03-07 07:32] LABS: Hematocrit 33.6 % (37.0-47.0); Hemoglobin 11.3 g/dL (12.0-16.0); Mean Corp Hgb Conc. 33.6 g/dL (33.0-37.0); Mean Corpuscular Hgb 31.2 pg (27.0-31.0); Mean Corpuscular Volume 92.8 fL (81.0-99.0); Mean Platelet Volume 8.9 fL (7.4-10.4); Platelet Count 286 10^3/uL (130-400); Red Blood Cell Count 3.62 10^6/uL (4.20-5.40); Red Cell Dist. Width 14.9 % (11.5-14.5); White Blood Cell Count 13.9 10^3/uL (4.8-10.8)
[2024-03-07] MEDS: ADVAIR HFA 230/21 MCG INHALER 2 PUFF INH ×2 (07:41→19:35)
[2024-03-07 07:57] VITALS: BP 185/82
[2024-03-07] MEDS: COREG 6.25 MG PO ×2 (08:07→20:27)
[2024-03-07] MEDS: SENOKOT-S 1 TABLET PO ×2 (08:07→20:20)
[2024-03-07 08:08] LABS: Blood Urea Nitrogen 31 mg/dl (7-17); Calcium 8.9 mg/dl (8.4-10.2); Carbon Dioxide 26 mmol/L (22-30); Chloride 102 mmol/L (98-107); Estimated Creatinine Clearance 44 ml/min; Glucose 74 mg/dl (70-99); Potassium 3.4 mmol/L (3.5-5.1); Sodium 140 mmol/L (135-145); eGFR > 60.00
[2024-03-07] MEDS: BENICAR 40 MG PO (08:08)
[2024-03-07] MEDS: ORETIC 25 MG PO (08:08)
[2024-03-07] MEDS: MEDROL 4 MG PO (08:08)
[2024-03-07] MEDS: VIBRAMYCIN 100 MG PO (08:08)
[2024-03-07] MEDS: HYDROPHOR 1 APPLIC TOPICAL (08:09)
--- NOTE | 2024-03-07 10:00 | W.PN.ID1 ---
Addendum entered and electronically signed by Alicia Little MD 03/07/24 14:37:
Left knee septic arthritis.
Left knee joint fluid culture now positive for Staph aureus
DC linezolid (has not received yet).
Continue IV Vancomycin (d7).
Ortho evaluation for washout.
Cancel discharge home today.
GURPREET Edwards
Original Note:
Date of Service
Date of Service: March 07, 2024
Today's Communication
- Treat with linezolid 600mg po bid through 05/05/24.
- Hold tramadol while on linezolid.
- Follow CBC in 2 weeks (linezolid can suppress bone marrow).
- Discussed avoidance of tyramine-rich foods while on linezolid; avoid aged and fermented foods including but not limited to aged cheese, wine, beer, cured meats (salami, pepperonie), saurkraut, kimchi, pickled foods, citrus.
Assessment / Plan
Possible Septic L knee Joint
Prepatellar left bursitis
Chronic steroid use
H/o multiple drug allergies
- blood cultures x2 no growth to date
- MRI with suspected synovitis, unlikely to have drainable fluid collection
- s/p I&D of the prepatellar bursae cultures with MRSA
- joint fluid no growth to date and cell count was not inflammatory
- appreciate orthopedics input
- DC doxycycline. 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
- Treat with linezolid 600mg po bid through 05/05/24.
- Hold tramadol while on linezolid.
- Follow CBC in 2 weeks (linezolid can suppress bone marrow).
- Discussed avoidance of tyramine-rich foods while on linezolid; avoid aged and fermented foods including but not limited to aged cheese, wine, beer, cured meats (salami, pepperonie), saurkraut, kimchi, pickled foods, citrus.
- Can dc vancomycin (d7) at time of discharge.
- Follow up with Dr. Lemon in about 2- 3 weeks
Chief Complaint
-: Other (prepatellar bursitis due to MRSA)
Subjective / Review of Systems
+ nausea today.
Vital Signs / Physical Exam
Vital Signs
Vital Signs
Temp Pulse Resp BP Pulse Ox
98.4 F 75 18 185/82 95
03/07/24 07:57 03/07/24 08:08 03/07/24 07:57 03/07/24 08:08 03/07/24 07:57
Physical Exam
Constitutional: No Acute Distress
Pulmonary: Clear
Gastrointestinal: Soft, Non Tender, Non Distended and Normal Bowel Sounds
Skin: Negative Rash
Neurological: AO x 3
Objective Data
Lab Data
Lab Results
03/07/24 06:04
03/07/24 06:04
ESR Cancelled 03/03/24 07:35
Estimated Creat Clear 44 ml/min 03/07/24 06:04
Lactic Acid Cancelled 03/02/24 05:00
Total Bilirubin 0.5 mg/dl (0.2-1.3) 03/02/24 00:56
AST 24 U/L (14-36) 03/02/24 00:56
ALT 20 U/L (0-35) 03/02/24 00:56
Alkaline Phosphatase 62 U/L (38-126) 03/02/24 00:56
C-Reactive Protein Cancelled 03/03/24 07:35
Most recent labs reviewed.
Micro Results:
03/02/24 01:51 Blood Culture - Final
Blood/Venous No Growth - Final Report
03/02/24 15:54 Blood Culture - Preliminary
Blood/Venous No Growth in 4 days- Final report to follow
03/04/24 13:00 Body Fluid Culture - Preliminary
Joint Fluid No Growth After 48 Hours
Gram Stain - Preliminary
03/04/24 13:00 Anaerobic Culture - Preliminary
Joint Fluid Culture pending. Anaerobic cultures are examined after 3
days incubation. Additional information to follow.
03/02/24 Unknown Wound Culture - Final
Abscess Staph aureus MRSA
Gram Stain - Final
Care Review
Plan reviewed with: Physician (Dr. Edwards)
[2024-03-07 11:00] VITALS: BP 135/56
[2024-03-07] MEDS: KCL 40 MEQ PO (11:39)
--- NOTE | 2024-03-07 12:58 | W.PN.UPDATE ---
Update Note
Progress Note Update
83M with left knee septic bursitis, s/p left knee joint aspiration with NGTD on cultures
-recommend maintain knee extension to allow her incision to heal; utilize knee immobilizer when OOB; may take breaks from it when rested and knee extended. Once the incisional area heals may perform knee flexion. Can perform straight leg raises to
avoid quad atrophy with PT. WBAT with assistive devices.
discharge planning.
-continue abx and wound care management as per ID and wound care
-Orthopedic surgery will follow peripherally at this time.
--- NOTE | 2024-03-07 14:30 | W.PN.UPDATE ---
Update Note
Progress Note Update
Left knee septic arthritis.
Left knee joint fluid culture now positive for Staph aureus
DC linezolid (has not received yet).
Continue IV Vancomycin (d7).
Ortho evaluation for washout.
Cancel discharge home today.
D/W Dr. Edwards and Adrián Lala.
--- NOTE | 2024-03-07 14:49 | CM ---
Spoke with daughter Anabelle [phone]
PT recommending SNF - Current with [facility]
Options of SNF reviewed with daughter who will discuss with her mom and make a decision.
Will check medicare.gov care compare
Daughter will get back to CM regarding referrals to place in [facility].
PLAN: Discharge when stable, SNF vs. [facility]
[2024-03-07 14:50] VITALS: BMI 24.6
[2024-03-07 15:15] VITALS: BP 150/58
--- NOTE | 2024-03-07 15:16 | PHA.VAN.FU ---
Vancomycin Assessment / Plan
- Assessment
Renal Function: Stable
WBC's are: Stable
In the past 24 hrs, patient has been: Afebrile
- Dosing Plan
Continue: Vanc 750mg Q24H
- Monitoring Plan
Peak Level: 03/08 08:30
Trough Level: 03/09 05:30
Monitoring Comments: levels to be drawn after 7th maintenance dose
- Follow Up
Pharmacy will continue to follow.
Vancomycin Follow UP
- -
Patient Age: 83
Patient Sex: Female
Vancomycin Day #: 6
Indication: Bone And Joint
Requesting Provider: Dr. Baljit Echols / [facility]
Pertinent Antimicrobial Allergies:
Doxycycline-Unknown reaction
Bactrim (sulfamethoxazole, trimethoprim)-swelling
Ofloxacin- unknown reaction. tolerates cipro
Height / Weight:
Height 5 ft 3 in
Actual Weight 63.1 kg
IBW in k.4
Adjusted BW in k.7
Pertinent Past Medical History: Recurrent cellulitis (chronic cephalexin), Asthma (chronic methylpred)
- Vital Signs / Lab Results
Temp Pulse Resp BP Pulse Ox
98.4 F 77 16 135/56 96
03/07/24 11:00 03/07/24 11:00 03/07/24 11:00 03/07/24 11:00 03/07/24 11:00
Lab Results - Hematology
03/05/24 03/06/24 03/07/24
09:02 05:53 06:04
WBC 11.7 H 13.2 H 13.9 H
Lab Results - Chemistry
03/05/24 03/06/24 03/07/24
09:02 05:53 06:04
BUN 22 H 29 H 31 H
Creatinine 0.7 0.8 0.8
Estimated Creat Clear 50 44 44
Microbiology Results
03/04/24 13:00 Anaerobic Culture - Preliminary
Joint Fluid NO ANAEROBES ISOLATED
03/04/24 13:00 Body Fluid Culture - Preliminary
Joint Fluid Staphylococcus aureus
Gram Stain - Preliminary
03/02/24 01:51 Blood Culture - Final
Blood/Venous No Growth - Final Report
03/02/24 15:54 Blood Culture - Preliminary
Blood/Venous No Growth in 4 days- Final report to follow
Therapeutic Drug Monitoring
Vancomycin Peak 13.7 ug/ml (18-26) L 03/05/24 09:02
[2024-03-07 16:09] VITALS: BP 150/58; PULSE 68; O2SAT 97
--- NOTE | 2024-03-07 17:14 | W.PN.UPDATE ---
Update Note
Progress Note Update
joint cultures later showing positive for staph aureus
-plan for OR tomorrow pending medical clearance/optimization
-NPO @ [place]
[2024-03-07] MEDS: LOVENOX 40 MG SC (17:51)
[2024-03-07] MEDS: ULTRAM 50 MG PO (21:15)
[2024-03-07 23:02] VITALS: BP 122/48
[2024-03-08] VITALS (15 sets, daily range): BP systolic 87–177; BP diastolic 46–76
[2024-03-08] MEDS: VANCOCIN 150 IV (05:59)
--- NOTE | 2024-03-08 06:55 | PTCARENOTE ---
Patient's IV site leaking; Vanco infusion stopped; VAT notified; will pass along in shift report.
--- NOTE | 2024-03-08 07:36 | W.PN.HOSP.TC ---
Today's Communication/Plan
-
Cont abx as per ID
follow cultures
wound care
WBAT with left knee immobliizer at all times
Assessment / Plan
Assessment / Plan
Physical Exam
General: No acute distress appears comfortable at rest
HEENT: NormoCephalic, Anicteric, Moist mucous membranes and Atraumatic
Respiratory: Clear
Cardiac: S1/S2 and Regular Rhythm
GI: Soft, Non Tender, Non Distended and Normal Bowel Sounds
Musculoskeletal: No Clubbing, No Cyanosis, Edema, Left Lower Extremity and Edema, Right Lower Extremity
Skin: Dressing left knee clean dry intact
Neuro: AO x 3
Psych: Calm
83F spinal stenosis history of recurrent cellulitis in the past presents to the emergency department with left knee erythema, tenderness and swelling in the setting of previous skin irritation consistent with skin abscess. She is febrile with
leukocytosis suggestive of systemic inflammation. She is hemodynamically stable. Electrolytes and bicarb are within normal limits.
PLAN:
Cellulitis -patient with purulent cellulitis status post I&D. On Keflex PPX for skin infections at home and chronic prednisone.
Sepsis prepatellar bursitis (leukocytosis fever)
Left Septic Knee
Left Knee Subq abscess
Left medial and lateral meniscus tears
- wound culture sent, blood culture sent
- MRSA colonization
- treated empirically with vanc zosyn
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
- pain control, wound care
-Ortho eval appreciated bedside arthrocentesis performed, joint fluid culture +S aureus, s/p Left Knee open I&D 03/08 with synovectomy partial medial lateral meniscectomies, tolerated procedure well
-WBAT in knee immobilizer at all times LLE
-MRI left knee appreciated
-PT/OT eval appreciated SNF rehab
Left Partial Full-thickness Quadriceps Tear
-nonoperative mgmt as per Orthopedic
Asthma - No acute exacerbation
- continue ICS/LABA
- continue methylprednisolone 4mg po daily chronic med
- prn albuterol
HTN Primary
- continue carvedilol 6.25 bid
- HCTZ 25 and ARB
Urinary retention s/p cath
-bladder scan protocol
Constipation
bowel regimen
DVT PPx - Lovenox
Code Status - Partial DNR, no CPR but Intubation is ok
Discussed with patient and patient's daughter Anabelle
I spent a total of 50 minutes with the patient or on the floor. More than 50% of this time involved counseling and coordination of care.
Anticipated Discharge: 24 - 48 hours
Subjective/Interval History
-
Date of Service: March 08, 2024
s/p OR I&D w/ orthopedic, reports overall feeling well following pain medication administration.
Objective Data
-
Labs:
Laboratory Results
03/08/24
06:00
WBC Pending
Hgb Pending
Hct Pending
Plt Count Pending
Sodium Pending
Potassium Pending
Chloride Pending
Carbon Dioxide Pending
BUN Pending
Creatinine Pending
Glucose Pending
Calcium Pending
Vital Signs:
Vital Signs
Temp Pulse Resp BP Pulse Ox
99.1 F 68 18 122/48 96
03/07/24 23:02 03/07/24 23:02 03/07/24 23:02 03/07/24 23:02 03/07/24 23:02
I&O
03/07/24 03/08/24 03/09/24
06:59 06:59 06:59
Intake Total 1620 / 1620 630 / 630
Output Total 200 / 200 225 / 225
Balance 1420 / 1420 405 / 405
[2024-03-08] MEDS: ADVAIR HFA 230/21 MCG INHALER INH (07:41)
[2024-03-08] MEDS: BENICAR PO (08:00)
[2024-03-08] MEDS: ORETIC PO (08:00)
[2024-03-08] MEDS: COREG PO (08:00)
[2024-03-08] MEDS: SENOKOT-S PO (08:48)
[2024-03-08] MEDS: HYDROPHOR TOPICAL (08:48)
--- NOTE | 2024-03-08 09:28 | PHA.VAN.FU ---
Addendum entered and electronically signed by Kemar Romero RP 03/08/24 12:05:
called lab patient was not available at 1000 for blood draw, nurse called later at 1200 to draw peak, informed that it was past the 3 hr window and I would reorder for tomorrow
Addendum entered and electronically signed by Kemar Romero RP 03/08/24 09:35:
peak not drawn yet, canceled schedule peak and ordered it stat
Original Note:
Vancomycin Assessment / Plan
- Assessment
Renal Function: Stable
In the past 24 hrs, patient has been: Afebrile
- Dosing Plan
Continue: 750MG Q24H
- Monitoring Plan
Peak Level: 03/08 @0830
Trough Level: 03/09 @0530
- Follow Up
Pharmacy will continue to follow.
Vancomycin Follow UP
- -
Patient Age: 83
Patient Sex: Female
Vancomycin Day #: 6
Indication: Bone And Joint
Requesting Provider: Dr. Baljit Echols / [facility]
Pertinent Antimicrobial Allergies:
Doxycycline-Unknown reaction
Bactrim (sulfamethoxazole, trimethoprim)-swelling
Ofloxacin- unknown reaction. tolerates cipro
Height / Weight:
Height 5 ft 3 in
Actual Weight 63.1 kg
IBW in k.4
Adjusted BW in k.7
Pertinent Past Medical History: Recurrent cellulitis (chronic cephalexin), Asthma (chronic methylpred)
- Vital Signs / Lab Results
Temp Pulse Resp BP Pulse Ox
97.9 F 63 16 154/61 95
03/08/24 07:00 03/08/24 07:00 03/08/24 07:00 03/08/24 07:00 03/08/24 07:00
Lab Results - Hematology
03/05/24 03/06/24 03/07/24
09:02 05:53 06:04
WBC 11.7 H 13.2 H 13.9 H
Lab Results - Chemistry
03/05/24 03/06/24 03/07/24
09:02 05:53 06:04
BUN 22 H 29 H 31 H
Creatinine 0.7 0.8 0.8
Estimated Creat Clear 50 44 44
Microbiology Results
03/04/24 13:00 Body Fluid Culture - Preliminary
Joint Fluid Staph aureus MRSA
Gram Stain - Preliminary
03/02/24 15:54 Blood Culture - Final
Blood/Venous No Growth - Final Report
03/04/24 13:00 Anaerobic Culture - Preliminary
Joint Fluid NO ANAEROBES ISOLATED
03/02/24 01:51 Blood Culture - Final
Blood/Venous No Growth - Final Report
Therapeutic Drug Monitoring
Vancomycin Peak 13.7 ug/ml (18-26) L 03/05/24 09:02
[2024-03-08] MEDS: SUBLIMAZE 50 MCG IV (09:59)
[2024-03-08] MEDS: SUBLIMAZE 25 MCG IV ×2 (10:14→10:55)
[2024-03-08 12:25] LABS: Hematocrit 35.2 % (37.0-47.0); Hemoglobin 11.5 g/dL (12.0-16.0); Mean Corp Hgb Conc. 32.7 g/dL (33.0-37.0); Mean Corpuscular Volume 91.9 fL (81.0-99.0); Mean Platelet Volume 8.9 fL (7.4-10.4); Platelet Count 320 10^3/uL (130-400); Red Blood Cell Count 3.83 10^6/uL (4.20-5.40); Red Cell Dist. Width 15.2 % (11.5-14.5); White Blood Cell Count 19.2 10^3/uL (4.8-10.8)
--- NOTE | 2024-03-08 12:34 | W.PN.ID1 ---
Date of Service
Date of Service: March 08, 2024
Today's Communication
Continue antibiotics.
Assessment / Plan
Septic arthritis (L) knee
Prepatellar left bursitis
Chronic steroid use
H/o multiple drug allergies
- blood cultures x2 no growth to date
- s/p left knee open irrigation
Recommendations:
Continue with vancomycin. Follow vancomycin levels closely.
Follow intraoperative cultures
Chief Complaint
-: Other (prepatellar bursitis due to MRSA)
Subjective / Review of Systems
Patient seen and examined. Status post OR for bursa washout.
Review of Systems: No Fever and No Chills
Vital Signs / Physical Exam
Vital Signs
Vital Signs
Temp Pulse Resp BP Pulse Ox
97.9 F 56 16 136/57 98
03/08/24 11:15 03/08/24 11:15 03/08/24 11:15 03/08/24 11:15 03/08/24 11:15
Physical Exam
Constitutional: No Acute Distress, Comfortable, Chronically Ill and Non-toxic
Eyes: Sclera Anicteric
Cardiovascular: S1/S2; Negative S3/S4
Pulmonary: Clear and Non Labored
Gastrointestinal: Soft, Non Tender, Non Distended and Normal Bowel Sounds
Extremities: Other (Left knee in immobilizer and wrapped.)
Skin: Negative Rash
Neurological: Awake, Alert and AO x 3
Psychological: Calm
Objective Data
Lab Data
Lab Results
03/08/24 12:14
ESR Cancelled 03/03/24 07:35
Estimated Creat Clear 44 ml/min 03/07/24 06:04
Lactic Acid Cancelled 03/02/24 05:00
Total Bilirubin 0.5 mg/dl (0.2-1.3) 03/02/24 00:56
AST 24 U/L (14-36) 03/02/24 00:56
ALT 20 U/L (0-35) 03/02/24 00:56
Alkaline Phosphatase 62 U/L (38-126) 03/02/24 00:56
C-Reactive Protein Cancelled 03/03/24 07:35
Most recent labs reviewed.
Micro Results:
03/08/24 09:15 Wound Culture - Pending
Knee - Left Gram Stain - Pending
03/08/24 09:15 Anaerobic Culture - Pending
Abscess
03/04/24 13:00 Body Fluid Culture - Preliminary
Joint Fluid Staph aureus MRSA
Gram Stain - Preliminary
03/02/24 15:54 Blood Culture - Final
Blood/Venous No Growth - Final Report
03/04/24 13:00 Anaerobic Culture - Preliminary
Joint Fluid NO ANAEROBES ISOLATED
03/02/24 01:51 Blood Culture - Final
Blood/Venous No Growth - Final Report
03/02/24 Unknown Wound Culture - Final
Abscess Staph aureus MRSA
Gram Stain - Final
[2024-03-08] MEDS: MEDROL 4 MG PO (12:43)
[2024-03-08] MEDS: ULTRAM 50 MG PO ×2 (12:47→20:02)
[2024-03-08] MEDS: ORETIC 25 MG PO (12:49)
[2024-03-08 12:50] LABS: Blood Urea Nitrogen 36 mg/dl (7-17); Calcium 8.8 mg/dl (8.4-10.2); Carbon Dioxide 24 mmol/L (22-30); Chloride 103 mmol/L (98-107); Estimated Creatinine Clearance 50 ml/min; Glucose 105 mg/dl (70-99); Potassium 4.5 mmol/L (3.5-5.1); Sodium 140 mmol/L (135-145); eGFR > 60.00
[2024-03-08] MEDS: BENICAR 40 MG PO (12:50)
[2024-03-08] MEDS: COREG 6.25 MG PO ×2 (12:52→20:02)
[2024-03-08] MEDS: LOVENOX 40 MG SC (17:35)
[2024-03-08] MEDS: ADVAIR HFA 230/21 MCG INHALER 2 PUFF INH (19:31)
[2024-03-08] MEDS: SENOKOT-S 1 TABLET PO (20:02)
[2024-03-09 03:01] VITALS: BP 153/69
[2024-03-09] MEDS: VANCOCIN 150 IV (06:05)
[2024-03-09] MEDS: ADVAIR HFA 230/21 MCG INHALER 2 PUFF INH ×2 (07:25→19:30)
[2024-03-09 07:30] VITALS: BP 167/65
--- NOTE | 2024-03-09 08:11 | W.PN.ORTHO ---
Today's Communication / Plan
-
POD #1 s/p left knee I&D
-Immobilizer to remain in place to prevent tension on incisions.
-PT/OT to tolerance. WBAT in immobilizer.
-Dressing to remain in place until Sunday, when it will be changed by ortho.
-Appreciate Infectious Disease recommendations for antibiotics. Cultures taken in OR are pending, gram stain with rare gram + cocci.
-Sutures to remain in place 2-3 weeks.
-Recommend 1 week follow up for wound check.
-Will continue to follow while inpatient.
Assessment
.
Distal Motor Intact: Yes
Dressing:
Clean, dry and intact.
Assessment:
POD #1 s/p left knee I&D
-Immobilizer to remain in place to prevent tension on incisions.
-PT/OT to tolerance. WBAT in immobilizer.
-Dressing to remain in place until Sunday, when it will be changed by ortho.
-Appreciate Infectious Disease recommendations for antibiotics. Cultures taken in OR are pending, gram stain with rare gram + cocci.
-Sutures to remain in place 2-3 weeks.
-Recommend 1 week follow up for wound check.
-Will continue to follow while inpatient.
Plan
.
Surgery / Date: S/p left knee I&D 03/08/2024 - Dr. Michael
Activity:
Out of bed.
PT/OT
Subjective
.
.:
Patient resting comfortably in bed. Reports pain has significantly improved since immediate post op yesterday. Tolerating the knee immobilizer.
Vital Signs and Labs
.
Vital Signs and Labs:
Temp Pulse Resp BP Pulse Ox
97.4 F 62 14 153/69 97
03/09/24 03:01 03/09/24 07:41 03/09/24 07:41 03/09/24 03:01 03/09/24 07:41
Physical Exam
-
Left knee: immobilizer in place. This was removed to reveal dressing to be c/d/i. No drainage through dressing. Surrounding skin intact, no irritation from immobilizer. N/v intact distally. calf soft and non tender to palpation
[2024-03-09 08:36] LABS: Hematocrit 30.7 % (37.0-47.0); Hemoglobin 9.9 g/dL (12.0-16.0); Mean Corp Hgb Conc. 32.2 g/dL (33.0-37.0); Mean Corpuscular Hgb 29.5 pg (27.0-31.0); Mean Corpuscular Volume 91.4 fL (81.0-99.0); Platelet Count 328 10^3/uL (130-400); Red Blood Cell Count 3.36 10^6/uL (4.20-5.40); Red Cell Dist. Width 14.8 % (11.5-14.5); White Blood Cell Count 17.9 10^3/uL (4.8-10.8)
--- NOTE | 2024-03-09 08:46 | W.PN.HOSP.TC ---
Today's Communication/Plan
-
Cont abx as per ID
follow cultures
wound care
WBAT with left knee immobliizer at all times
cont PT/OT
Assessment / Plan
Assessment / Plan
Physical Exam
General: No acute distress appears comfortable at rest
HEENT: NormoCephalic, Anicteric, Moist mucous membranes and Atraumatic
Respiratory: Clear
Cardiac: S1/S2 and Regular Rhythm
GI: Soft, Non Tender, Non Distended and Normal Bowel Sounds
Musculoskeletal: No Clubbing, No Cyanosis
Skin: Dressing left knee clean dry intact
Neuro: AO x 3
Psych: Calm
83F spinal stenosis history of recurrent cellulitis in the past presents to the emergency department with left knee erythema, tenderness and swelling in the setting of previous skin irritation consistent with skin abscess. She is febrile with
leukocytosis suggestive of systemic inflammation. She is hemodynamically stable. Electrolytes and bicarb are within normal limits.
PLAN:
Cellulitis -patient with purulent cellulitis status post I&D. On Keflex PPX for skin infections at home and chronic prednisone.
Sepsis prepatellar bursitis (leukocytosis fever)
Left Septic Knee
Left Knee Subq abscess
Left medial and lateral meniscus tears
- wound culture sent, blood culture sent
- MRSA colonization
- treated empirically with vanc zosyn
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
before discontinuation)
- pain control, wound care
-MRI left knee appreciated
-Ortho eval appreciated bedside arthrocentesis performed, joint fluid culture +S aureus, s/p Left Knee open I&D 03/08 with synovectomy partial medial lateral meniscectomies, tolerated procedure well,
-WBAT in knee immobilizer at all times LLE
-Dressing change with Ortho planned Tues 10/08
-PT/OT eval appreciated SNF rehab
Left Partial Full-thickness Quadriceps Tear
-nonoperative mgmt as per Orthopedic
Asthma - No acute exacerbation
- continue ICS/LABA
- continue methylprednisolone 4mg po daily chronic med
- prn albuterol
HTN Primary
- continue carvedilol 6.25 bid
- HCTZ 25 and ARB
Urinary retention s/p cath
-bladder scan protocol
Constipation
bowel regimen
DVT PPx - Lovenox
Code Status - Partial DNR, no CPR but Intubation is ok
Discussed with patient and patient's daughter Anabelle
I spent a total of 50 minutes with the patient or on the floor. More than 50% of this time involved counseling and coordination of care.
Anticipated Discharge: 24 - 48 hours
Subjective/Interval History
-
Date of Service: March 09, 2024
No acute distress, pain well controlled at this time.
Objective Data
-
Labs:
Laboratory Results
03/09/24
08:23
WBC 17.9 H
Hgb 9.9 L
Hct 30.7 L
Plt Count 328
Sodium Pending
Potassium Pending
Chloride Pending
Carbon Dioxide Pending
BUN Pending
Creatinine Pending
Glucose Pending
Calcium Pending
Vital Signs:
Vital Signs
Temp Pulse Resp BP Pulse Ox
97.9 F 62 14 167/65 97
03/09/24 07:30 03/09/24 07:41 03/09/24 07:41 03/09/24 07:30 03/09/24 07:41
I&O
03/08/24 03/09/24 03/10/24
06:59 06:59 06:59
Intake Total 630 / 630 1590 / 1590
Output Total 225 / 225 150 / 150
Balance 405 / 405 1440 / 1440
[2024-03-09 08:55] LABS: Vancomycin Peak 24.2 ug/ml (18-26)
[2024-03-09 08:59] LABS: Blood Urea Nitrogen 41 mg/dl (7-17); Calcium 8.7 mg/dl (8.4-10.2); Carbon Dioxide 25 mmol/L (22-30); Chloride 103 mmol/L (98-107); Estimated Creatinine Clearance 44 ml/min; Glucose 106 mg/dl (70-99); Potassium 4.3 mmol/L (3.5-5.1); Sodium 140 mmol/L (135-145); eGFR > 60.00
--- NOTE | 2024-03-09 09:05 | PHA.VAN.FU ---
Vancomycin Assessment / Plan
- Assessment
Renal Function: Stable
In the past 24 hrs, patient has been: Afebrile
- Assessment - Therapeutic Drug Monitoring
Extrapolated Cmax (mcg/mL): 24.2
Peak level was drawn: Appropriately (~1.5HRS AFTER INFUSION FINISHED)
- Monitoring Plan
Trough Level: 03/10 @0530
- Follow Up
Pharmacy will continue to follow.
Vancomycin Follow UP
- -
Patient Age: 83
Patient Sex: Female
Vancomycin Day #: 7
Indication: Bone And Joint
Requesting Provider: Dr. Baljit Echols / [facility]
Pertinent Antimicrobial Allergies:
Doxycycline-Unknown reaction
Bactrim (sulfamethoxazole, trimethoprim)-swelling
Ofloxacin- unknown reaction. tolerates cipro
Height / Weight:
Height 5 ft 3 in
Actual Weight 63.1 kg
IBW in k.4
Adjusted BW in k.7
Pertinent Past Medical History: Recurrent cellulitis (chronic cephalexin), Asthma (chronic methylpred)
- Vital Signs / Lab Results
Temp Pulse Resp BP Pulse Ox
97.9 F 62 14 167/65 97
03/09/24 07:30 03/09/24 07:41 03/09/24 07:41 03/09/24 07:30 03/09/24 07:41
Lab Results - Hematology
03/07/24 03/08/24 03/09/24
06:04 12:14 08:23
WBC 13.9 H 19.2 H 17.9 H
Lab Results - Chemistry
03/07/24 03/08/24 03/09/24
06:04 12:14 08:23
BUN 31 H 36 H 41 H
Creatinine 0.8 0.7 0.8
Estimated Creat Clear 44 50 44
Microbiology Results
03/08/24 09:15 Gram Stain - Preliminary
Knee - Left
03/04/24 13:00 Body Fluid Culture - Preliminary
Joint Fluid Staph aureus MRSA
Gram Stain - Preliminary
03/02/24 15:54 Blood Culture - Final
Blood/Venous No Growth - Final Report
03/04/24 13:00 Anaerobic Culture - Preliminary
Joint Fluid NO ANAEROBES ISOLATED
Therapeutic Drug Monitoring
Vancomycin Peak 24.2 ug/ml (18-26) 03/09/24 08:23
[2024-03-09] MEDS: ORETIC 25 MG PO (09:06)
[2024-03-09] MEDS: BENICAR 40 MG PO (09:06)
[2024-03-09] MEDS: MEDROL 4 MG PO (09:06)
[2024-03-09] MEDS: SENOKOT-S 1 TABLET PO ×2 (09:06→20:14)
[2024-03-09] MEDS: COREG 6.25 MG PO ×2 (09:06→20:12)
[2024-03-09] MEDS: DESENEX/MITRAZOL/ZEASORB 1 APPLIC TOPICAL (09:07)
--- NOTE | 2024-03-09 11:11 | W.PN.ID1 ---
Date of Service
Date of Service: March 09, 2024
Today's Communication
Continue antibiotics
Assessment / Plan
Septic arthritis (L) knee 2* MRSA
Prepatellar left bursitis
Chronic steroid use
H/o multiple drug allergies
- blood cultures x2 no growth to date
- s/p left knee open irrigation
Recommendations:
Continue with vancomycin. Follow vancomycin levels closely.
Follow intraoperative cultures
Monitor white count & temperature curve.
����������������������������������������������������������
Chief Complaint
-: Other (prepatellar bursitis due to MRSA)
Subjective / Review of Systems
Review of Systems: No Fever and No Chills
Vital Signs / Physical Exam
Vital Signs
Vital Signs
Temp Pulse Resp BP Pulse Ox
97.9 F 62 14 167/65 97
03/09/24 07:30 03/09/24 07:41 03/09/24 07:41 03/09/24 07:30 03/09/24 08:30
Physical Exam
Constitutional: No Acute Distress, Comfortable, Chronically Ill and Non-toxic
Eyes: Sclera Anicteric
Cardiovascular: S1/S2; Negative S3/S4
Pulmonary: Clear and Non Labored
Gastrointestinal: Soft, Non Tender, Non Distended and Normal Bowel Sounds
Extremities: Other (Left knee in immobilizer and wrapped.)
Skin: Negative Rash
Neurological: Awake, Alert and AO x 3
Psychological: Calm
Objective Data
Lab Data
Lab Results
03/09/24 08:23
03/09/24 08:23
ESR Cancelled 03/03/24 07:35
Estimated Creat Clear 44 ml/min 03/09/24 08:23
Lactic Acid Cancelled 03/02/24 05:00
Total Bilirubin 0.5 mg/dl (0.2-1.3) 03/02/24 00:56
AST 24 U/L (14-36) 03/02/24 00:56
ALT 20 U/L (0-35) 03/02/24 00:56
Alkaline Phosphatase 62 U/L (38-126) 03/02/24 00:56
C-Reactive Protein Cancelled 03/03/24 07:35
Most recent labs reviewed.
Micro Results:
03/04/24 13:00 Body Fluid Culture - Final
Joint Fluid Staph aureus MRSA
Gram Stain - Final
03/04/24 13:00 Anaerobic Culture - Final
Joint Fluid NO ANAEROBES ISOLATED
03/08/24 09:15 Anaerobic Culture - Preliminary
Abscess Culture pending. Anaerobic cultures are examined after 3
days incubation. Additional information to follow.
03/08/24 09:15 Wound Culture - Preliminary
Knee - Left No growth
Gram Stain - Preliminary
03/02/24 15:54 Blood Culture - Final
Blood/Venous No Growth - Final Report
03/02/24 01:51 Blood Culture - Final
Blood/Venous No Growth - Final Report
03/02/24 Unknown Wound Culture - Final
Abscess Staph aureus MRSA
Gram Stain - Final
--- NOTE | 2024-03-09 11:30 | PTCARENOTE ---
Enc pt to get oob and sit in chair. Reluctant at first but agreed to. Assisted pt to edge of bed. Pt stood and took some steps to sit into chair with use of walker and assist x2. Left leg immobilizer on for support. Pt was using bedpan for
voids earlier, but now can use BSC with assistance during daytime if able. Emotional support provided. Pain this am in bed was a 3/10. Pt in chair a currently comfortable. Will cont to monitor.
[2024-03-09] MEDS: HYDROPHOR TOPICAL (12:02)
[2024-03-09 12:05] VITALS: BP 131/50
[2024-03-09 15:00] VITALS: BP 125/49
[2024-03-09] MEDS: LOVENOX 40 MG SC (18:00)
[2024-03-09] MEDS: ULTRAM 50 MG PO (18:00)
[2024-03-09 23:05] VITALS: BP 135/45
[2024-03-10] MEDS: VANCOCIN 150 IV (06:18)
[2024-03-10 06:19] LABS: Hematocrit 30.2 % (37.0-47.0); Hemoglobin 9.8 g/dL (12.0-16.0); Mean Corp Hgb Conc. 32.5 g/dL (33.0-37.0); Mean Corpuscular Hgb 30.6 pg (27.0-31.0); Mean Corpuscular Volume 94.4 fL (81.0-99.0); Mean Platelet Volume 9.3 fL (7.4-10.4); Platelet Count 347 10^3/uL (130-400); Red Cell Dist. Width 14.8 % (11.5-14.5)
[2024-03-10 06:36] LABS: Vancomycin Trough 12.4 ug/ml (5-20)
[2024-03-10 06:59] LABS: Blood Urea Nitrogen 44 mg/dl (7-17); Calcium 8.9 mg/dl (8.4-10.2); Carbon Dioxide 23 mmol/L (22-30); Chloride 106 mmol/L (98-107); Estimated Creatinine Clearance 39 ml/min; Glucose 74 mg/dl (70-99); Potassium 4.1 mmol/L (3.5-5.1); Sodium 142 mmol/L (135-145); eGFR > 60.00
[2024-03-10 07:00] VITALS: BP 144/59
[2024-03-10] MEDS: ADVAIR HFA 230/21 MCG INHALER 2 PUFF INH ×2 (07:39→20:11)
--- NOTE | 2024-03-10 08:16 | W.PN.HOSP.TC ---
Today's Communication/Plan
-
Continue antibiotics, appreciate ID
Anticipate discharge tomorrow
Assessment / Plan
Assessment / Plan
Physical Exam
General: No acute distress appears comfortable at rest
HEENT: NormoCephalic, Anicteric, Moist mucous membranes and Atraumatic
Respiratory: Clear
Cardiac: S1/S2 and Regular Rhythm
GI: Soft, Non Tender, Non Distended and Normal Bowel Sounds
Musculoskeletal: No Clubbing, No Cyanosis
Skin: Dressing left knee clean dry intact
Neuro: AO x 3
Psych: Calm
Assessment/Plan
83F spinal stenosis history of recurrent cellulitis in the past presents to the emergency department with left knee erythema, tenderness and swelling in the setting of previous skin irritation consistent with skin abscess. She is febrile with
leukocytosis suggestive of systemic inflammation. She is hemodynamically stable. Electrolytes and bicarb are within normal limits.
Cellulitis -patient with purulent cellulitis status post I&D. On Keflex PPX for skin infections at home and chronic prednisone.
Sepsis prepatellar bursitis (leukocytosis fever)
Left Septic Knee
Left Knee Subq abscess
Left medial and lateral meniscus tears
- wound culture sent, blood culture sent
- MRSA colonization
- treated empirically with vanc zosyn
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
before discontinuation)
-As per ID, plan for four weeks of IV vancomycin 03/01-03/28
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
-IR consulted on 03/10/24 for PICC line placement as discussed with nurse due to challenges with PICC line placement
- pain control, wound care
-MRI left knee appreciated
-Ortho eval appreciated bedside arthrocentesis performed, joint fluid culture +S aureus, s/p Left Knee open I&D 03/08 with synovectomy partial medial lateral meniscectomies, tolerated procedure well,
-WBAT in knee immobilizer at all times LLE
-Dressing change with Ortho planned 03/11
-PT/OT eval appreciated SNF rehab
-Dressing to remain in place until Sunday03/11/24, when it will be changed by ortho.
-Sutures to remain in place 2-3 weeks.
-Recommend 1 week follow up with ortho for wound check.
Constipation
- Patient says PO Dulcolax and enemas are the only things that have worked for her in the past
- Continue Senokot-S and PRN daily Dulcolax
Left Partial Full-thickness Quadriceps Tear
-nonoperative mgmt as per Orthopedic
Asthma - No acute exacerbation
- continue ICS/LABA
- continue methylprednisolone 4mg po daily chronic med
- prn albuterol
HTN Primary
- continue carvedilol 6.25 bid
- HCTZ 25 and ARB
Urinary retention s/p cath
-bladder scan protocol
Constipation
bowel regimen
DVT PPx - Lovenox
Code Status - Partial DNR, no CPR but Intubation is okay
Anticipated Discharge: Within 24 hours
Subjective/Interval History
-
Date of Service: March 10, 2024
Patient was seen and examined. She reported not having a bowel movement for about 4 days now. She denied any other new symptoms or complaints.
Objective Data
-
Labs:
Laboratory Results
03/10/24
05:36
WBC 13.0 H
Hgb 9.8 L
Hct 30.2 L
Plt Count 347
Sodium 142
Potassium 4.1
Chloride 106
Carbon Dioxide 23
BUN 44 H
Creatinine 0.9
Glucose 74
Calcium 8.9
Vital Signs:
Vital Signs
Temp Pulse Resp BP Pulse Ox
98.6 F 64 16 135/45 98
03/09/24 23:05 03/10/24 07:43 03/10/24 07:43 03/09/24 23:05 03/10/24 07:43
I&O
03/09/24 03/10/24 03/11/24
06:59 06:59 06:59
Intake Total 1590 / 1590 680 / 680
Output Total 150 / 150
Balance 1440 / 1440 680 / 680
[2024-03-10] MEDS: DESENEX/MITRAZOL/ZEASORB 1 APPLIC TOPICAL (08:29)
[2024-03-10] MEDS: HYDROPHOR 1 APPLIC TOPICAL (08:30)
[2024-03-10] MEDS: ORETIC 25 MG PO (08:31)
[2024-03-10] MEDS: SENOKOT-S 1 TABLET PO ×2 (08:31→20:09)
[2024-03-10] MEDS: BENICAR 40 MG PO (08:31)
[2024-03-10] MEDS: MEDROL 4 MG PO (08:31)
[2024-03-10] MEDS: COREG 6.25 MG PO ×2 (08:31→20:09)
--- NOTE | 2024-03-10 08:50 | PHA.VAN.FU ---
Vancomycin Assessment / Plan
- Assessment
Renal Function: Stable
WBC's are: Trending Down
In the past 24 hrs, patient has been: Afebrile
- Assessment - Therapeutic Drug Monitoring
Extrapolated Cmax (mcg/mL): 25.2
Peak level was drawn: Appropriately (drawn ~1.3H after end of previous infusion)
Extrapolated Cmin (mcg/mL): 12.2
Trough Drawn: Appropriately
Levels were drawn: At steady state (levels drawn after 8th maintenance dose)
Calculated AUC (mcg*h/mL): 431
Calculated ke: 0.0315
Calculated half life (H): 22
Calculated Vd (L): 55 (~0.87 L/kg)
Calculated Vanc CL (ml/min): 29
- Dosing Plan
Continue: Vanc 750mg Q24H
- Monitoring Plan
Level(s) appropriate: Recheck trough at minimum of weekly intervals, Repeat sooner for changes in renal function or clinical status
Next Level Due (Date): ~03/17
- Follow Up
Pharmacy will continue to follow.
Vancomycin Follow UP
- -
Patient Age: 83
Patient Sex: Female
Vancomycin Day #: 9
Indication: Bone And Joint
Requesting Provider: Dr. Baljit Echols / [facility]
Pertinent Antimicrobial Allergies:
Doxycycline-Unknown reaction
Bactrim (sulfamethoxazole, trimethoprim)-swelling
Ofloxacin- unknown reaction. tolerates cipro
Height / Weight:
Height 5 ft 3 in
Actual Weight 63.1 kg
IBW in k.4
Adjusted BW in k.7
Pertinent Past Medical History: Recurrent cellulitis (chronic cephalexin), Asthma (chronic methylpred)
- Vital Signs / Lab Results
Temp Pulse Resp BP Pulse Ox
98.5 F 64 16 144/59 98
03/10/24 07:00 03/10/24 07:43 03/10/24 07:43 03/10/24 08:31 03/10/24 07:43
Lab Results - Hematology
03/08/24 03/09/24 03/10/24
12:14 08:23 05:36
WBC 19.2 H 17.9 H 13.0 H
Lab Results - Chemistry
03/08/24 03/09/24 03/10/24
12:14 08:23 05:36
BUN 36 H 41 H 44 H
Creatinine 0.7 0.8 0.9
Estimated Creat Clear 50 44 39
Microbiology Results
03/04/24 13:00 Body Fluid Culture - Final
Joint Fluid Staph aureus MRSA
Gram Stain - Final
03/04/24 13:00 Anaerobic Culture - Final
Joint Fluid NO ANAEROBES ISOLATED
03/08/24 09:15 Anaerobic Culture - Preliminary
Abscess Culture pending. Anaerobic cultures are examined after 3
days incubation. Additional information to follow.
03/08/24 09:15 Wound Culture - Preliminary
Knee - Left No growth
Gram Stain - Preliminary
Therapeutic Drug Monitoring
Vancomycin Peak 24.2 ug/ml (18-26) 03/09/24 08:23
Vancomycin Trough 12.4 ug/ml (5-20) 03/10/24 05:36
--- NOTE | 2024-03-10 10:02 | W.PN.ORTHO ---
Today's Communication / Plan
-
POD #2 s/p left knee I&D
-Immobilizer to remain in place to prevent tension on incisions.
-PT/OT to tolerance. WBAT in immobilizer.
-Dressing to remain in place until Sunday, when it will be changed by ortho.
-Appreciate ID recommendations on ABX. Cultures taken in OR are still negative/pending, gram stain with rare gram + cocci.
-Sutures to remain in place 2-3 weeks.
-Recommend 1 week follow up for wound check.
-Will continue to follow while inpatient
Assessment
.
Distal Motor Intact: Yes
Dressing:
Clean, dry and intact. Soft dressing remains, no saturation
Assessment:
POD#2 Left knee I&D
Overall, all things considered, doing well
Calf soft, nontender
Plan
.
Surgery / Date: S/p left knee I&D 03/08/2024 - Dr. Michael
Activity:
Out of bed. WBAT LLE in immmoblizer
PT/OT
Discharge Plan: Other (Appreciate CM with Dispo)
Subjective
.
.:
Patient resting comfortably in bed this AM. No significant left knee pain
Vital Signs and Labs
.
Vital Signs and Labs:
Lab Results
03/10/24 05:36
03/10/24 05:36
Temp Pulse Resp BP Pulse Ox
98.5 F 64 16 144/59 98
03/10/24 07:00 03/10/24 07:43 03/10/24 07:43 03/10/24 08:31 03/10/24 07:43
[2024-03-10 12:36] VITALS: BP 153/77; PULSE 69
--- NOTE | 2024-03-10 12:47 | CM ---
Addendum entered by Jami Rush 03/10/24 15:41:
received order for Vanco 750mg IV Q24hr for 4 weeks (end date 03/28/24)
Options reviewed with daughter Anabelle
Spoke to Karolina at [facility] ([phone]) & faxed over order & clinicals to [facility] & will run the insurance & any out of pocket costs. Karolina stated that [facility] can do the line care/abx
Daughter would like to bring her [facility] as she stated she has performed past IV infusion on her mom.
Reiterated that PT recommending SNF for patient.
Original Note:
Met with patient at bedside.
I&D on L kneed performed on 03/08, cont w/abx
Spoke with patient daughter Anabelle who remains reluctant with SNF
PT recommended SNF-was current with [facility]
Anabelle stated went to [facility] and spoke to staff.
Discussed SNF options & [facility] referrals entered
CM will need to get ins authorization for SNF
PLAN: SNF, pending bed availability
[2024-03-10 12:51] VITALS: BP 153/77; PULSE 62; O2SAT 95
--- NOTE | 2024-03-10 14:13 | W.PN.ID1 ---
Date of Service
Date of Service: March 10, 2024
Today's Communication
Plan four weeks of IV vancomycin 03/01-03/28
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
follow up with PCP
Assessment / Plan
Septic arthritis (L) knee 2* MRSA
Prepatellar left bursitis
Chronic steroid use - 5 mg PO qday
H/o multiple drug allergies
- blood cultures x2 finalized negative
- s/p left knee open irrigation 03/08
Recommendations:
Continue with vancomycin.
03/08 intraop culture prelim - no growth
Plan four weeks of IV vancomycin 03/01-03/28
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
follow up with PCP
����������������������������������������������������������
Chief Complaint
-: Other (prepatellar bursitis due to MRSA, septic joint due to MRSA)
Subjective / Review of Systems
afebrile
bp stable
was able to sit in chair yesterday
Vital Signs / Physical Exam
Vital Signs
Vital Signs
Temp Pulse Resp BP Pulse Ox
98.5 F 64 16 144/59 98
03/10/24 07:00 03/10/24 07:43 03/10/24 07:43 03/10/24 08:31 03/10/24 07:43
Physical Exam
Constitutional: No Acute Distress and Chronically Ill
Cardiovascular: Regular Rate and S1/S2; Negative Murmur or Rub
Pulmonary: Clear and Symmetric; Negative Wheezes or Rales
Gastrointestinal: Soft, Non Tender, Non Distended and Normal Bowel Sounds
Skin: Warm and Dry; Negative Rash or Jaundice
Wound: Other (dressing clean, dry, intact)
Objective Data
Lab Data
Lab Results
03/10/24 05:36
03/10/24 05:36
ESR Cancelled 03/03/24 07:35
Estimated Creat Clear 39 ml/min 03/10/24 05:36
Lactic Acid Cancelled 03/02/24 05:00
Total Bilirubin 0.5 mg/dl (0.2-1.3) 03/02/24 00:56
AST 24 U/L (14-36) 03/02/24 00:56
ALT 20 U/L (0-35) 03/02/24 00:56
Alkaline Phosphatase 62 U/L (38-126) 03/02/24 00:56
C-Reactive Protein Cancelled 03/03/24 07:35
Most recent labs reviewed.
Micro Results:
03/08/24 09:15 Wound Culture - Preliminary
Knee - Left No growth
Gram Stain - Preliminary
03/04/24 13:00 Body Fluid Culture - Final
Joint Fluid Staph aureus MRSA
Gram Stain - Final
03/04/24 13:00 Anaerobic Culture - Final
Joint Fluid NO ANAEROBES ISOLATED
03/08/24 09:15 Anaerobic Culture - Preliminary
Abscess Culture pending. Anaerobic cultures are examined after 3
days incubation. Additional information to follow.
03/02/24 15:54 Blood Culture - Final
Blood/Venous No Growth - Final Report
03/02/24 01:51 Blood Culture - Final
Blood/Venous No Growth - Final Report
03/02/24 Unknown Wound Culture - Final
Abscess Staph aureus MRSA
Gram Stain - Final
[2024-03-10 15:00] VITALS: BP 139/58
[2024-03-10] MEDS: LOVENOX 40 MG SC (17:20)
[2024-03-10] MEDS: DULCOLAX 10 MG PO (17:20)
[2024-03-10 23:18] VITALS: BP 146/58
[2024-03-11] MEDS: VANCOCIN 150 IV (06:22)
[2024-03-11 07:00] VITALS: BP 147/61
--- NOTE | 2024-03-11 07:42 | W.PN.ORTHO ---
Today's Communication / Plan
-
POD #3 s/p left knee I&D
-Immobilizer to remain in place to prevent tension on incisions.
-PT/OT to tolerance. WBAT in immobilizer.
-Dressing change performed this AM.
-Appreciate ID recommendations on ABX. Cultures taken in OR are still negative/pending, gram stain with rare gram + cocci.
-Sutures to remain in place 2-3 weeks.
-Recommend 1 week follow up for wound check.
-Will continue to follow while inpatient.
Assessment
.
Distal Motor Intact: Yes
Dressing:
Clean, dry and intact. Soft dressing remains, no significant saturation. Dressing change performed this AM.
Assessment:
POD#3 Left knee I&D
Overall, all things considered, doing well
Calf soft, nontender.
Plan
.
Surgery / Date: S/p left knee I&D 03/08/2024 - Dr. Michael
Activity:
Out of bed.
PT/OT
Discharge Information:
Appreciate CM
Subjective
.
.:
Patient resting comfortably in bed this AM. Endorses improvement with left knee pain.
Vital Signs and Labs
.
Vital Signs and Labs:
Lab Results
03/10/24 05:36
03/10/24 05:36
Temp Pulse Resp BP Pulse Ox
98.7 F 73 16 146/58 96
03/10/24 23:18 03/10/24 23:18 03/10/24 23:18 03/10/24 23:18 03/10/24 23:18
[2024-03-11] MEDS: ADVAIR HFA 230/21 MCG INHALER 2 PUFF INH ×2 (08:24→20:40)
[2024-03-11] MEDS: DULCOLAX 10 MG PO (08:35)
[2024-03-11] MEDS: HYDROPHOR 1 APPLIC TOPICAL (08:35)
[2024-03-11] MEDS: ULTRAM 50 MG PO (08:35)
[2024-03-11] MEDS: SENOKOT-S 1 TABLET PO ×2 (08:36→20:09)
[2024-03-11] MEDS: COREG 6.25 MG PO ×2 (08:36→20:08)
[2024-03-11] MEDS: ORETIC 25 MG PO (08:36)
[2024-03-11] MEDS: MEDROL 4 MG PO (08:36)
[2024-03-11] MEDS: BENICAR 40 MG PO (08:36)
--- NOTE | 2024-03-11 09:51 | PTCARENOTE ---
pt received prn Ultram this AM after having her knee re-wrapped by Ortho at the bedside. see MAR for proper documentation
--- NOTE | 2024-03-11 09:53 | PHA.VAN.FU ---
Vancomycin Assessment / Plan
- Assessment
Renal Function: No New Labs Today
In the past 24 hrs, patient has been: Afebrile
- Dosing Plan
Continue: Vanc 750mg Q24H
- Monitoring Plan
Level(s) appropriate: Recheck trough at minimum of weekly intervals, Repeat sooner for changes in renal function or clinical status
Next Level Due (Date): ~03/17
- Follow Up
Pharmacy will continue to follow.
Vancomycin Follow UP
- -
Patient Age: 83
Patient Sex: Female
Vancomycin Day #: 10
Indication: Bone And Joint
Requesting Provider: Dr. Baljit Echols / [facility]
Pertinent Antimicrobial Allergies:
Doxycycline-Unknown reaction
Bactrim (sulfamethoxazole, trimethoprim)-swelling
Ofloxacin- unknown reaction. tolerates cipro
Height / Weight:
Height 5 ft 3 in
Actual Weight 63.1 kg
IBW in k.4
Adjusted BW in k.7
Pertinent Past Medical History: Recurrent cellulitis (chronic cephalexin), Asthma (chronic methylpred)
- Vital Signs / Lab Results
Temp Pulse Resp BP Pulse Ox
98.6 F 69 16 147/61 96
03/11/24 07:00 03/11/24 07:00 03/11/24 08:27 03/11/24 08:36 03/11/24 08:27
Lab Results - Hematology
03/08/24 03/09/24 03/10/24
12:14 08:23 05:36
WBC 19.2 H 17.9 H 13.0 H
Lab Results - Chemistry
03/08/24 03/09/24 03/10/24
12:14 08:23 05:36
BUN 36 H 41 H 44 H
Creatinine 0.7 0.8 0.9
Estimated Creat Clear 50 44 39
Microbiology Results
03/08/24 09:15 Anaerobic Culture - Preliminary
Abscess Culture pending. Anaerobic cultures are examined after 3
days incubation. Additional information to follow.
03/08/24 09:15 Wound Culture - Preliminary
Knee - Left No growth
Gram Stain - Preliminary
03/04/24 13:00 Body Fluid Culture - Final
Joint Fluid Staph aureus MRSA
Gram Stain - Final
03/04/24 13:00 Anaerobic Culture - Final
Joint Fluid NO ANAEROBES ISOLATED
Therapeutic Drug Monitoring
Vancomycin Peak 24.2 ug/ml (18-26) 03/09/24 08:23
Vancomycin Trough 12.4 ug/ml (5-20) 03/10/24 05:36
--- NOTE | 2024-03-11 12:04 | CM ---
Met with patient at bedside. IMM explained & signed. In chart
PICC line placed yesterday.
Faxed Karolina at [facility] ([phone]) PICC procedure data & Flouroscopy report, Medication list, trough level. Confirmation received.
Karolina called CM back and stated that there was 0 co-pay for the Vancomycin and IV supplies and Nursing are covered at 80%. Explained to daughter Anabelle. Verbalizes understanding.
CM spoke with daughter Anabelle regarding discharge planning in length and she would like for the patient to be discharged to home with [facility] and [facility] to manage PICC line. Karolina from [facility] will reach out to daughter as she will teach
the daughter to do the infusion of Vancomycin tomorrow here at the hospital approx 11:30am.
Notified liaison from [facility]
Spoke with Dr. De Luna of discharge plan.
PLAN: Discharge tentative tomorrow to home with [facility] along with [facility] fax #: [phone]
Ambulance transportation forms on chart in red folder
--- NOTE | 2024-03-11 13:59 | PTCARENOTE ---
prn dulcolax given for no BM
[2024-03-11 15:00] VITALS: BP 115/53
--- NOTE | 2024-03-11 15:37 | W.PN.ID1 ---
Date of Service
Date of Service: March 11, 2024
Today's Communication
Plan four weeks of IV vancomycin 03/01-03/28
Hold ELECTRIC ORGAN CHECKER suppressive keflex for recurrent cellulitis while on IV vancomycin, restart when complete
Assessment / Plan
Septic arthritis (L) knee 2* MRSA
Prepatellar left bursitis
Chronic steroid use - 5 mg PO qday
H/o multiple drug allergies
- blood cultures x2 finalized negative
- s/p left knee open irrigation 03/08
Recommendations:
Continue with vancomycin.
03/08 intraop culture prelim - no growth, few GPCs on the gram stain
Plan four weeks of IV vancomycin 03/01-03/28 - script given to counter caser
Hold ELECTRIC ORGAN CHECKER suppressive keflex for recurrent cellulitis while on IV vancomycin, restart when complete
follow up with PCP
����������������������������������������������������������
Chief Complaint
-: Other (prepatellar bursitis due to MRSA, septic joint due to MRSA)
Subjective / Review of Systems
afebrile
tolerating current therapies
no new complaints
Vital Signs / Physical Exam
Vital Signs
Vital Signs
Temp Pulse Resp BP Pulse Ox
98.6 F 69 16 147/61 96
03/11/24 07:00 03/11/24 07:00 03/11/24 08:27 03/11/24 08:36 03/11/24 09:54
Physical Exam
Constitutional: No Acute Distress and Chronically Ill
Cardiovascular: Regular Rate
Pulmonary: Symmetric and Non Labored
Gastrointestinal: Soft, Non Tender, Non Distended and Normal Bowel Sounds
Extremities: Other (dressing take down deferred)
Skin: Warm and Dry; Negative Rash or Jaundice
Objective Data
Lab Data
Lab Results
03/10/24 05:36
03/10/24 05:36
ESR Cancelled 03/03/24 07:35
Estimated Creat Clear 39 ml/min 03/10/24 05:36
Lactic Acid Cancelled 03/02/24 05:00
Total Bilirubin 0.5 mg/dl (0.2-1.3) 03/02/24 00:56
AST 24 U/L (14-36) 03/02/24 00:56
ALT 20 U/L (0-35) 03/02/24 00:56
Alkaline Phosphatase 62 U/L (38-126) 03/02/24 00:56
C-Reactive Protein Cancelled 03/03/24 07:35
Most recent labs reviewed.
Micro Results:
03/08/24 09:15 Anaerobic Culture - Preliminary
Abscess NO ANAEROBES ISOLATED
03/08/24 09:15 Wound Culture - Preliminary
Knee - Left No growth
Gram Stain - Preliminary
03/04/24 13:00 Body Fluid Culture - Final
Joint Fluid Staph aureus MRSA
Gram Stain - Final
03/04/24 13:00 Anaerobic Culture - Final
Joint Fluid NO ANAEROBES ISOLATED
03/02/24 15:54 Blood Culture - Final
Blood/Venous No Growth - Final Report
03/02/24 01:51 Blood Culture - Final
Blood/Venous No Growth - Final Report
03/02/24 Unknown Wound Culture - Final
Abscess Staph aureus MRSA
Gram Stain - Final
--- NOTE | 2024-03-11 15:55 | W.PN.HOSP.TC ---
Today's Communication/Plan
-
Per case management, teaching for the home antibiotic infusion tomorrow, patient should be ready for discharge tomorrow from case management standpoint
Continue antibiotics
Appreciate ID
Assessment / Plan
Assessment / Plan
Physical Exam
General: No acute distress appears comfortable at rest
HEENT: Normocephalic, Moist mucous membranes and Atraumatic
Respiratory: Clear
Cardiac: S1/S2 and Regular Rhythm
GI: Soft, Non Tender, Non Distended and Normal Bowel Sounds
Musculoskeletal: No Cyanosis
Skin: Dressing left knee clean dry intact
Neuro: AAO x 3
Psych: Calm
Assessment/Plan
83F spinal stenosis history of recurrent cellulitis in the past presents to the emergency department with left knee erythema, tenderness and swelling in the setting of previous skin irritation consistent with skin abscess. She is febrile with
leukocytosis suggestive of systemic inflammation. She is hemodynamically stable. Electrolytes and bicarb are within normal limits.
Cellulitis -patient with purulent cellulitis status post I&D. On Keflex PPX for skin infections at home and chronic prednisone.
Sepsis prepatellar bursitis (leukocytosis fever)
Left Septic Knee
Left Knee Subq abscess
Left medial and lateral meniscus tears
- wound culture sent, blood culture sent
- MRSA colonization
- treated empirically with vanc zosyn
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
before discontinuation)
-As per ID, plan for four weeks of IV vancomycin 03/01-03/28
-Hold NEWSPAPER COLUMNIST suppressive keflex for recurrent cellulitis while on IV vancomycin, restart when complete
-IR consulted on 03/10/24 for PICC line placement as discussed with nurse due to challenges with PICC line placement
- pain control, wound care
-MRI left knee appreciated
-Ortho eval appreciated bedside arthrocentesis performed, joint fluid culture +S aureus, s/p Left Knee open I&D 03/08 with synovectomy partial medial lateral meniscectomies, tolerated procedure well,
-WBAT in knee immobilizer at all times LLE
-Dressing change with Ortho planned 03/11
-PT/OT eval appreciated SNF rehab
-Dressing to remain in place until Sunday03/11/24, when it will be changed by ortho.
-Sutures to remain in place 2-3 weeks.
-Recommend 1 week follow up with ortho for wound check.
Constipation
- Patient says PO Dulcolax and enemas are the only things that have worked for her in the past
- Continue Senokot-S and PRN daily Dulcolax
Left Partial Full-thickness Quadriceps Tear
-nonoperative mgmt as per Orthopedic
Asthma - No acute exacerbation
- continue ICS/LABA
- continue methylprednisolone 4mg po daily chronic med
- prn albuterol
HTN Primary
- continue carvedilol 6.25 bid
- HCTZ 25 and ARB
Urinary retention s/p cath
-bladder scan protocol
Constipation
bowel regimen
DVT PPx - Lovenox
Code Status - Partial DNR, no CPR but Intubation is okay
Anticipated Discharge: Within 24 hours
Subjective/Interval History
-
Date of Service: March 11, 2024
Patient was seen and examined. She denied any fever, pain or any other complaints.
Objective Data
-
Vital Signs:
Vital Signs
Temp Pulse Resp BP Pulse Ox
98.6 F 69 16 147/61 96
03/11/24 07:00 03/11/24 07:00 03/11/24 08:27 03/11/24 08:36 03/11/24 09:54
I&O
03/10/24 03/11/24 03/12/24
06:59 06:59 06:59
Intake Total 680 / 680 1230 / 1230
Balance 680 / 680 1230 / 1230
[2024-03-11 16:58] VITALS: BP 149/64; PULSE 64; O2SAT 97
[2024-03-11] MEDS: LOVENOX 40 MG SC (17:57)
[2024-03-11 22:57] VITALS: BP 134/56
[2024-03-12] MEDS: VANCOCIN 150 IV (06:08)
[2024-03-12 07:00] VITALS: BP 132/59
--- NOTE | 2024-03-12 07:27 | W.PN.UPDATE ---
Update Note
Progress Note Update
Ms. Teixeira is resting comfortably in bed this morning. She endorses gradual improvement in her knee pain overall.
Directed exam of the left lower extremity reveals dressings clean, dry and intact. Patient able to wiggle toes, flex and extend ankle. NVID.
Cultures from OR negative to date.
WBC trending down.
POD #4 s/p left knee I&D
-Immobilizer to remain in place to prevent tension on incisions. The brace was not fitted appropriately this morning. I adjusted it this morning, and educated patient on brace placement.. Her knee joint needs to be kept in the middle of the brace
(where the cutouts are) to ensure no flexion of the knee. The top of the knee immobilizer will sit at the top of her thigh, near her groin. The straps should be snug, but not tight.
-PT/OT to tolerance. WBAT in immobilizer.
-Appreciate ID recommendations on ABX. Cultures taken in OR are still negative/pending, gram stain with rare gram + cocci. Currently vanco.
-Sutures to remain in place 2-3 weeks.
-Recommend 1 week follow up for wound check.
-Will continue to follow while inpatient.
[2024-03-12] MEDS: COREG 6.25 MG PO (08:13)
[2024-03-12] MEDS: ORETIC 25 MG PO (08:14)
[2024-03-12] MEDS: MEDROL 4 MG PO (08:14)
[2024-03-12] MEDS: BENICAR 40 MG PO (08:14)
[2024-03-12] MEDS: SENOKOT-S 1 TABLET PO (08:14)
[2024-03-12] MEDS: HYDROPHOR 1 APPLIC TOPICAL (08:15)
[2024-03-12] MEDS: ADVAIR HFA 230/21 MCG INHALER 2 PUFF INH (08:26)
--- NOTE | 2024-03-12 09:01 | PHA.VAN.FU ---
Vancomycin Assessment / Plan
- Assessment
Renal Function: No New Labs Today
In the past 24 hrs, patient has been: Afebrile
- Dosing Plan
Continue: Vanc 750mg Q24H
- Monitoring Plan
Level(s) appropriate: Recheck trough at minimum of weekly intervals, Repeat sooner for changes in renal function or clinical status
Next Level Due (Date): ~03/17
- Follow Up
Pharmacy will continue to follow.
Vancomycin Follow UP
- -
Patient Age: 83
Patient Sex: Female
Vancomycin Day #: 11
Indication: Bone And Joint
Requesting Provider: Dr. Baljit Echols / [facility]
Pertinent Antimicrobial Allergies:
Doxycycline-Unknown reaction
Bactrim (sulfamethoxazole, trimethoprim)-swelling
Ofloxacin- unknown reaction. tolerates cipro
Height / Weight:
Height 5 ft 3 in
Actual Weight 63.1 kg
IBW in k.4
Adjusted BW in k.7
Pertinent Past Medical History: Recurrent cellulitis (chronic cephalexin), Asthma (chronic methylpred)
- Vital Signs / Lab Results
Temp Pulse Resp BP Pulse Ox
98.6 F 76 16 132/59 95
03/12/24 07:00 03/12/24 08:31 03/12/24 08:31 03/12/24 08:14 03/12/24 08:39
Lab Results - Hematology
03/10/24
05:36
WBC 13.0 H
Lab Results - Chemistry
03/10/24
05:36
BUN 44 H
Creatinine 0.9
Estimated Creat Clear 39
Microbiology Results
03/08/24 09:15 Anaerobic Culture - Preliminary
Abscess NO ANAEROBES ISOLATED
03/08/24 09:15 Wound Culture - Preliminary
Knee - Left No growth
Gram Stain - Preliminary
Therapeutic Drug Monitoring
Vancomycin Peak 24.2 ug/ml (18-26) 03/09/24 08:23
Vancomycin Trough 12.4 ug/ml (5-20) 03/10/24 05:36
[2024-03-12 11:00] VITALS: BP 120/52
--- NOTE | 2024-03-12 12:10 | W.PN.ID1 ---
Date of Service
Date of Service: March 12, 2024
Today's Communication
Plan four weeks of IV vancomycin 03/01-03/28 - script given to registered nurse hh case manager
Hold SURVEYOR'S ASSISTANT suppressive keflex for recurrent cellulitis while on IV vancomycin, restart when complete
follow up with PCP
Assessment / Plan
Septic arthritis (L) knee 2* MRSA
Prepatellar left bursitis due to MRSA
Chronic steroid use - 5 mg PO qday
H/o multiple drug allergies
- blood cultures x2 finalized negative
- s/p left knee open irrigation 03/08
Recommendations:
Continue with vancomycin.
03/08 intraop culture prelim - no growth, few GPCs on the gram stain
Plan four weeks of IV vancomycin 03/01-03/28 - script given to registered nurse hh case manager
Hold SURVEYOR'S ASSISTANT suppressive keflex for recurrent cellulitis while on IV vancomycin, restart when complete
follow up with PCP
����������������������������������������������������������
Chief Complaint
-: Other (prepatellar bursitis due to MRSA, septic joint due to MRSA)
Subjective / Review of Systems
afebrile
bp stable
constipated, had bowel regimen
Vital Signs / Physical Exam
Vital Signs
Vital Signs
Temp Pulse Resp BP Pulse Ox
99.3 F 76 14 120/52 96
03/12/24 11:00 03/12/24 11:00 03/12/24 11:00 03/12/24 11:00 03/12/24 11:00
Physical Exam
Constitutional: No Acute Distress
Cardiovascular: Regular Rate and S1/S2; Negative Murmur or Rub
Pulmonary: Clear and Symmetric; Negative Wheezes or Rales
Gastrointestinal: Soft, Non Tender, Non Distended and Normal Bowel Sounds
Skin: Warm and Dry; Negative Rash or Jaundice
Wound: Other (dressing clean, dry, intact)
Objective Data
Lab Data
Lab Results
03/10/24 05:36
03/10/24 05:36
ESR Cancelled 03/03/24 07:35
Estimated Creat Clear 39 ml/min 03/10/24 05:36
Lactic Acid Cancelled 03/02/24 05:00
Total Bilirubin 0.5 mg/dl (0.2-1.3) 03/02/24 00:56
AST 24 U/L (14-36) 03/02/24 00:56
ALT 20 U/L (0-35) 03/02/24 00:56
Alkaline Phosphatase 62 U/L (38-126) 03/02/24 00:56
C-Reactive Protein Cancelled 03/03/24 07:35
Most recent labs reviewed.
Micro Results:
03/08/24 09:15 Anaerobic Culture - Preliminary
Abscess NO ANAEROBES ISOLATED
03/08/24 09:15 Wound Culture - Preliminary
Knee - Left No growth
Gram Stain - Preliminary
03/04/24 13:00 Body Fluid Culture - Final
Joint Fluid Staph aureus MRSA
Gram Stain - Final
03/04/24 13:00 Anaerobic Culture - Final
Joint Fluid NO ANAEROBES ISOLATED
03/02/24 15:54 Blood Culture - Final
Blood/Venous No Growth - Final Report
03/02/24 01:51 Blood Culture - Final
Blood/Venous No Growth - Final Report
03/02/24 Unknown Wound Culture - Final
Abscess Staph aureus MRSA
Gram Stain - Final
--- NOTE | 2024-03-12 12:30 | PTCARENOTE ---
patient and her daughter seen by Nurse Turcios from [facility]. Education provided to the daughter to do the infusion of Vancomycin.
--- NOTE | 2024-03-12 14:16 | W.PN.HOSP.TC ---
Today's Communication/Plan
-
Discharge today
Assessment / Plan
Assessment / Plan
Physical Exam
General: No acute distress appears comfortable at rest
HEENT: Normocephalic, Moist mucous membranes and Atraumatic
Respiratory: Clear to Auscultation Bilaterally
Cardiac: S1/S2 and Regular Rhythm
GI: Soft, Non Tender, Non Distended and Normal Bowel Sounds
Musculoskeletal: No Cyanosis
Skin: Dressing left knee clean dry intact
Neuro: AAO x 3
Psych: Calm
Assessment/Plan
83F spinal stenosis history of recurrent cellulitis in the past presents to the emergency department with left knee erythema, tenderness and swelling in the setting of previous skin irritation consistent with skin abscess. She is febrile with
leukocytosis suggestive of systemic inflammation. She is hemodynamically stable. Electrolytes and bicarb are within normal limits.
Cellulitis -patient with purulent cellulitis status post I&D. On Keflex PPX for skin infections at home and chronic prednisone.
Sepsis prepatellar bursitis (leukocytosis fever)
Left Septic Knee
Left Knee Subq abscess
Left medial and lateral meniscus tears
Septic arthritis (L) knee 2* MRSA
Prepatellar left bursitis due to MRSA
Chronic steroid use - 5 mg PO qday
H/o multiple drug allergies
- Blood cultures x2 negative
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
before discontinuation)
-As per ID, plan four weeks of IV vancomycin 03/01-03/28 - script given to bottle caser
-Hold DESKTOP SUPPORT ENGINEER suppressive keflex for recurrent cellulitis while on IV vancomycin, restart when complete
-Pain control, wound care
-MRI left knee appreciated
-Ortho eval appreciated bedside arthrocentesis performed, joint fluid culture +S aureus, s/p Left Knee open I&D 03/08 with synovectomy partial medial lateral meniscectomies, tolerated procedure well,
-WBAT in knee immobilizer at all times LLE -- continue wearing the brace as instructed by orthopedics team
-PT/OT to tolerance
-Sutures to remain in place 2-3 weeks.
-Recommend 1 week follow up with ortho for wound check.
Constipation
- Patient says PO Dulcolax and enemas are the only things that have worked for her in the past
- Continue Senokot-S and PRN daily Dulcolax
Left Partial Full-thickness Quadriceps Tear
-nonoperative mgmt as per Orthopedic
Asthma - No acute exacerbation
- continue ICS/LABA
- continue methylprednisolone 4mg po daily chronic med
- prn albuterol
HTN Primary
- continue carvedilol 6.25 bid
- HCTZ 25 and ARB
Urinary retention s/p cath
-bladder scan protocol
Constipation
bowel regimen
DVT PPx - Lovenox
Code Status - Partial DNR, no CPR but Intubation is okay
More than 30 minutes spent in discharge including
Final examination of the patient
Summarizing hospital stay
Instructions for continuing care to all relevant caregivers
Preparation of discharge records, prescriptions, and referral forms
Total time spent (in minutes): 39
Anticipated Discharge: Today
Subjective/Interval History
-
Date of Service: March 12, 2024
Patient was seen and examined. She denied any new symptoms and mentioned she is ready to be discharged from the hospital.
Objective Data
-
Vital Signs:
Vital Signs
Temp Pulse Resp BP Pulse Ox
99.3 F 76 14 120/52 96
03/12/24 11:00 03/12/24 11:00 03/12/24 11:00 03/12/24 11:00 03/12/24 11:00
I&O
03/11/24 03/12/24 03/13/24
06:59 06:59 06:59
Intake Total 1230 / 1230 1230 / 1230
Output Total
Balance 1230 / 1230 1228 / 1228
--- NOTE | 2024-03-12 14:58 | CM ---
Karolina from [facility] met with daughter Anabelle - performed teach of IV abx.
Patient to be discharged to home today
Ambulance forms on chart.
PLAN: Discharge to home with VN & [facility].
Ambulance transport set for 7:30pm - daughter notified - tt to hospitalist
[facility] fax #: [phone]
[2024-03-12 15:00] VITALS: BP 113/60
[2024-03-12] MEDS: FLUAD (65 yr+) 2024-2025 FORMULA 0.5 ML IM (16:40)
[2024-03-12] MEDS: LOVENOX 40 MG SC (17:00)
== END 2024-03-12 19:20 | disposition home health service (06) | DRG 464 ==
LOC: 2 NORTH 02:53
PROVIDERS: Hospitalist; Internal Medicine; Physician Assistant Surgical; Radiology Diagnostic Radiology; Radiology Vascular & Interventional Radiology; ADMITTING PHYSICIAN Internal Medicine; ATTENDING PHYSICIAN Hospitalist; CONSULT PHYSICIAN Orthopaedic Surgery Hand Surgery; CONSULT PHYSICIAN Student in an Organized Health Care Education/Training Program; EMERGENCY PHYSICIAN Emergency Medicine; FAMILY PHYSICIAN Family Medicine
PROC: 0S9D0ZZ Drainage of Left Knee Joint, Open Approach (ICD-10-PCS; 2024-03-02)
PROC: 0S9D3ZZ Drainage of Left Knee Joint, Percutaneous Approach (ICD-10-PCS; 2024-03-04)
PROC: 0SBD4ZZ Excision of Left Knee Joint, Percutaneous Endoscopic Approach (ICD-10-PCS; 2024-03-08)
PROC: 0JBP0ZZ Excision of Left Lower Leg Subcutaneous Tissue and Fascia, Open Approach (ICD-10-PCS; 2024-03-08)
PROC: 0SBD4ZX Excision of Left Knee Joint, Percutaneous Endoscopic Approach, Diagnostic (ICD-10-PCS; 2024-03-08)
PROC: B5181ZA Fluoroscopy of Superior Vena Cava using Low Osmolar Contrast, Guidance (ICD-10-PCS; 2024-03-10)
PROC: 02HV33Z Insertion of Infusion Device into Superior Vena Cava, Percutaneous Approach (ICD-10-PCS; 2024-03-10)
PROC: 3E02340 Introduction of Influenza Vaccine into Muscle, Percutaneous Approach (ICD-10-PCS; 2024-03-12)
DX: M00.062 Staphylococcal arthritis, left knee (principal); L02.416 Cutaneous abscess of left lower limb; L03.116 Cellulitis of left lower limb; F17.200 Nicotine dependence, unspecified, uncomplicated; E78.00 Pure hypercholesterolemia, unspecified; I10 Essential (primary) hypertension; N20.0 Calculus of kidney; M65.962 Unspecified synovitis and tenosynovitis, left lower leg; I73.9 Peripheral vascular disease, unspecified; K21.9 Gastro-esophageal reflux disease without esophagitis; I87.2 Venous insufficiency (chronic) (peripheral); C44.722 Squamous cell carcinoma of skin of right lower limb, including hip; C44.729 Squamous cell carcinoma of skin of left lower limb, including hip; L85.3 Xerosis cutis; B95.62 Methicillin resistant Staphylococcus aureus infection as the cause of diseases classified elsewhere; K59.00 Constipation, unspecified; M71.162 Other infective bursitis, left knee; L89.152 Pressure ulcer of sacral region, stage 2; S76.112A Strain of left quadriceps muscle, fascia and tendon, initial encounter; X58.XXXA Exposure to other specified factors, initial encounter; Y93.9 Activity, unspecified; Y92.9 Unspecified place or not applicable; J45.909 Unspecified asthma, uncomplicated; Z66 Do not resuscitate; Z87.440 Personal history of urinary (tract) infections; Z86.718 Personal history of other venous thrombosis and embolism; Z79.51 Long term (current) use of inhaled steroids; Z88.1 Allergy status to other antibiotic agents; Z88.5 Allergy status to narcotic agent; Z88.2 Allergy status to sulfonamides; Z22.322 Carrier or suspected carrier of Methicillin resistant Staphylococcus aureus; Z79.52 Long term (current) use of systemic steroids; Z87.442 Personal history of urinary calculi; Z23 Encounter for immunization
CPT/HCPCS: 20610; 36597; 71045; 73723; 76000; 80048; 80053; 80202; 83605; 83735; 85025; 85027; 85652; 86140; 87015; 87040; 87070; 87075; 87147; 87186; 87205; 89051; 89060; 90662; 94640; 96365; 97116; 97163; 97167; 97530; 97535; 99285; A9575; G0008

== ENCOUNTER 2024-08-11 12:32 | Emergency (ER) | payer OTHER, SELFPAY ==
[2024-08-11] VITALS (10 sets, daily range): BP systolic 145–176; BP diastolic 50–122; PULSE 71–96; BMI 25.9
[2024-08-11 13:12] LABS: % Basophils 0.4 % (0-2); % Eosinophils 1.6 % (0-6); % Immature Granulocytes 2.4 % (0-0.5); % Lymphocytes 13.5 % (20.5-51.1); % Neutrophils 76.1 % (42.2-75.2); Absolute Basophils 0.1 10^3/uL (0-0.2); Absolute Eosinophils 0.3 10^3/uL (0-0.7); Absolute Immature Granulocytes 0.4 10^3/uL (0-0.05); Absolute Lymphocytes 2.1 10^3/uL (1.2-3.4); Absolute Monocytes 0.9 10^3/uL (0.1-0.6); Hemoglobin 12.8 g/dL (12.0-16.0); Mean Corpuscular Hgb 29.1 pg (27.0-31.0); Mean Corpuscular Volume 90.9 fL (81.0-99.0); Mean Platelet Volume 8.8 fL (7.4-10.4); Nucleated Red Blood Cells % 0 %; Platelet Count 217 10^3/uL (130-400); Red Cell Dist. Width 16.4 % (11.5-14.5); White Blood Cell Count 15.7 10^3/uL (4.8-10.8)
[2024-08-11 13:26] LABS: ALT (SGPT) 18 U/L (0-35); AST (SGOT) 27 U/L (14-36); Albumin 3.8 g/dl (3.5-5.0); Alkaline Phosphatase 70 U/L (38-126); Blood Urea Nitrogen 34 mg/dl (7-17); Carbon Dioxide 30 mmol/L (22-30); Chloride 99 mmol/L (98-107); Estimated Creatinine Clearance 33 ml/min; Glucose 105 mg/dl (70-99); Potassium 4.1 mmol/L (3.5-5.1); Sodium 136 mmol/L (135-145); Total Bilirubin 0.8 mg/dl (0.2-1.3); Total Protein 6.4 g/dl (6.3-8.2); eGFR 55.55
--- NOTE | 2024-08-11 13:35 | ED.GENMED ---
History of Present Illness
General
Chief Complaint: Fainting/Passed Out
Source: patient and family
Exam Limitations: none
Time Seen by Provider: 08/11/24 12:45
Nursing documentation reviewed up to this point in time: agreed with
History of Present Illness
History of Present Illness:
Patient is an 84-year-old female brought to the ER by EMS. Patient was sitting on the side of the bed daughter was with her she got up to move her bowels and walked to the bathroom but felt like she was going to pass out. She reports she has had
vasovagal syncope in the past when she feels that she needs to move her bowels. This felt similar. She went to the bed to sit down and the daughter reports' her eyes rolled in the back of her head and she slid off the bed.' Daughter reports she
was talking to her as this was happening and she never fully went out.
Patient did however scrape her right knee sustaining a laceration.
Past History
Past History
ED Past Medical History: Asthma, Cancer (Squamous cell CA), HTN, Hypercholesterolemia, Other (Kidney stones, recurrent UTI, Cellulitis, DVT) and Other (kidney stone)
ED Past Surgical History: Tonsilectomy, Urological (Renal stent) and Other (Sinus surgery)
Social History
Tobacco: Smoker
Alcohol: None
Personal:
Living: with family
Family History
Family History: Other (Noncontributory)
Review of Systems
Review of Systems
Allergies reviewed?: Yes
Other source history: family
All Other Systems: ROS reviewed and negative except as documented in HPI and ROS
Constitutional: Reports no symptoms; Denies fever, fatigue or chills
EENT: Reports no symptoms
Respiratory: Reports no symptoms
Cardiac: Reports other (near syncope )
ABD/GI: Reports no symptoms
: Reports no symptoms
Musculoskeletal: Reports no symptoms
Skin: Reports other (\\skin laceration right knee )
Neurological: Reports no symptoms; Denies headache
Psychiatric: Reports no symptoms
Phy Exam
General Physical Exam
General Presentation: no apparent distress
General age: appears stated age
General Skin: warm and dry
General Habitus: normal
General Mental: alert
General Hydration: appears well hydrated
Cardiovascular Exam
Cardiovascular Exam: regular rate/rhythm, no murmur and normal peripheral pulses
Pulmonary Exam
Pulmonary Exam: lungs clear and no respiratory distress
Neurological Exam
Neurological Exam: alert and oriented x3
Musculoskeletal Exam
Musculoskeletal Exam: other (No obvious head injury right anterior knee with full-thickness flap laceration approximately 10 cm through to subcutaneous tissue only)
Skin Exam
Skin Exam: normal color and warm/dry
Psychiatric Exam
Psychiatric Exam: normal mood/affect
Course
Orders/Labs/Results
Orders:
Orders
08/11/24 12:38
EKG [Electrocardiogram (*1)] Urgent
Reason for Study: Syncope
08/11/24 12:39
EKG- Treatment ONCE
08/11/24 13:03
CMP [Comprehensive Metabolic Panel] Urgent
Complete Blood Count/With Diff Urgent
Troponin I Urgent
08/11/24 13:36
Knee, Left 4 or More Views [CR Knee - Left 4 Or More View*] Urgent
Comment:
Reason For Exam: trauma
Knee, Right 4 or More Views [CR Knee- Right 4 Or More View*] Urgent
Comment:
Reason For Exam: trauma
08/11/24 13:40
CT Head W/o Iv Contrast Urgent
Comment:
Reason For Exam: near syncope
08/11/24 15:53
Vital Signs- Treatment ONCE
Frequency: Once
Abnormal Lab Results
08/11/24
13:03
WBC 15.7 H 10^3/uL
(4.8-10.8)
MCHC 32.0 L g/dL
(33.0-37.0)
RDW 16.4 H %
(11.5-14.5)
Abs Immat Gran (auto) 0.4 H 10^3/uL
(0-0.05)
Absolute Neuts (auto) 12.0 H 10^3/uL
(1.4-6.5)
Absolute Monos (auto) 0.9 H 10^3/uL
(0.1-0.6)
Immature Gran % 2.4 H %
(0-0.5)
Neutrophils % 76.1 H %
(42.2-75.2)
Lymphocytes % 13.5 L %
(20.5-51.1)
BUN 34 H mg/dl
(7-17)
Glucose 105 H mg/dl
(70-99)
08/11/24 13:03
08/11/24 13:03
Vital Signs
Initial and Last Documented VS:
Initial Vital Signs
Pulse Resp Pulse Ox
66 12 98
08/11/24 12:39 08/11/24 12:39 08/11/24 12:39
Last Documented Vital Signs
Temp Pulse Resp BP Pulse Ox
98.4 F 78 18 171/52 96
08/11/24 12:40 08/11/24 19:23 08/11/24 19:23 08/11/24 19:23 08/11/24 19:23
Legal Internship consulted with Physician
Legal Internship consulted with physician?: Yes
Name of Physician Consulted: noh
Procedures
Laceration Closure
Right Anterior Knee:
Status of Wound: clean
Size of Wound in cm: 10
Description of Wound Edges: flap-well vascularized
Preparation: cleaned with saline
Anesthesia: 1% Lidocaine with epi
Revision/Debridement: routine- no revision
Type of Closure: single layer closure and interrupted sutures
Skin Closure Material: 3-0 nylon
Number of sutures: 3
Additional information:
With surrounding Steri-Strips
MDM/Problems Addressed
Differential Diagnosis Includes:
Not limited to near syncope dehydration electrolyte abnormality
MDM/Problems Addressed:
Patient is document is an 84-year-old female has had episodes of near syncope in the past when she needs to move her bowels. She was sitting on the side of the bed felt like she had a move her bowels got up felt like she was going to pass out sat
back on the bed and then daughter who was with patient reports she slid out of her bed never fully went but did hit her knee. She presents with a right knee laceration. She denies any headache daughter reports she had no head injury.
She denies any chest pain shortness of breath she is on blood thinners CAT scan was done and unremarkable. Patient presented awake alert no acute distress normal sinus rhythm no recent fever chills white count mildly elevated however no infectious
symptoms and afebrile here. Patient with stable hemoglobin. Patient with chronically elevated BUN I did review discussed with patient and discussed with patient to increase fluids. She has no fluid restriction no history of CHF. She has been
drinking fluids here in the ER.
X-rays of knees were done bilaterally and negative. Right knee laceration was repaired. Patient has thin skin and has been evaluate by wound center in the past will DC with wound care.
Patient was able to walk with a walker here and does have a walker at home does live with daughter. Stable for discharge home with close outpatient follow-up family doctor and wound care.
*Radiology
Radiology exam reviewed: radiology read reviewed
*Pulse Oximetry
Patient hypoxic: no
*EKG
Interpreted by ED Provider?: Yes
Interpretation: normal
Comparison EKG: no changes
Heart Rate: 69
Rate: normal
Rhythm: sinus
Ischemia: no ischemia
*Critical Care Note
Total Time (30-74mins, 75-104mins- exclusive of procedures): Not Applicable
ED Attending Note
-
Portions of this chart may have been created with voice recognition software.� Occasional wrong word or��sound alike� substitutions may have occurred due to the inherent limitations of voice recognition software.
Discharge Plan
Departure
Patient Disposition: Home (Routine Discharge)
Date of Disposition: 08/11/24
Time of Disposition: 16:43
Patient with high blood pressure during this ER visit?: Yes
Condition: Fair
Covid-19: Not Applicable
Discharge Problem:
Near syncope, Knee laceration
Instructions: Near Fainting (DC), Wound care - ED discharge instructions, BLOOD PRESSURE, Laceration
Prescriptions:
No Action
methylprednisolone 4 MG tablet
4 mg PO DAILY
cranberry extract [Ellura] 200 mg Capsule
200 mg PO DAILY Qty: 0
therapeutic multivitamin Tablet
1 tab PO HS
olmesartan-hydrochlorothiazide [Benicar HCT] 40-25 mg Tablet
1 tab PO DAILY
fluticasone propion-salmeterol [Wixela Inhub] 500-50 mcg/dose Blister With Device
1 inh INHALATION R BID
acetaminophen [Tylenol] 325 mg Tablet
650 mg PO Q4HPRN PRN (Reason: mild pain)
garlic 1,000 mg Capsule
1,000 mg PO DAILY
fluorouracil 5 % Cream
1 applic TOPICAL BID
tramadol 50 mg Tablet
50 mg PO Q6HPRN PRN (Reason: moderate pain)
cephalexin 500 mg Capsule
500 mg PO DAILY
albuterol sulfate 90 mcg/actuation Hfa Aerosol Inhaler
2 puff INHALATION R Q6HPRN PRN (Reason: sob)
magnesium oxide 400 mg magnesium Tablet
400 mg PO HS
miconazole nitrate [Miconazorb AF] 2 % Powder
1 applic topical BIDPRN PRN (Reason: RASH) Qty: 85 0RF
Rx Instructions:
APPLY TO ABD FOLDS,
GROIN, SACRUM
bisacodyl 5 mg Tablet,Delayed Release (Dr/Ec)
10 mg PO DAILYPRN PRN (Reason: constipation) Qty: 20 0RF
white petrolatum [Hydrophor] 42 % Ointment
1 applic topical DAILY Qty: 100 0RF
Rx Instructions:
FOLLOW WOUND CARE INSTRUCTIONS
sennosides-docusate sodium 8.6-50 mg Tablet
1 tab PO BID Qty: 60 0RF
vancomycin in 0.9 % sodium chl 750 mg/150 mL Piggyback
750 mg IV DAILY@0600 Qty: 900 0RF
Rx Instructions:
FOLLOW INFECTIOUS DISEASE PHYSICIAN INSTRUCTIONS REGARDING HOW MUCH AND WHAT DOSE TO ADMINISTER
carvedilol 12.5 MG tablet
6.25 mg PO BID Qty: 0 0RF
Referrals:
Roberto Carlos Almanza, [Family Provider] -
Activity Restrictions/Additional Instructions:
Keep wound clean and dry for 24 hours after 24 hours lightly wash with soap and water pat dry. Trim Steri-Strips as needed. You have [address] they need to be removed 10 days. Follow-up with wound care/family doctor for this. In
addition please continue to follow-up with wound center for wound evaluation and continued monitoring.
Call tomorrow to make an appointment as soon as possible. Also see your family doctor for reevaluation of symptoms. Stay well hydrated.
Have family doctor re-check your kidney function in the next several days.
Interventions
Interventions:
*Risk Screen - Suicide Last Done: 08/11/24 12:50
*General Assessment Last Done: 08/11/24 12:50
*Neglect/Abuse Screening Last Done: 08/11/24 12:50
*ED- Fall Risk Assessment Last Done: 08/11/24 12:40
*ED COVID-19 Vaccine History Last Done: 08/11/24 12:40
*Nursing Disposition Last Done: 08/11/24 19:23
ED- Cardiac Assessment Last Done: 08/11/24 12:40
ED- Neurological Assessment Last Done: 08/11/24 12:40
Discharge Date and Time
Discharge Date/Time: 08/11/24 19:10
Print Language: UKRAINIAN
[2024-08-11 13:53] LABS: Troponin I < 0.012 ng/ml
--- NOTE | 2024-08-11 19:22 | EDRN ---
Reviewed discharge instructions with patient. Patient verbalized understanding. Report given to ambulance staff.
== END 2024-08-11 19:10 | disposition home or self-care (01) ==
LOC: EMR 12:32
PROVIDERS: Student in an Organized Health Care Education/Training Program; EMERGENCY PHYSICIAN Emergency Medicine; FAMILY PHYSICIAN Family Medicine
DX: R55 Syncope and collapse (principal); S81.011A Laceration without foreign body, right knee, initial encounter; W06.XXXA Fall from bed, initial encounter; J45.909 Unspecified asthma, uncomplicated; I10 Essential (primary) hypertension; E78.00 Pure hypercholesterolemia, unspecified; Z86.718 Personal history of other venous thrombosis and embolism; F17.200 Nicotine dependence, unspecified, uncomplicated
CPT/HCPCS: 12004; 99285; 70450; 73564; 80053; 84484; 85025; 93005